=== PATIENT | female | born 1940 | race Caucasian/White ===

== ENCOUNTER → 2016-11-30 | Outpatient (CLI) | payer MEDICARE, BC ==
--- NOTE | 2016-12-03 08:53 | MM ---
Reason for exam: screening (asymptomatic). Last mammogram was performed 1 year ago. History: Patient is postmenopausal. Family history of premenopausal breast cancer in sister at age 57. Physical Findings: A clinical breast exam by your physician is recommended on an annual basis and results should be correlated with mammographic findings. MG Screening Mammo w CAD Bilateral CC and MLO view(s) were taken. Prior study comparison: November 28, 2015, bilateral MG screening mammo w CAD. November 26, 2014, bilateral MG screening mammo w CAD. The breast tissue is almost entirely fat. There is chronic nodularity in the left breast. No significant changes when compared with prior studies. ASSESSMENT: Benign, BI-RAD 2 RECOMMENDATION: Routine screening mammogram of both breasts in 1 year.
== END | disposition home or self-care (01) ==
LOC: RADMAMWWP 08:40
PROVIDERS: ATTEND Internal Medicine
DX: Z12.31 Encounter for screening mammogram for malignant neoplasm of breast (principal)

== ENCOUNTER 2017-07-04 14:26 | Emergency (ER) | payer MEDICARE, BC ==
[2017-07-04] MEDS ORDERED: ONDANSETRON 4 MG/2 ML VIAL IVP STA (14:54)
[2017-07-04] MEDS ORDERED: HYDROmorphone 1 MG/ML 1 ML SYRINGE IVP STA (14:54)
[2017-07-04] MEDS ORDERED: SODIUM CHLORIDE 0.9% 1,000 ML IV STA (14:54)
[2017-07-04] MEDS ORDERED: PANTOPRAZOLE 40 MG/10 ML VIAL IVP STA (14:54)
--- NOTE | 2017-07-04 14:59 | ED ---
General Adult HPI - General Chief complaint: Abdominal Pain Stated complaint: abdominal pain/diarrhea Time Seen by Provider: 07/04/17 14:42 Source: patient, RN notes reviewed Mode of arrival: ambulatory Limitations: no limitations - History of Present Illness Initial comments: Patient is 76-year-old female who presents emergency room today with a chief complaint of abdominal pain and blood in her stool. She does admit to a history of hemorrhoids. She states she saw some bright red blood on the toilet paper earlier today. She states she's had to bowel movements that she has seen blood. She does admit to abdominal cramping type pain in the lower abdomen. Admits to history of colitis. She states she has felt nauseous at times. She states symptoms started just 2 hours ago. She denies any other complaints or associated symptoms at this time. Patient denies any recent fever, chills, shortness of breath, chest pain, vomiting, numbness or tingling, dysuria or hematuria, constipation or diarrhea, headaches or visual changes, or any other complaints. - Related Data Home Medications Medication Instructions Recorded Confirmed Acetaminophen Tab [Tylenol Tab] 650 mg PO Q6H PRN 07/04/17 07/04/17 Atorvastatin [Lipitor] 10 mg PO DAILY 07/04/17 07/04/17 Dicyclomine [Bentyl] 10 mg PO BID PRN 07/04/17 07/04/17 Metoprolol Tartrate [Lopressor] 50 mg PO BID 07/04/17 07/04/17 Omeprazole 20 mg PO BID 07/04/17 07/04/17 amLODIPine BESYLATE/BENAZEPRIL 1 cap PO DAILY 07/04/17 07/04/17 [Lotrel 5-20 mg Capsule] Previous Rx's Medication Instructions Recorded Hydrocortisone Pr Cream 1 applic RECTAL TID #1 tube 07/04/17 [Proctosol-Hc 2.5%] Polyethylene Glycol 3350 [Miralax] 17 gm PO DAILY #5 packet 07/04/17 Allergies Allergy/AdvReac Type Severity Reaction Status Date / Time Penicillins Allergy Swelling Verified 07/04/17 15:03 Sulfa (Sulfonamide Allergy Unknown Verified 07/04/17 15:03 Antibiotics) Review of Systems ROS Statement: Those systems with pertinent positive or pertinent negative responses have been documented in the HPI. ROS Other: All systems not noted in ROS Statement are negative. Past Medical History Past Medical History: Hypertension Additional Past Medical History / Comment(s): colitis, History of Any Multi-Drug Resistant Organisms: None Reported Additional Past Surgical History / Comment(s): colonoscopy Past Psychological History: No Psychological Hx Reported Smoking Status: Former smoker Past Alcohol Use History: None Reported Past Drug Use History: None Reported General Exam - General Exam Comments Initial Comments: General: The patient is awake and alert, in no distress, and does not appear acutely ill. Eye: Pupils are equal, round and reactive to light, extra-ocular movements are intact. No nystagmus. There is normal conjunctiva bilaterally. No signs of icterus. Ears, nose, mouth and throat: There are moist mucous membranes and no oral lesions. Neck: The neck is supple, there is no tenderness or JVD. Cardiovascular: There is a regular rate and rhythm. No murmur, rub or gallop is appreciated. Respiratory: Lungs are clear to auscultation, respirations are non-labored, breath sounds are equal. No wheezes, stridor, rales, or rhonchi. Gastrointestinal: Soft, non-distended, non-tender abdomen without masses or organomegaly noted. There is no rebound or guarding present. No CVA tenderness. Bowel sounds are unremarkable. Musculoskeletal: Normal ROM, no tenderness. Strength 5/5. Sensation intact. Pulses equal bilaterally 2+. Neurological: A&O x 3. CN II-XII intact, There are no obvious motor or sensory deficits. Coordination appears grossly intact. Speech is normal. Skin: Skin is warm and dry and no rashes or lesions are noted. Psychiatric: Cooperative, appropriate mood & affect, normal judgment. Limitations: no limitations Course Vital Signs 07/04/17 07/04/17 14:35 17:12 Temperature 96.8 F L Pulse Rate 76 73 Respiratory 18 24 Rate Blood Pressure 140/67 107/59 O2 Sat by Pulse 98 96 Oximetry Medical Decision Making - Medical Decision Making Patient's CT reviewed does show currently. Hiatal hernia. There is some ectasia of the biliary tree that is worse than last exam. Distal common bile duct obstruction cannot be entirely excluded. Multiple small bilateral renal cortical cyst. Cyst are increased compared to old exam. Arthrosclerotic vascular disease. Stable fibrotic changes at the lung bases. Labs reviewed does show hemoglobin 13. White count 11.6. Bring labs reviewed. Case discussed with did come here to the emergency room to evaluate patient. Patient does admit to a history of hemorrhoids. States she was straining earlier today to have bowel movement. At this time he feels comfortable discharging her home to follow up with PCP place her on medications for her hemorrhoids of proctosol and MiraLAX. Vitals are stable hemoglobin stable will be discharged. Close follow-up family doctor or return to emergency room if any symptoms increase or worsen. - Lab Data Result diagrams: 07/04/17 15:35 07/04/17 15:35 Lab Results 07/04/17 07/04/17 07/04/17 Range/Units 15:35 15:35 15:35 WBC 11.6 H (3.8-10.6) k/uL RBC 4.15 (3.80-5.40) m/uL Hgb 13.0 (11.4-16.0) gm/dL Hct 38.9 (34.0-46.0) % MCV 93.8 (80.0-100.0) fL MCH 31.4 (25.0-35.0) pg MCHC 33.5 (31.0-37.0) g/dL RDW 13.5 (11.5-15.5) % Plt Count 152 (150-450) k/uL Neutrophils % 84 % Lymphocytes % 10 % Monocytes % 4 % Eosinophils % 1 % Basophils % 0 % Neutrophils # 9.7 H (1.3-7.7) k/uL Lymphocytes # 1.1 (1.0-4.8) k/uL Monocytes # 0.4 (0-1.0) k/uL Eosinophils # 0.2 (0-0.7) k/uL Basophils # 0.0 (0-0.2) k/uL PT 11.4 (9.0-12.0) sec INR 1.1 (<1.2) APTT 21.8 L (22.0-30.0) sec Sodium 139 (137-145) mmol/L Potassium 4.8 (3.5-5.1) mmol/L Chloride 105 (98-107) mmol/L Carbon Dioxide 24 (22-30) mmol/L Anion Gap 10 mmol/L BUN 22 H (7-17) mg/dL Creatinine 1.04 (0.52-1.04) mg/dL Est GFR (MDRD) Af Amer >60 (>60 ml/min/1.73 sqM) Est GFR (MDRD) Non-Af 51 (>60 ml/min/1.73 sqM) Glucose 172 H (74-99) mg/dL Calcium 9.3 (8.4-10.2) mg/dL Total Bilirubin 0.6 (0.2-1.3) mg/dL AST 22 (14-36) U/L ALT 26 (9-52) U/L Alkaline Phosphatase 137 H (38-126) U/L Total Protein 7.0 (6.3-8.2) g/dL Albumin 3.9 (3.5-5.0) g/dL Lipase 231 (23-300) U/L Stool Occult Blood (Negative) 07/04/17 Range/Units 15:35 WBC (3.8-10.6) k/uL RBC (3.80-5.40) m/uL Hgb (11.4-16.0) gm/dL Hct (34.0-46.0) % MCV (80.0-100.0) fL MCH (25.0-35.0) pg MCHC (31.0-37.0) g/dL RDW (11.5-15.5) % Plt Count (150-450) k/uL Neutrophils % % Lymphocytes % % Monocytes % % Eosinophils % % Basophils % % Neutrophils # (1.3-7.7) k/uL Lymphocytes # (1.0-4.8) k/uL Monocytes # (0-1.0) k/uL Eosinophils # (0-0.7) k/uL Basophils # (0-0.2) k/uL PT (9.0-12.0) sec INR (<1.2) APTT (22.0-30.0) sec Sodium (137-145) mmol/L Potassium (3.5-5.1) mmol/L Chloride (98-107) mmol/L Carbon Dioxide (22-30) mmol/L Anion Gap mmol/L BUN (7-17) mg/dL Creatinine (0.52-1.04) mg/dL Est GFR (MDRD) Af Amer (>60 ml/min/1.73 sqM) Est GFR (MDRD) Non-Af (>60 ml/min/1.73 sqM) Glucose (74-99) mg/dL Calcium (8.4-10.2) mg/dL Total Bilirubin (0.2-1.3) mg/dL AST (14-36) U/L ALT (9-52) U/L Alkaline Phosphatase (38-126) U/L Total Protein (6.3-8.2) g/dL Albumin (3.5-5.0) g/dL Lipase (23-300) U/L Stool Occult Blood Positive H (Negative) Disposition Clinical Impression: History of hemorrhoids, Abdominal pain Disposition: HOME SELF-CARE Condition: Poor Instructions: Abdominal Pain (ED) Additional Instructions: Please follow-up the family doctor tomorrow. Please use medication as prescribed and return here to the emergency room if any symptoms increase or worsen appropriate concerns. Prescriptions: Hydrocortisone Pr Cream [Proctosol-Hc 2.5%] 1 applic RECTAL TID #1 tube Polyethylene Glycol 3350 [Miralax] 17 gm PO DAILY #5 packet Referrals: Jhonathan Pederson MD [Primary Care Provider] - 1-2 days Time of Disposition: 17:49
[2017-07-04 15:57] LABS: Basophils % (A) 0 %; CHCM 34.3; Eosinophils # (A) 0.2 k/uL (0-0.7); Eosinophils % (A) 1 %; HCT 38.9 % (34.0-46.0); HDW 2.42; Luc # (Auto) 0.12; Luc % (Auto) 1; Lymphocytes # (A) 1.1 k/uL (1.0-4.8); Lymphocytes % (A) 10 %; MCH 31.4 pg (25.0-35.0); MCHC 33.5 g/dL (31.0-37.0); MCV 93.8 fL (80.0-100.0); Mean Platelet Volume 8.9; Monocytes # (A) 0.4 k/uL (0-1.0); Monocytes % (A) 4 %; Neutrophils # (A) 9.7 k/uL (1.3-7.7); Neutrophils % (A) 84 %; RBC 4.15 m/uL (3.80-5.40); RDW 13.5 % (11.5-15.5); WBC 11.6 k/uL (3.8-10.6); WBC (Perox) 11.38
[2017-07-04 16:00] LABS: ALT 26 U/L (9-52); AST 22 U/L (14-36); Alkaline Phosphatase 137 U/L (38-126); Anion Gap 10 mmol/L; Blood Urea Nitrogen 22 mg/dL (7-17); Calcium 9.3 mg/dL (8.4-10.2); Carbon Dioxide 24 mmol/L (22-30); Chloride 105 mmol/L (98-107); Glucose 172 mg/dL (74-99); Non-African American GFR(MDRD) 51 (>60 ml/min/1.73 sqM); Potassium 4.8 mmol/L (3.5-5.1); Sodium 139 mmol/L (137-145); Total Bilirubin 0.6 mg/dL (0.2-1.3)
--- NOTE | 2017-07-04 16:00 | XR ---
EXAMINATION TYPE: XR KUB DATE OF EXAM: 07/04/2017 COMPARISON: 10/29/2012 HISTORY: Nausea and lower abdominal pain TECHNIQUE: One view abdominal series FINDINGS: The osseous structures are intact. The bowel gas pattern is nonspecific. Lung bases are clear. Ther e is a hiatal hernia. Previous surgery involving the right upper quadrant noted. Diffuse osteopenia n oted. Vascular calcification seen. Air-fluid levels seen within the right lower quadrant. IMPRESSION: 1. Nonspecific abdomen. Single air-fluid level seen within the right lower quadrant which can be see n with enteritis, colitis or ileus. Consider follow-up CT scan.
[2017-07-04 16:12] LABS: INR 1.1 (<1.2); Prothrombin Time 11.4 sec (9.0-12.0)
[2017-07-04] MEDS ORDERED: RX INFO: IV CONTRAST WAS GIVEN 1 EACH MISC MISCELLANE PRN (16:15)
[2017-07-04 16:33] LABS: Partial Thromboplastin Time 21.8 sec (22.0-30.0)
--- NOTE | 2017-07-04 16:53 | CT ---
EXAMINATION TYPE: CT abdomen pelvis w con DATE OF EXAM: 07/04/2017 COMPARISON: 02/15/2012 HISTORY: Lower pelvic pain and hematuria. CT DLP: 1046 mGycm Automated exposure control for dose reduction was used. TECHNIQUE: Helical acquisition of images was performed from the lung bases through the pelvis. CONTRAST: Performed without Oral Contrast and with IV Contrast, patient injected with 80 mL of Visipaque 320. FINDINGS: There is fibrotic change and atelectasis at the lung bases. There is a large hiatal hernia. Heart is enlarged. There is mild ectasia of the biliary tree. There are clips from cholecystectomy. Common bile duct vic sures 12 mm. Spleen and pancreas appear normal. There are multiple bilateral renal cortical cysts that measure up to 2 cm. There is no hydronephrosis . Ureters are not dilated. There is no retroperitoneal adenopathy. Abdominal aorta is atheromatous. Bladder distends smoothly. There is no ascites. I see no intestinal wall thickening. There is no sign of bowel obstruction.: IMPRESSION: CARDIOMEGALY. HIATAL HERNIA. THERE IS SOME ECTASIA OF THE BILIARY TREE THAT IS WORSE THAN LAST EXAM. DISTAL COMMON BILE DUCT OBSTRUCTION CANNOT BE ENTIRELY EXCLUDED. MULTIPLE SMALL BILATERAL RENAL CORTICAL CYSTS. CYSTS ARE INCREASED COMPARED TO OLD EXAM. I DO NOT SEE A CAUSE FOR HEMATURIA. ATHEROSCLEROTIC VASCULAR DISEASE. STABLE FIBROTIC CHANGES AT THE LUNG BASES.
[2017-07-04 18:16] VITALS: BP 125/54; PULSE 62; RESP 18; TEMP 97.2
[2017-07-04 20:12] LABS: Amorphous Sediment,Urine Rare /hpf; Appearance,Urine Clear (Clear); Bacteria,Urine Moderate /hpf; Bilirubin,Urine Negative (Negative); Glucose,Urine (UA) Negative (Negative); Ketones,Urine Negative (Negative); Leukocyte Esterase,Urine Moderate (Negative); Mucus,Urine Rare /hpf; Nitrite,Urine Positive (Negative); PH, Urine 5.5 (5.0-8.0); Particle Count 12969; Protein,Urine 1+ (Negative); RBC,Urine 6 /hpf (0-5); Squamous Epithelial Cell,Urine 9 /hpf (0-4); UA Billing (MACRO vs. MICRO) MICRO; Urobilinogen,Urine <2.0 mg/dL (<2.0); WBC,Urine 171 /hpf (0-5)
[2017-07-04 20:22] LABS: Specific Gravity,Urine >1.050 (1.001-1.035)
== END 2017-07-04 18:26 | disposition home or self-care (01) ==
LOC: EC 14:26
DX: K64.9 Unspecified hemorrhoids (principal); R10.30 Lower abdominal pain, unspecified; R11.0 Nausea; I10 Essential (primary) hypertension; Z87.891 Personal history of nicotine dependence; Z79.899 Other long term (current) drug therapy; Z88.0 Allergy status to penicillin; Z88.2 Allergy status to sulfonamides
CPT/HCPCS: 36415; 80053; 83690; 85025; 85610; 85730; 82272; 81001; 74000; 74177; 99284; 96374; 96375 ×2; 96361 ×3; J2405; J1170; Q9967; C9113

== ENCOUNTER → 2017-12-25 | Outpatient (CLI) | payer MEDICARE, BC ==
--- NOTE | 2017-12-26 09:28 | MM ---
Reason for exam: screening (asymptomatic). Last mammogram was performed 1 year and 1 month ago. History: Patient is postmenopausal. Family history of premenopausal breast cancer in sister at age 57. Physical Findings: A clinical breast exam by your physician is recommended on an annual basis and results should be correlated with mammographic findings. MG Screening Mammo w CAD Bilateral CC and MLO view(s) were taken. Prior study comparison: November 30, 2016, bilateral MG screening mammo w CAD. November 28, 2015, bilateral MG screening mammo w CAD. There are scattered fibroglandular densities. No significant changes when compared with prior studies. ASSESSMENT: Benign, BI-RAD 2 RECOMMENDATION: Routine screening mammogram of both breasts in 1 year.
== END | disposition home or self-care (01) ==
LOC: RADMAMWWP 09:05
PROVIDERS: ATTEND Internal Medicine
DX: Z12.31 Encounter for screening mammogram for malignant neoplasm of breast (principal)
CPT/HCPCS: 77067

== ENCOUNTER 2018-04-21 10:18 | Day surgery (SDC) | payer MEDICARE, BC ==
[2018-04-17 10:39] VITALS: BMI 27.7
[~2018-04-21 10:18] MED LIST: DEXAMETHASONE SOD PHOSPHATE 10 MG/ML 1 ML VIAL IV ONE; LACTATED RINGERS 1,000 ML IV SCH; MIDAZOLAM 2 MG/2 ML VIAL IV PRN; ONDANSETRON 4 MG/2 ML VIAL IVP ONE; SCOPOLAMINE 1.5MG/72HR PATCH TRANSDERM ONE; ceFAZolin IN SWFI 2 GM/20 ML SYRINGE IVP ONE; fentaNYL (PF) 50 MCG/ML 2 ML AMP IV PRN
[2018-04-21 11:09] VITALS: TEMP 97.4
[2018-04-21] MEDS ORDERED: LIDOCAINE 1% 20 ML VIAL (10MG/ML) FOR IV START INTRADERMA ONE (11:18)
--- NOTE | 2018-04-21 12:18 | P.ONQ ---
Anesthesiology Proc Note - PNB - Peripheral Nerve Block Performed Left Infraclavicular Single Time Out Performed: Yes (1205) Procedure Start Time: 12:05 Procedure Stop Time: 12:10 Indication: Analgesia, Dx/Pain Location (Left hand pain), Requested by physician Sedation Type: Sedate with meaningful contact maintained Preparation: Sterile Prep Position: Supine Catheter: None Needle Types: On-Q Needle Size: 50mm (2") Needle Gauge: 21 Technique: Ultrasound (15ml 0.5% Ropivacaine + 15ml 2% Lidocaine w/ 1:200,000 epinephrine) Blood Aspirated: No Pain Paresthesia on Injection Noted: No
[2018-04-21] MEDS ORDERED: SODIUM CHLORIDE 0.9% 50 ML with CLINDAMYCIN 600 MG IV ONE ×2 (12:54)
[2018-04-21] MEDS ORDERED: MIDAZOLAM 2 MG/2 ML VIAL ONE (12:54)
[2018-04-21] MEDS ORDERED: PROPOFOL 10 MG/ML 20 ML VIAL IV ONE (12:54)
[2018-04-21] MEDS ORDERED: fentaNYL (PF) 50 MCG/ML 2 ML AMP ONE (12:54)
--- NOTE | 2018-04-21 13:51 | XR ---
EXAMINATION TYPE: XR wrist limited LT DATE OF EXAM: 04/21/2018 COMPARISON: NONE TECHNIQUE: Two views submitted HISTORY: Post op FINDINGS: There is postsurgical change in near anatomic alignment. There is soft tissue edema and emphysema. IMPRESSION: 1. Postoperative change. Appears in near-anatomic alignment
--- NOTE | 2018-04-21 13:52 | FL ---
EXAMINATION TYPE: FL guidance operating room DATE OF EXAM: 04/21/2018 HISTORY: Flouroscopy time 14 seconds of fluoroscopy provided. IMPRESSION: 1. Fluoroscopy time.
[2018-04-21 14:05] VITALS: RESP 18
[2018-04-21 14:51] VITALS: BP 113/63; PULSE 60
--- NOTE | 2018-04-22 11:12 | OP ---
OPERATIVE REPORT SURGERY DATE: 04/21/2018 PREOPERATIVE DIAGNOSIS: Close comminuted intra-articular fracture of distal left radius with displacement and instability (greater than 3 fragments). FINAL DIAGNOSIS: Close comminuted intra-articular fracture of the distal left radius with displacement and instability (greater than 3 fragments). PROCEDURE: Open reduction, internal fixation, left distal radius with volar plate. INDICATION: A 77-year-old woman sustained this very comminuted displaced fracture recently. It was volar displaced. Stability with internal fixation was quite satisfactory. IMPLANTS: A standard Juan Varivax plate was used. PROCEDURE: A 77-year-old woman was taken to the operative suite and given IV sedation to supplement an axillary block which was performed in the preop holding area by the Department of Anesthesia was excellent result. Her arm was prepped and draped in usual manner. It was then elevated, exsanguinated, cuff was inflated to 250 mmHg. The volar longitudinal incision was created with a distal D-shaped extension. An extended FCR approach was used. Blunt resection was taken to the insertion of the pronator quadratus, which was sharply dissected off the radius. The distal radius and fracture fragments were identified. The radial artery was gently retracted to the radial aspect and kept out of harm's way. The median nerve was kept toward the midline. Fracture was manually reduced and a standard VariAx plate was applied and secured in the typical manner. C-arm fluoroscopy was used for monitoring. Essentially anatomic reduction was obtained. C-arm fluoroscopy ensured, no screws were either in the joint nor extended dorsally into the soft tissue. The wound was thoroughly irrigated and tourniquet was released. The pronator quadratus was injured significantly from the fracture and repair really was not possible. A running 3-0 subcutaneous Vicryl suture was used for closure followed by 5-0 nylon suture. Soft bulky dressing and volar plaster splint were applied and patient taken to recovery room in satisfactory condition. MMODL / IJN: [id number] /
--- NOTE | 2018-04-30 16:50 | CDI ---
Outpatient Documentation Clarification Form Date: 04/30/18 CDS/Manager Of Broadcast Content Name: Queenie Olsen Phone: If any questions, call Irena Sams Registered Medical Assistant at [phone] Patient Name: Yasmeen Blackwell Admit Date: 04/21/18 Discharge Date: 04/21/18 ATTENTION: The [facility] Coding Staff appreciate your assistance in clarifying documentation. Please respond to the clarification below the line at the bottom and electronically sign. The [facility] Coding staff will review the response and follow-up if needed. Please note: Queries are made part of the Legal Health Record. If you have any questions, please contact the Registered Medical Assistant. Dear Dr. Dillard, The H&P states the patient injured her wrist when she tripped. Was the trip followed by a fall, or without a fall? This information is necessary in order to properly code the external cause of this injury. As a coding professional, I may not assume one way or the other. Thank you for your kind consideration. MTDD
== END 2018-04-21 15:33 | disposition home or self-care (01) ==
LOC: OR 10:18
PROVIDERS: ATTEND Orthopaedic Surgery Hand Surgery
DX: S52.572A Other intraarticular fracture of lower end of left radius, initial encounter for closed fracture (principal); E78.5 Hyperlipidemia, unspecified; I10 Essential (primary) hypertension; Z79.899 Other long term (current) drug therapy; Z87.891 Personal history of nicotine dependence; W18.40XA Slipping, tripping and stumbling without falling, unspecified, initial encounter; W01.0XXA Fall on same level from slipping, tripping and stumbling without subsequent striking against object, initial encounter
CPT/HCPCS: 25609; 64450; 73100; C1713; J2250; J1100; J2405; J3010; J2704

== ENCOUNTER → 2018-12-29 | Outpatient (CLI) | payer MEDICARE, BC ==
--- NOTE | 2018-12-29 13:04 | MM ---
Reason for exam: screening (asymptomatic). Last mammogram was performed 1 year ago. History: Patient is postmenopausal. Family history of premenopausal breast cancer in sister at age 57. Physical Findings: A clinical breast exam by your physician is recommended on an annual basis and results should be correlated with mammographic findings. MG Screening Mammo w CAD Bilateral CC and MLO view(s) were taken. Prior study comparison: December 25, 2017, bilateral MG screening mammo w CAD. November 30, 2016, bilateral MG screening mammo w CAD. There are scattered fibroglandular densities. There is no discrete abnormality. No significant changes when compared with prior studies. ASSESSMENT: Negative, BI-RAD 1 RECOMMENDATION: Routine screening mammogram of both breasts in 1 year.
== END | disposition home or self-care (01) ==
LOC: RADMAMWWP 08:00
PROVIDERS: ATTEND Internal Medicine
DX: Z12.31 Encounter for screening mammogram for malignant neoplasm of breast (principal)
CPT/HCPCS: 77067

== ENCOUNTER 2019-03-25 17:36 | Emergency (ER) | payer MEDICARE, BC ==
--- NOTE | 2019-03-25 19:08 | XR ---
EXAMINATION TYPE: XR knee complete bilateral DATE OF EXAM: 03/25/2019 COMPARISON: NONE HISTORY: Pain TECHNIQUE: 3 views each knee FINDINGS: There is significant soft tissue swelling anterior to the left patella. I see no fracture n or dislocation. There is no sign of joint effusion. Joint spaces are normal. IMPRESSION: Left-sided soft tissue swelling. No fracture seen.
--- NOTE | 2019-03-25 19:08 | XR ---
EXAMINATION TYPE: XR humerus RT DATE OF EXAM: 03/25/2019 COMPARISON: NONE HISTORY: Pain TECHNIQUE: 2 views FINDINGS: I see no fracture nor dislocation. Shoulder joint and elbow joint appear intact. IMPRESSION: Negative right humerus exam.
--- NOTE | 2019-03-25 19:11 | CT ---
EXAMINATION TYPE: CT brain rosie monge DATE OF EXAM: 03/25/2019 COMPARISON: None HISTORY: Fall today. Left sided facial injury. CT DLP: 1037.2 brain and facial scanned together mGycm Automated exposure control for dose reduction was used. TECHNIQUE: CT scan of the head and cervical spine are performed without contrast. FINDINGS: There is cerebral cortical atrophy. There is no mass effect nor midline shift. There is n o sign of intracranial hemorrhage. The calvarium is intact. Cervical vertebra have normal alignment. There is degenerative moderate disc space narrowing at C5-6. There is spurring of the endplates. Posterior elements are intact. There is mild hypertrophic facet arthropathy. Skull base is intact. 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 No fracture seen. Cerebral atrophy. No acute intracranial abnormality.
--- NOTE | 2019-03-25 19:12 | CT ---
EXAMINATION TYPE: CT facial bones wo con DATE OF EXAM: 03/25/2019 COMPARISON: None HISTORY: Fall today. Left sided facial injury. CT DLP: 1037.2 brain and facial scanned together mGycm Automated exposure control for dose reduction was used. TECHNIQUE: CT scan of the sinuses is performed without contrast, axial images are obtained, coronal r eformatted images are also reviewed. FINDINGS: The orbital margins are intact. There is no evidence of a blowout fracture. Mandibular ring is intact. Temporomandibular joints appear normal. Zygomatic arches are intact. The maxilla is intact. Nasal bone appears intact. There is no evidence of retro-orbital mass. There i s fairly normal aeration of the paranasal sinuses. IMPRESSION: Negative CT scan of the facial bones. No fracture.
--- NOTE | 2019-03-25 19:25 | ED ---
Fall HPI - General Chief Complaint: Fall Stated Complaint: Fall Time Seen by Provider: 03/25/19 17:53 Source: patient Mode of arrival: wheelchair - History of Present Illness Initial Comments: 78-year-old female presenting for follow-up. Patient states that she tripped over her own two feet falling forward onto her left knee she states she had left side of her face. She states she also had pain in the right mid arm. Patient denies loss of consciousness. Patient denies any use of anticoagulation. Patient states she is most concerned of her left knee as it is swollen and painful. She states she is able to weight-bear. She denies any neck or back pain. Patient has a nausea vomiting headache dizziness loss of vision. Patient has any pain of the ankles wrist or elbows. Patient denies any numbness tingling or loss sensation. Remaining review of systems negative patient denies any other areas of injury. Upon arrival patient's amateur appearing well no signs of acute distress - Related Data Home Medications Medication Instructions Recorded Confirmed Acetaminophen Tab [Tylenol Tab] 325 - 650 mg PO Q6H PRN 07/04/17 04/21/18 Atorvastatin [Lipitor] 10 mg PO DAILY 07/04/17 04/21/18 Dicyclomine [Bentyl] 10 mg PO BID PRN 07/04/17 04/21/18 Metoprolol Tartrate [Lopressor] 50 mg PO BID 07/04/17 04/21/18 amLODIPine BESYLATE/BENAZEPRIL 1 cap PO DAILY 07/04/17 04/21/18 [Lotrel 5-20 mg Capsule] Ranitidine HCl [Zantac] 150 mg PO BID 04/17/18 04/21/18 Allergies Allergy/AdvReac Type Severity Reaction Status Date / Time Penicillins Allergy Swelling Verified 04/21/18 11:13 Sulfa (Sulfonamide Allergy Swelling Verified 04/21/18 11:13 Antibiotics) Review of Systems ROS Statement: Those systems with pertinent positive or pertinent negative responses have been documented in the HPI. ROS Other: All systems not noted in ROS Statement are negative. Past Medical History Past Medical History: Hyperlipidemia, Hypertension Additional Past Medical History / Comment(s): FX LEFT WRIST, IN HALF CAST, colitis, History of Any Multi-Drug Resistant Organisms: None Reported Past Surgical History: Appendectomy, Cholecystectomy, Tubal Ligation Additional Past Surgical History / Comment(s): colonoscopy Past Anesthesia/Blood Transfusion Reactions: No Reported Reaction Past Psychological History: No Psychological Hx Reported Smoking Status: Former smoker Past Alcohol Use History: None Reported Past Drug Use History: None Reported General Exam - General Exam Comments Initial Comments: General: The patient is awake and alert, in no distress, and does not appear acutely ill. Eye: +3mm pupils are equal, round and reactive to light, extra-ocular movements are intact. No nystagmus. There is normal conjunctiva bilaterally. No signs of icterus. Ears, nose, mouth and throat: There are moist mucous membranes and no oral lesi ons. TM WNL. No raccoon or Correa sign. Neck: The neck is supple, there is no tenderness or JVD. Tenderness to palpation midline or paravertebral the cervical thoracic or lumbar spine. Cardiovascular: There is a regular rate and rhythm. No murmur, rub or gallop is appreciated. Respiratory: Lungs are clear to auscultation, respirations are non-labored, breath sounds are equal. No wheezes, stridor, rales, or rhonchi. Gastrointestinal: Soft, non-distended, non-tender abdomen without masses or organomegaly noted. There is no rebound or guarding present. No CVA tenderness. Bowel sounds are unremarkable. Musculoskeletal: Upon inspection of the joints of the upper and lower extremities there is soft tissue swelling of the left knee. There is superficial abrasion. Otherwise no others areas of soft tissue swelling or erythema. Patient is able to range at the shoulders bilaterally well as the wrist. No limitations. Patient points to tenderness over the mid humerus shaft. No pain to palpation of the clavicles anterior posterior shoulder. Negative logroll. Patient is able to extend the knees bilaterally. No tenderness to palpation of the right knee. Patient is anterior tenderness palpation of the left knee. Patient is able to fully range at the ankles bilaterally. No point localized tenderness. Sensation intact both proximal and distal to injury site (lelft knee). However sensation was tested on the upper extremities and lower extremities bilaterally no deficits noted. Strength 5/5 all large joints of the upper and lower extremities. Radial and DP pulses equal bilaterally 2+. Neurological: A&O x 3. CN II-XII intact, There are no obvious motor or sensory deficits. Coordination appears grossly intact. Speech is normal. Skin: Skin is warm and dry and no rashes or lesions are noted. Psychiatric: Cooperative, appropriate mood & affect, normal judgment. Limitations: no limitations Course Vital Signs 03/25/19 03/25/19 17:43 19:57 Temperature 98.0 F 97.9 F Pulse Rate 62 56 L Respiratory 18 16 Rate Blood Pressure 175/81 145/72 O2 Sat by Pulse 98 96 Oximetry Medical Decision Making - Medical Decision Making 78-year-old male presenting for follow-up. Imaging studies negative for acute osseous process. Extensor mechanism intact of the left knee. Anterior soft tissue swelling. Patient neurovascularly intact. Patient is able to weight- bear ambulate and range at the left knee. Patient placed in knee immobilizer however encouraged to remove it daily multiple times to decrease the risk of stiffness. CT of the brain and C-spine and facial bones reveal no injury. Patient has no neurological complaints. No focal neurological deficits. Imaging studies were obtained due to history of having left-sided face with patient's advanced age. Imaging studies of the right humerus revealed no acute injury. At this time I feel patient still for discharge with diagnosis of left knee pain, from mechanical fall. I discussed the case by attending provider Dr. Mathew who is agreeable with care plan and discharge. Importance of follow-up and return parameters were discussed at length the patient who verbalized understanding. Patient states she is ready to go home. Patient was discharged able to weight-bear appearing well Disposition Clinical Impression: Fall, Right arm pain, Left knee pain, Left-sided face pain Disposition: HOME SELF-CARE Condition: Good Instructions (If sedation given, give patient instructions): Fall Prevention for Older Adults (ED), R.I.C.E. Treatment (ED) Additional Instructions: Please use medication as discussed. Please follow-up with family doctor in the next 2 days. Please follow up with her orthopedic surgeon within the next 2-3 days if symptoms persist. Please return to emergency room if the symptoms increase or worsen or for any other concerns. Is patient prescribed a controlled substance at d/c from ED?: No Referrals: Jhonathan Pederson MD [Primary Care Provider] - 1-2 days Santo Dillard DO [Doctor of Osteopathic Medicine] - 1-2 days Time of Disposition: 19:48
[2019-03-25 19:58] VITALS: BP 145/72; PULSE 56; RESP 16; TEMP 97.9
== END 2019-03-25 19:58 | disposition home or self-care (01) ==
LOC: EC 17:36
DX: S80.212A Abrasion, left knee, initial encounter (principal); R51 Headache; M79.601 Pain in right arm; R11.2 Nausea with vomiting, unspecified; R42 Dizziness and giddiness; H54.7 Unspecified visual loss; E78.5 Hyperlipidemia, unspecified; I10 Essential (primary) hypertension; Z87.891 Personal history of nicotine dependence; Z79.899 Other long term (current) drug therapy; Z88.0 Allergy status to penicillin; Z88.2 Allergy status to sulfonamides; W18.09XA Striking against other object with subsequent fall, initial encounter; Y92.009 Unspecified place in unspecified non-institutional (private) residence as the place of occurrence of the external cause
CPT/HCPCS: 73562; 73060; 72125; 70486; 70450; 99284; L1830

== ENCOUNTER 2020-02-14 18:21 | Emergency (ER) | payer MEDICARE, BC ==
[2020-02-14 18:28] VITALS: TEMP 97.5
[2020-02-14] MEDS ORDERED: HYDROmorphone 0.5 MG/0.5 ML SYRINGE IVP STA (19:11)
--- NOTE | 2020-02-14 19:17 | ED ---
General Adult HPI - General Source: patient, RN notes reviewed Mode of arrival: ambulatory Limitations: no limitations <Patricio Corona - Last Filed: 02/14/20 21:23> <Joel Oliveira - Last Filed: 02/14/20 22:20> - General Chief complaint: Fall Stated complaint: Fall Time Seen by Provider: 02/14/20 18:35 - History of Present Illness Initial comments: 79-year-old female with a past medical history of hyperlipidemia, hypertension presents to the emergency department for a chief complaint of right shoulder pain. Patient states she hurt her ankle a few days ago when she was at her sister's house. States her house is new and she has not used to the lay out and she tripped injuring her right ankle. Today patient states that because of his ankle she was leaving her house and again tripped and fell on her right shoulder. States she cannot move her right shoulder because of the pain. She did not hit her head. She is not on blood thinners.Patient has no other complaints at this time including shortness of breath, chest pain, abdominal pain, nausea or vomiting, headache, or visual changes. (Patricio Corona) - Related Data Home Medications Medication Instructions Recorded Confirmed Acetaminophen Tab [Tylenol Tab] 325 - 650 mg PO Q6H PRN 07/04/17 04/21/18 Atorvastatin [Lipitor] 10 mg PO DAILY 07/04/17 04/21/18 Dicyclomine [Bentyl] 10 mg PO BID PRN 07/04/17 04/21/18 Metoprolol Tartrate [Lopressor] 50 mg PO BID 07/04/17 04/21/18 amLODIPine BESYLATE/BENAZEPRIL 1 cap PO DAILY 07/04/17 04/21/18 [Lotrel 5-20 mg Capsule] Ranitidine HCl [Zantac] 150 mg PO BID 04/17/18 04/21/18 Allergies Allergy/AdvReac Type Severity Reaction Status Date / Time Penicillins Allergy Swelling Verified 02/14/20 18:26 Sulfa (Sulfonamide Allergy Swelling Verified 02/14/20 18:26 Antibiotics) Review of Systems ROS Other: All systems not noted in ROS Statement are negative. <Patricoi Corona - Last Filed: 02/14/20 21:23> ROS Other: All systems not noted in ROS Statement are negative. <Joel Oliveira - Last Filed: 02/14/20 22:20> ROS Statement: Those systems with pertinent positive or pertinent negative responses have been documented in the HPI. Past Medical History Past Medical History: Hyperlipidemia, Hypertension Additional Past Medical History / Comment(s): FX LEFT WRIST, IN HALF CAST, colitis, History of Any Multi-Drug Resistant Organisms: ESBL Date of last positivie culture/infection: 09/30/19 ESBL E. coli MDRO Source:: Urine Past Surgical History: Appendectomy, Cholecystectomy, Tubal Ligation Additional Past Surgical History / Comment(s): colonoscopy Past Anesthesia/Blood Transfusion Reactions: No Reported Reaction Past Psychological History: No Psychological Hx Reported Smoking Status: Former smoker Past Alcohol Use History: None Reported Past Drug Use History: None Reported <Patricio Corona - Last Filed: 02/14/20 21:23> General Exam Limitations: no limitations General appearance: alert, in no apparent distress Head exam: Present: atraumatic, normocephalic, normal inspection Eye exam: Present: normal appearance, PERRL, EOMI. Absent: scleral icterus, conjunctival injection, periorbital swelling ENT exam: Present: normal exam, mucous membranes moist Neck exam: Present: normal inspection, full ROM. Absent: tenderness, meningismus Respiratory exam: Present: normal lung sounds bilaterally. Absent: respiratory distress, wheezes, rales, rhonchi, stridor Cardiovascular Exam: Present: regular rate, normal rhythm, normal heart sounds. Absent: systolic murmur, diastolic murmur, rubs, gallop, clicks GI/Abdominal exam: Present: soft, normal bowel sounds. Absent: distended, tenderness, guarding, rebound, rigid Neurological exam: Present: alert <Patricio Corona - Last Filed: 02/14/20 21:23> - General Exam Comments Initial Comments: Right ankle: Patient has tenderness to the lateral malleolus of the right ankle. She does not have any medial malleoli tenderness. Patient does not have any foot tenderness including the navicular or fifth metatarsal. Patient has pain with dorsiflexion of the right ankle. DP pulses 2+. There is some edema and ecchymosis noted of the right ankle. Sensation is intact. Right shoulder: Patient is holding right shoulder in abducted position. Radial pulses 2+. Sensation intact in the right hand. Patient has pain with any range of motion of the right shoulder. No ecchymosis or skin lesions. (Patricio Corona) Course Vital Signs 02/14/20 02/14/20 02/14/20 18:26 19:08 20:09 Temperature 97.5 F L Pulse Rate 69 82 Respiratory 18 18 18 Rate Blood Pressure 171/95 133/73 O2 Sat by Pulse 98 97 Oximetry 02/14/20 02/14/20 02/14/20 20:18 20:32 20:49 Temperature Pulse Rate 63 56 L 55 L Respiratory 16 17 17 Rate Blood Pressure 126/75 121/57 128/54 O2 Sat by Pulse 100 98 99 Oximetry Procedures - Orthopedic Joint Reduction Joint #1 Consent Obtained: verbal consent Side: right Joint Reduction Location: shoulder Analgesia: procedural sedation Shoulder Technique Used (if applicable): traction/counter-traction, external rotation Post-Reduction Neuro Exam: intact Post-Reduction Vascular Exam: intact Post Reduction X-Ray Obtained: Yes Post Reduction X-Ray Results: reduced Splint Applied: Yes (immobilizer) Patient Tolerated Procedure: well, no complications - Orthopedic Splinting/Casting Injury #2 Side: right Lower Extremity Injury Location: short leg Lower Extremity Immobilizer: stirrup splint <Patricio Corona - Last Filed: 02/14/20 21:23> - Procedural Sedation Procedural Sedation Start Time: 20:05 Procedural Sedation Stop Time: 20:30 Indications: fracture/dislocation reduction ASA Class: II Mallampati Airway Score: 2 Preparation: monitoring tech applied, pulse oximeter IV Etomidate Dose (mgs): 16 Complications: none Patient Tolerated Procedure: well, no complications <Joel Oliveira - Last Filed: 02/14/20 22:20> Medical Decision Making <Patricio Corona - Last Filed: 02/14/20 21:23> - Medical Decision Making 79-year-old female presents for mechanical fall. Patient is complaining of pain in the right ankle from several days ago. This does show a possible fracture inferior lateral malleolus. This is where patient's tenderness is located. X- ray of the right shoulder does show an anterior dislocation of the right humeral head. The shoulder is reduced by myself and Dr. Oliveira without difficulty. Sling was placed. She is awake and alert following reduction. X-ray of the right shoulder shows a reduction of the previous right shoulder dislocation. No acute fractures are evident. There does show mild infiltrate that may be within the right lung. However patient is not having any cough or fever. I did offer chest x-ray but she declined saying she will come back if she develops symptoms. X-ray of the right ankle shows a possible fracture of the inferior lateral malleolus. Patient did hurt her ankle area days ago and is tender over this area. Therefore she was splinted. She will follow-up with orthopedics. [facility]. She will return for any worsening symptoms. (Patricio Corona) Disposition Is patient prescribed a controlled substance at d/c from ED?: No Time of Disposition: 20:36 <Patricio Corona - Last Filed: 02/14/20 21:23> <Joel Oliveira - Last Filed: 02/14/20 22:20> Clinical Impression: Shoulder dislocation, Lateral malleolar fracture Disposition: HOME SELF-CARE Condition: Good Instructions (If sedation given, give patient instructions): Shoulder Dislocation (ED) Additional Instructions: Please take tylenol 3 for pain as needed. Keep splint in place. Keep sling in place. Follow up with orthopedics in 1-2 days. Return to the ER if you have any worsening symptoms. Referrals: Jhonathan Pederson MD [Primary Care Provider] - 1-2 days Michelle Morfin DO [Doctor of Osteopathic Medicine] - 1-2 days
--- NOTE | 2020-02-14 19:26 | XR ---
EXAMINATION TYPE: XR ankle complete RT DATE OF EXAM: 02/14/2020 COMPARISON: None HISTORY: Pain, fall TECHNIQUE: Three-view right ankle FINDINGS: There is soft tissue swelling over the lateral malleolus right ankle. Ankle mortise appears intact. There may be some vague calcification inferior to the lateral malleolus. An avulsion should be considered of this may be of indeterminate age however, the donor site appears to have a normal co rtex. No additional areas suspicious for fracture is evident. IMPRESSION: 1. Possible fracture inferior lateral malleolus is indeterminate age.
--- NOTE | 2020-02-14 19:27 | XR ---
EXAMINATION TYPE: XR shoulder complete RT DATE OF EXAM: 02/14/2020 COMPARISON: None HISTORY: Pain TECHNIQUE: 2 view right shoulder FINDINGS: There is an anterior inferior dislocation of the right humeral head from the glenoid. No ac [place] fractures are identified. Acromioclavicular junction appears normal. IMPRESSION: 1. Dislocation right humeral head, glenoid.
--- NOTE | 2020-02-14 19:27 | XR ---
EXAMINATION TYPE: XR humerus RT DATE OF EXAM: 02/14/2020 COMPARISON: Right shoulder HISTORY: Fall, pain TECHNIQUE: 2 view right humerus FINDINGS: The dislocated humeral head from the glenoid is again evident. No acute fractures the humer us are evident. IMPRESSION: 1. Dislocation humeral head. 2. Follow-up exams can be performed 7-10 days from acute trauma for continued pain.
[2020-02-14] MEDS ORDERED: ETOMIDATE 2 MG/ML 10 ML VIAL IVP STA (19:29)
[2020-02-14 20:33] VITALS: RESP 17
[2020-02-14] MEDS ORDERED: ACET/COD 300 MG/30 MG STARTER PACK 6 TAB BTL PO STA (20:35)
--- NOTE | 2020-02-14 20:43 | XR ---
EXAMINATION TYPE: XR shoulder limited RT DATE OF EXAM: 02/14/2020 COMPARISON: Shoulder and humerus earlier in the day HISTORY: Dislocation TECHNIQUE: Post reduction FINDINGS: Humeral head articulates with the glenoid on this single AP view. The acromioclavicular jens ction is normal. No fractures are identified on this image. There may be some slight infiltrate throughout the right lung. Clinical correlation recommended. IMPRESSION: 1. Reduction of previous right shoulder dislocation. No acute fractures are evident. 2. Mild infiltrate may be within the right lung. Clinical correlation recommended.
[2020-02-14 20:50] VITALS: BP 128/54; PULSE 55
[2020-02-14] MEDS ORDERED: ONDANSETRON 4 MG/2 ML VIAL IVP STA (20:56)
== END 2020-02-14 21:20 | disposition home or self-care (01) ==
LOC: EC 18:21
DX: S43.014A Anterior dislocation of right humerus, initial encounter (principal); S43.034A Inferior dislocation of right humerus, initial encounter; S82.64XA Nondisplaced fracture of lateral malleolus of right fibula, initial encounter for closed fracture; I10 Essential (primary) hypertension; E78.5 Hyperlipidemia, unspecified; Z79.899 Other long term (current) drug therapy; Z88.0 Allergy status to penicillin; Z88.2 Allergy status to sulfonamides; Z87.891 Personal history of nicotine dependence; W01.0XXA Fall on same level from slipping, tripping and stumbling without subsequent striking against object, initial encounter
CPT/HCPCS: 73020; 73030; 73060; 73610; 99283; 23650; 29515; 99152; 99153; 96374; J2405

== ENCOUNTER 2020-02-22 10:17 | Emergency (ER) | payer MEDICARE, BC ==
[2020-02-22 10:35] VITALS: TEMP 97.3
--- NOTE | 2020-02-22 10:53 | ED ---
Upper Extremity HPI - General Chief Complaint: Extremity Injury, Upper Stated Complaint: R shoulder pain Time Seen by Provider: 02/22/20 10:40 Source: patient Mode of arrival: ambulatory Limitations: no limitations - History of Present Illness Initial Comments: This is a 79-year-old female who presents with complaints of increasing right shoulder pain. She was here at the end of January and did have a subluxation was reduced also the same time she was diagnosed with a right foot fracture. She states she does have an orthopedic boot and has seen orthopedics. She is scheduled to see them again at the end of February. Patient does complain of shoulder pain she states she decided that were the boot today and was comfortable. She denies any new injury however. MD Complaint: Injury to:: right, shoulder - Related Data Home Medications Medication Instructions Recorded Confirmed Acetaminophen Tab [Tylenol Tab] 325 - 650 mg PO Q6H PRN 07/04/17 04/21/18 Atorvastatin [Lipitor] 10 mg PO DAILY 07/04/17 04/21/18 Dicyclomine [Bentyl] 10 mg PO BID PRN 07/04/17 04/21/18 Metoprolol Tartrate [Lopressor] 50 mg PO BID 07/04/17 04/21/18 amLODIPine BESYLATE/BENAZEPRIL 1 cap PO DAILY 07/04/17 04/21/18 [Lotrel 5-20 mg Capsule] Ranitidine HCl [Zantac] 150 mg PO BID 04/17/18 04/21/18 Previous Rx's Medication Instructions Recorded Ibuprofen [Motrin] 600 mg PO Q6HR PRN #20 tab 02/22/20 Allergies Allergy/AdvReac Type Severity Reaction Status Date / Time Penicillins Allergy Swelling Verified 02/22/20 10:35 Sulfa (Sulfonamide Allergy Swelling Verified 02/22/20 10:35 Antibiotics) Review of Systems ROS Statement: Those systems with pertinent positive or pertinent negative responses have been documented in the HPI. ROS Other: All systems not noted in ROS Statement are negative. Past Medical History Past Medical History: Hyperlipidemia, Hypertension Additional Past Medical History / Comment(s): FX LEFT WRIST, IN HALF CAST, colitis, History of Any Multi-Drug Resistant Organisms: ESBL Date of last positivie culture/infection: 09/30/19 ESBL E. coli MDRO Source:: Urine Past Surgical History: Appendectomy, Cholecystectomy, Tubal Ligation Additional Past Surgical History / Comment(s): colonoscopy Past Anesthesia/Blood Transfusion Reactions: No Reported Reaction Past Psychological History: No Psychological Hx Reported Smoking Status: Former smoker Past Alcohol Use History: None Reported Past Drug Use History: None Reported General Exam - General Exam Comments Initial Comments: This is a well-developed well-nourished awake alert oriented x 3 female Limitations: no limitations General appearance: alert, anxious Head exam: Present: atraumatic, normocephalic, normal inspection Eye exam: Present: normal appearance, PERRL, EOMI. Absent: scleral icterus, conjunctival injection, periorbital swelling ENT exam: Present: normal exam, mucous membranes moist Neck exam: Present: normal inspection. Absent: tenderness, meningismus, lymphadenopathy Respiratory exam: Present: normal lung sounds bilaterally. Absent: respiratory distress, wheezes, rales, rhonchi, stridor Cardiovascular Exam: Present: regular rate, normal rhythm, normal heart sounds. Absent: systolic murmur, diastolic murmur, rubs, gallop, clicks GI/Abdominal exam: Absent: distended, tenderness, guarding, rebound, rigid Extremities exam: Present: normal inspection, full ROM, tenderness (There is a right shoulder no evidence of subluxation or step-off or crepitation at this time patient does have a sling and place this in the right foot does demonstrate evidence of some ecchymosis no evidence of new injury however.), normal capillary refill. Absent: pedal edema, joint swelling, calf tenderness Back exam: Present: normal inspection Neurological exam: Present: alert, oriented X3, CN II-XII intact Psychiatric exam: Present: normal affect, anxious Skin exam: Present: warm, dry, intact, normal color. Absent: rash Course Vital Signs 02/22/20 10:32 Temperature 97.3 F L Pulse Rate 68 Respiratory 20 Rate Blood Pressure 145/77 O2 Sat by Pulse 99 Oximetry Medical Decision Making - Medical Decision Making I did discuss findings with the patient. Patient does have complaints of right shoulder pain she states it occurred is while she tried to reach for something. The x-ray is unremarkable for any evidence of fracture or subluxation. Is likely residual muscle strain. I did recommend the patient use warm compresses as well as a short course of NSAIDs. She states she is able tolerate this. She does have follow-up with orthopedics she is to keep this. - Radiology Data Radiology results: report reviewed (I did review the imaging and report no acute findings.), image reviewed Disposition Clinical Impression: Strain of shoulder Disposition: HOME SELF-CARE Condition: Good Instructions (If sedation given, give patient instructions): Rotator Cuff Injury (ED) Additional Instructions: Medication prescription sent to your preferred pharmacy Prescriptions: Ibuprofen [Motrin] 600 mg PO Q6HR PRN #20 tab PRN Reason: Pain Is patient prescribed a controlled substance at d/c from ED?: No Referrals: Jhonathan Pederson MD [Primary Care Provider] - 1-2 days
--- NOTE | 2020-02-22 11:10 | XR ---
EXAMINATION TYPE: XR shoulder complete RT DATE OF EXAM: 02/22/2020 CLINICAL HISTORY: Status post right shoulder dislocation. Right shoulder continued pain. TECHNIQUE: Three views of the right shoulder are obtained. COMPARISON: None. FINDINGS: There is diffuse osseous demineralization. There is no acute fracture/dislocation evident i n the right shoulder. The acromioclavicular and glenohumeral joint spaces appear aligned with modera te acromioclavicular arthropathy demonstrated as capsular hypertrophy and marginal osteophytes. The visualized ribs are intact and unremarkable. IMPRESSION: No fracture or repeat dislocation seen in the right shoulder.
[2020-02-22 12:03] VITALS: BP 113/92; PULSE 58; RESP 16
== END 2020-02-22 12:03 | disposition home or self-care (01) ==
LOC: EC 10:17
DX: S46.911A Strain of unspecified muscle, fascia and tendon at shoulder and upper arm level, right arm, initial encounter (principal); E78.5 Hyperlipidemia, unspecified; I10 Essential (primary) hypertension; Z87.891 Personal history of nicotine dependence; Z79.899 Other long term (current) drug therapy; Z88.0 Allergy status to penicillin; Z88.2 Allergy status to sulfonamides; W19.XXXA Unspecified fall, initial encounter; Y92.009 Unspecified place in unspecified non-institutional (private) residence as the place of occurrence of the external cause
CPT/HCPCS: 99283

== ENCOUNTER → 2020-04-08 | Outpatient (CLI) | payer MEDICARE, BC ==
--- NOTE | 2020-04-12 08:22 | MM ---
Reason for exam: screening (asymptomatic). Last mammogram was performed 1 year and 3 months ago. History: Patient is postmenopausal. Family history of premenopausal breast cancer in sister at age 57. Physical Findings: A clinical breast exam by your physician is recommended on an annual basis and results should be correlated with mammographic findings. MG Screening Mammo w CAD Bilateral CC and MLO view(s) were taken. Prior study comparison: December 29, 2018, bilateral MG screening mammo w CAD. December 25, 2017, bilateral MG screening mammo w CAD. There are scattered fibroglandular densities. There is chronic nodularity in the left breast. No significant changes when compared with prior studies. ASSESSMENT: Benign, BI-RAD 2 RECOMMENDATION: Routine screening mammogram of both breasts in 1 year.
== END | disposition home or self-care (01) ==
LOC: RADMAMWWP 09:11
PROVIDERS: ATTEND Internal Medicine
DX: Z12.31 Encounter for screening mammogram for malignant neoplasm of breast (principal)
CPT/HCPCS: 77067

== ENCOUNTER 2021-08-02 11:24 | Observation (INO) | payer MEDICARE, BC ==
[2021-08-01 08:53] VITALS: BMI 25.6
[~2021-08-02 11:24] MED LIST changes: +CLINDAMYCIN 900 MG in DEXTROSE 5% IN WATER 50 ML IVPB PRN; -DEXAMETHASONE SOD PHOSPHATE 10 MG/ML 1 ML VIAL IV ONE; -LACTATED RINGERS 1,000 ML IV SCH; -MIDAZOLAM 2 MG/2 ML VIAL IV PRN; -ONDANSETRON 4 MG/2 ML VIAL IVP ONE; -SCOPOLAMINE 1.5MG/72HR PATCH TRANSDERM ONE; -ceFAZolin IN SWFI 2 GM/20 ML SYRINGE IVP ONE; -fentaNYL (PF) 50 MCG/ML 2 ML AMP IV PRN
[2021-08-02] MEDS ORDERED: ONDANSETRON 4 MG/2 ML VIAL IVP ONE (11:47)
[2021-08-02] MEDS ORDERED: DEXAMETHASONE SOD PHOSPHATE 4 MG/ML 1 ML VIAL IV ONE (11:47)
[2021-08-02] MEDS ORDERED: LIDOCAINE 1% (10MG/ML) FOR IV START INTRADERMA PRN (11:47)
[2021-08-02] MEDS ORDERED: MIDAZOLAM 2 MG/2 ML VIAL IV PRN (11:47)
[2021-08-02] MEDS ORDERED: LACTATED RINGERS 1,000 ML IV SCH (11:47)
[2021-08-02] MEDS ORDERED: MIDAZOLAM 2 MG/2 ML VIAL IVP ONE (12:36)
[2021-08-02] MEDS ORDERED: LIDOCAINE 1% INJ 10MG/ML (20 ML MDV) ONE (12:57)
[2021-08-02] MEDS ORDERED: SUCCINYLCHOLINE CHLORIDE 100 MG/5 ML SYR IV ONE (12:57)
[2021-08-02] MEDS ORDERED: fentaNYL (PF) 50 MCG/ML 2 ML AMP ONE (12:57)
[2021-08-02] MEDS ORDERED: GLYCOPYRROLATE 0.2 MG/ML 2 ML VIAL ONE (12:57)
[2021-08-02] MEDS ORDERED: PROPOFOL 10 MG/ML 20 ML VIAL IV ONE (12:57)
[2021-08-02] MEDS ORDERED: ROCURONIUM 10 MG/ML (5 ML VIAL) IV ONE (12:57)
[2021-08-02] MEDS ORDERED: NEOSTIGMINE 1 MG/ML 10 ML VIAL ONE (12:57)
[2021-08-02] MEDS ORDERED: ROPIVACAINE 5 MG/ML 30 ML VIAL ONE (12:57)
[2021-08-02] MEDS ORDERED: ePHEDrine SULFATE/0.9% NACL/PF 50 MG/5 ML SYRINGE IV ONE (12:57)
--- NOTE | 2021-08-02 13:04 | P.ANPRN ---
Procedure Note - Anesthesia - Nerve Block Performed Left Adductor Canal Time Out Performed: Yes (12:35) Date of Procedure: 08/02/21 Procedure Start Time: 12:35 Procedure Stop Time: 12:45 Location of Patient: PreOp Indication: Requested by Surgeon (Dr Hess) Sedation Type: Sedate with meaningful contact maintained Preparation: Sterile Prep Position: Supine Catheter: None Needle Types: Pajunk Needle Gauge: 21 Ultrasound used to visualize needle placement: Yes Ultrasound used to observe medication spread: Yes Injectate: 0.5% Ropivacaine (see comment for volume) (15cc) Blood Aspirated: No Pain Paresthesia on Injection Noted: No Resistance on Injection: Normal Image Stored and Saved: Yes Events: Uneventful and Well Tolerated
--- NOTE | 2021-08-02 13:05 | P.ANPRN ---
Procedure Note - Anesthesia - Nerve Block Performed Left Popliteal Time Out Performed: Yes Date of Procedure: 08/02/21 Procedure Start Time: 12:46 Procedure Stop Time: 12:57 Location of Patient: PreOp Indication: Acute Post-Operative Pain, Requested by Surgeon (Dr Hess) Sedation Type: Sedate with meaningful contact maintained Preparation: Sterile Prep Position: Right Lateral Catheter: None Needle Types: Pajunk Needle Gauge: 21 Ultrasound used to visualize needle placement: Yes Ultrasound used to observe medication spread: Yes Injectate: 0.5% Ropivacaine (see comment for volume) (15cc) Blood Aspirated: No Pain Paresthesia on Injection Noted: No Resistance on Injection: Normal Image Stored and Saved: Yes Events: Uneventful and Well Tolerated
--- NOTE | 2021-08-02 14:12 | XR ---
EXAMINATION TYPE: XR ankle complete LT DATE OF EXAM: 08/02/2021 COMPARISON: NONE HISTORY: ORIF left ankle TECHNIQUE: 5 images submitted. FINDINGS: 37 seconds of fluoroscopy provided. Images demonstrate postsurgical change in near anatomic alignment. IMPRESSION: Postoperative change
--- NOTE | 2021-08-02 14:13 | FL ---
EXAMINATION TYPE: FL guidance operating room DATE OF EXAM: 08/02/2021 HISTORY: Fluoroscopy time 37 seconds of fluoroscopy provided. IMPRESSION: 1. Fluoroscopy time.
--- NOTE | 2021-08-02 14:22 | P.OP ---
Date of Procedure: 08/02/21 Preoperative Diagnosis: Left bimalleolar equivalent ankle fracture, severe osteopenia Postoperative Diagnosis: Same Procedure(s) Performed: 1. Open reduction and internal fixation of left displaced lateral malleolus fracture 2. Manual application of joint stress by physician for radiography, left ankle 3. Application of short-leg splint by physician, left ankle Anesthesia: jamilah GLEZ Surgeon: Lukasz Hess Bridge Gang Worker #1: Loretta Bansal Estimated Blood Loss (ml): 20 IV fluids (ml): 1,000 Pathology: none sent Condition: stable Disposition: PACU Indications for Procedure: The patient is a very pleasant bruising healthy 80-year-old female who sustained a displaced left lateral malleolus fracture. She presented to my office and we initially attempted nonsurgical treatment with a boot but due to persistent wid ening of the medial clear space and displace the lateral malleolus we decided to go forward with surgery. We discussed the potential risks and complications of surgery including but certainly not limited to skin anesthesia, superficial infection, deep infection, delayed wound healing, superficial wound necrosis, damage to local blood vessels or nerves, nonunion, malunion, hardware failure, posttraumatic arthritis, DVT, PE, other medical complications, and inability to regain preinjury level of function, the satisfaction of surgery, systematic hardware, need for further surgery, possible loss of life or limb. The patient voiced understanding these potential complications and also acknowledges that other less common complications are possible. She provided both her verbal and written consent to go forward with surgery. Operative Findings: Severe osteopenia Description of Procedure: The patient was identified in preoperative holding and the correct left leg was marked my initials. I reviewed the consent form with the patient and all of her questions were answered. A block was given by anesthesia. The patient was then brought back to the operating room. She was given preoperative antibiotics and a general anesthetic was administered. A tourniquet was applied the proximal aspect of the left leg. All bony prominences were well-padded. A bone foam ramp was placed in the left leg. A bump was placed internally rotating the leg to facilitate imaging and exposure. The left leg was then prepped and draped in the standard sterile fashion. Prior to starting surgery timeout was performed identifying the correct patient, operative extremity, and procedure. The patient's leg was then elevated, exsanguinated with an Esmarch bandage, and the tourniquet was inflated to 250 mmHg. I began by outlining a straight lateral incision to the distal fibula. Skin incision and draped a scalpel and dissection was carried down To subcu tennis tissue with tenotomy scissors. The periosteum over the fibula distally in the fascia over the peroneal muscles proximally was incised longitudinally in line with the skin incision. I then sharply elevated the periosteum and early consolidating callus of the fracture site. The fracture site was cleaned to allow a reduction. The patient's bone was found to be extremely soft particula rly in the distal fragment. There is a displaced fracture off the anterior aspect the distal fragment. The fracture was pulled out to length and gently clamped. Due to the patient's extremely poor bone quality I was unable to place a lag screw across the fracture for fear of creating a fracture line. A precontoured distal fibular locking plate is held over the lateral aspect of the fibula and verified with fluoroscopy. 3 nonlocking 3.5 cortical screws were placed proximal to the fracture. Four locking 3.5 mm screws were placed distally. Due to the patient's poor bone quality 2 tetra cortical syndesmotic screws were placed to augment fixation. Final fluoroscopic images were taken including a true mortise and lateral view. A manual external rotation stress x- ray showed no widening of the medial clear space or incisura. I interpreted this as a stable ankle construct. The patient's wound was then thoroughly irrigated and closed in layers. A sterile dressing followed by well-padded bulky Oliveira splint was applied with the ankle in neutral. The patient was then awoken from her anesthetic, transferred to a [place], and brought to recovery having tolerated the procedure well. Loretta Perry PA-C was required as a skilled it administrative assistant to the procedure. Plan the patient is going to be admitted overnight for observation and for discharge planning. The patient lives alone and will likely need discharge to rehab. She is to remain strictly nonweightbearing. Operative extremity. She'll get 2 doses of postoperative antibiotics. I will treat her with aspirin 81 mg twice a day for DVT prophylaxis as she has low risk for DVT.
[2021-08-02] MEDS ORDERED: hydrOXYzine pamoate 25 MG CAP PO PRN (14:36)
[2021-08-02] MEDS ORDERED: SENNOSIDES-DOCUSATE SODIUM 1 EACH TAB PO PRN (14:36)
[2021-08-02] MEDS ORDERED: HYDROmorphone 0.5 MG/0.5 ML SYRINGE IVP PRN (14:36)
[2021-08-02] MEDS ORDERED: ONDANSETRON 4 MG/2 ML VIAL IVP PRN (14:36)
[2021-08-02] MEDS ORDERED: HYDROmorphone 1 MG/ML 1 ML SYRINGE IVP PRN (14:36)
[2021-08-02] MEDS ORDERED: HYDROcodone/APAP 5-325MG 1 EACH TAB PO PRN ×2 (14:36)
[2021-08-02] MEDS ORDERED: HYDROmorphone 0.2 MG/1 ML SYRINGE IVP PRN (14:36)
[2021-08-02] MEDS: HYDROmorphone 0.5 MG/0.5 ML SYRINGE IVP PRN ×2 (14:43→14:59)
[2021-08-02] MEDS ORDERED: diphenhydrAMINE 50 MG/ML 1 ML VIAL IVP ONE (15:02)
[2021-08-02] MEDS ORDERED: diphenhydrAMINE 50 MG/ML 1 ML VIAL ONE (15:03)
[2021-08-02] MEDS ORDERED: LACTATED RINGERS 1,000 ML IV ONE (15:48)
--- NOTE | 2021-08-02 17:04 | P.CONS ---
<Trae Cha - Last Filed: 08/02/21 16:57> History of Present Illness - Reason for Consult Consult date: 08/02/21 Requesting physician: Lukasz Hess - History of Present Illness History of Presenting Illness: Patient is a very pleasant 80-year-old female with a past medical history of hypertension, hyperlipidemia, and GERD. She sustained a displaced left lateral malleolus fracture which was initially attempted to be nonsurgically treated outpatient with orthopedic surgeon, but due to reported persistent widening of the medial space and further displacement of the lateral malleolus they decided to go forward with surgical management. Patient currently admitted to orthopedic surgery team under Dr. Hess and is status post ORIF of left displaced lateral malleolus fracture. We have been consulted to provide continued medical management throughout patient's hospitalization. Patient seen and fully evaluated at the bedside. Patient reports postsurgical pain managed at this time. Denies postoperative nausea or vomiting and is tolerating clear liquid diet at this time. Patient denies history of DVTs or PEs. She denies experiencing any headache, lightheadedness, dizziness, chest pain, palpitations, shortness of breath, or experiencing any weakness/numbness/tingling in her extremities. Left lower extremity in a postoperative splint and elevated on pillow at this time. Review of systems: Pertinent positives and negatives as discussed in HPI, a complete review of systems was performed and all other systems are negative. Physical exam: Vital signs reviewed and stable. General: Nontoxic, no distress and appears stated age. Derm: Skin warm and dry, normal coloration for ethnicity. Head: Atraumatic, normocephalic and symmetric. Eyes: EOMs intact, no lid lag, and anicteric sclera Mouth: no lip lesions, mucus membranes moist Cardiovascular: regular rate and rhythm with normal S1S2, no murmur, positive posterior tibial pulses bilaterally, and cap refill < 2 seconds. Lungs: Respirations even, regular, and unlabored on room air. Lungs CTA bilaterally, no rhonchi, no rales, no wheezing, and no accessory muscle usage. Abdominal: soft, nontender to palpation, no guarding, no appreciable organomegaly Ext: ROM intact. No gross muscle atrophy, no edema, no contractures. Movement and sensation of left toes intact. Postsurgical splint in place to left lower extremity. Neuro: Speech clear, face symmetrical and CN II-XII grossly intact with no noted focal neuro deficits Psych: Alert and oriented to person, place, time, and situation. Appropriate and pleasant affect. Assessment and Plan of Care: Status post ORIF of left displaced lateral malleolus fracture -Pain management, DVT prophylaxis, weightbearing, wound care and PT/OT per primary admitting orthopedic surgery team. -DVT prophylaxis with aspirin at this time. Hypertension Monitor vital signs and continue daily medication regimen with lisinopril and metoprolol. Hyperlipidemia Continue daily medication regimen with atorvastatin. GERD Continue daily medication regimen with Pepcid 20 mg daily. Thank you for allowing us to participate in the care of this pleasant patient. Do not hesitate to contact us with questions. Someone can be reached from the [facility] hospitalist group all hours of the day at [phone] or via [employer]. Past Medical History Past Medical History: Hyperlipidemia, Hypertension Additional Past Medical History / Comment(s): FX LEFT WRIST, IN HALF CAST now healed colitis, fx left ankle wearing ankle. current UTI History of Any Multi-Drug Resistant Organisms: ESBL Year Discovered:: 06/05/21 ESBL E. coli MDRO Source:: Urine Past Surgical History: Appendectomy, Cholecystectomy, Tubal Ligation Additional Past Surgical History / Comment(s): colonoscopy. surgery lt wrist with plate Past Anesthesia/Blood Transfusion Reactions: No Reported Reaction Smoking Status: Former smoker - Past Family History Brother(s) Family Medical History: Cancer Sister(s) Family Medical History: Cancer Medications and Allergies Home Medications Medication Instructions Recorded Confirmed Type Acetaminophen Tab [Tylenol Tab] 325 - 650 mg PO Q6H PRN 07/04/17 08/02/21 History Atorvastatin [Lipitor] 10 mg PO HS 07/04/17 08/02/21 History Dicyclomine [Bentyl] 10 mg PO BID PRN 07/04/17 08/02/21 History Metoprolol Tartrate [Lopressor] 50 mg PO BID 07/04/17 08/02/21 History amLODIPine BESYLATE/BENAZEPRIL 1 cap PO DAILY 07/04/17 08/02/21 History [Lotrel 5-20 mg Capsule] Famotidine [Pepcid] 20 mg PO BID 08/01/21 08/02/21 History Allergies Allergy/AdvReac Type Severity Reaction Status Date / Time Penicillins Allergy Swelling Verified 08/02/21 12:00 Sulfa (Sulfonamide Allergy Swelling Verified 08/02/21 12:00 Antibiotics) Physical Exam Vitals: Vital Signs Temp Pulse Pulse Resp BP Pulse Ox 08/02/21 16:15 97.7 F 69 16 147/76 98 08/02/21 15:31 57 L 14 120/55 100 08/02/21 15:17 70 18 126/60 97 08/02/21 15:01 70 18 156/99 100 08/02/21 14:46 64 18 148/71 98 08/02/21 14:34 97.5 F L 76 16 150/77 100 08/02/21 12:46 57 L 16 127/60 98 08/02/21 12:04 97.9 F 50 L 16 155/70 98 Intake and Output 08/02/21 08/02/21 08/02/21 06:59 14:59 22:59 Intake Total 856 200 Output Total 25 Balance 831 200 Intake: IV 856 200 Output: Estimated Blood Loss 25 Other: Weight 63.5 kg <Joni Tan - Last Filed: 08/02/21 18:27> History of Present Illness - History of Present Illness Patient seen and evaluated by me independently. Patient was also seen by DAYANA, the original author of this note. I am in agreement with the subjective, physical exam, and assessment and plan as documented with the addition/changes of my exam and assessment below. Gen: awake, alert HEENT: normocephalic, atraumatic, good hearing acuity, moist mucous membranes Resp: good air exchange, breathing comfortably with no accessory muscle use CVS: good distal perfusion x 4, GI: soft, NTTP, ND : no SPT, no CVAT, chairez catheter not present MSK: no pitting edema, no clubbing Neuro: non-focal, moving all extremities Psych: cooperative, euthymic mood Plan: Agree with the plan as stated above with no changes Physical Exam Osteopathic Statement: *. No significant issues noted on an osteopathic structural exam other than those noted in the History and Physical/Consult. Vitals: Vital Signs Temp Pulse Pulse Resp BP Pulse Ox 08/02/21 17:45 73 151/78 94 L 08/02/21 17:30 74 168/82 98 08/02/21 17:15 74 161/84 96 08/02/21 17:00 73 157/77 96 08/02/21 16:45 67 167/80 96 08/02/21 16:30 66 16 166/81 99 08/02/21 16:15 97.7 F 69 16 147/76 98 08/02/21 15:31 57 L 14 120/55 100 08/02/21 15:17 70 18 126/60 97 08/02/21 15:01 70 18 156/99 100 08/02/21 14:46 64 18 148/71 98 08/02/21 14:34 97.5 F L 76 16 150/77 100 08/02/21 12:46 57 L 16 127/60 98 08/02/21 12:04 97.9 F 50 L 16 155/70 98 Intake and Output 08/02/21 08/02/21 08/02/21 06:59 14:59 22:59 Intake Total 856 200 Output Total 25 200 Balance 831 0 Intake: IV 856 200 Output: Urine 200 Estimated Blood Loss 25 Other: Weight 63.5 kg 63.5 kg
[2021-08-02] MEDS: FAMOTIDINE 20 MG TAB PO SCH (18:25)
[2021-08-02] MEDS: LACTATED RINGERS 1,000 ML IV SCH (18:25)
[2021-08-02] MEDS: METOPROLOL TARTRATE 50 MG TAB PO SCH (20:45)
[2021-08-02] MEDS: ASPIRIN 81 MG PO SCH (20:45)
[2021-08-02] MEDS: ATORVASTATIN 10 MG TAB PO SCH (20:45)
[2021-08-02] MEDS: CLINDAMYCIN 900 MG in DEXTROSE 5% IN WATER 50 ML IVPB SCH ×2 (20:46)
[2021-08-02] MEDS ORDERED: FAMOTIDINE 20 MG TAB PO SCH (21:00)
[2021-08-03] MEDS: LACTATED RINGERS 1,000 ML IV SCH ×3 (02:19→21:15)
[2021-08-03] MEDS: CLINDAMYCIN 900 MG in DEXTROSE 5% IN WATER 50 ML IVPB SCH ×2 (05:00)
[2021-08-03] MEDS: METOPROLOL TARTRATE 50 MG TAB PO SCH ×2 (07:53→21:14)
[2021-08-03] MEDS: FAMOTIDINE 20 MG TAB PO SCH (07:53)
[2021-08-03] MEDS: lisinopriL 20 MG TAB PO SCH (07:53)
[2021-08-03] MEDS: ASPIRIN 81 MG PO SCH ×2 (07:53→21:14)
[2021-08-03] MEDS: amLODIPine 5 MG TAB PO SCH (07:53)
[2021-08-03 08:42] LABS: Basophils % (A) 0 %; Eosinophils % (A) 1 %; HCT 42.4 % (34.0-46.0); HGB 13.8 gm/dL (11.4-16.0); Lymphocytes # (A) 0.4 k/uL (1.0-4.8); Lymphocytes % (A) 6 %; MCH 32.6 pg (25.0-35.0); MCHC 32.5 g/dL (31.0-37.0); MCV 100.2 fL (80.0-100.0); Mean Platelet Volume 9.3; Monocytes # (A) 0.1 k/uL (0-1.0); Monocytes % (A) 2 %; Neutrophils # (A) 5.4 k/uL (1.3-7.7); Neutrophils % (A) 90 %; Platelet Count 159 k/uL (150-450); RBC 4.23 m/uL (3.80-5.40); RDW 12.5 % (11.5-15.5)
[2021-08-03 12:15] LABS: Appearance,Urine Turbid (Clear); Bacteria,Urine Many /hpf; Bilirubin,Urine Negative (Negative); Blood,Urine Moderate (Negative); Color,Urine Red; Glucose,Urine (UA) Negative (Negative); Hyaline Casts,Urine 57 /lpf (0-2); Ketones,Urine Negative (Negative); Leukocyte Esterase,Urine Large (Negative); Nitrite,Urine Negative (Negative); Protein,Urine 3+ (Negative); RBC,Urine >182 /hpf (0-5); Urobilinogen,Urine <2.0 mg/dL (<2.0); WBC,Urine >182 /hpf (0-5)
[2021-08-03 12:19] LABS: Specific Gravity,Urine 1.019 (1.001-1.035)
--- NOTE | 2021-08-03 15:13 | P.PN ---
<Trae Cha - Last Filed: 08/03/21 15:06> Subjective Progress Note Date: 08/03/21 History of Presenting Illness: Patient is a very pleasant 80-year-old female with a past medical history of hypertension, hyperlipidemia, and GERD. She sustained a displaced left lateral malleolus fracture which was initially attempted to be nonsurgically treated outpatient with orthopedic surgeon, but due to reported persistent widening of the medial space and further displacement of the lateral malleolus they decided to go forward with surgical management. Patient currently admitted to orthopedic surgery team under Dr. Hess and is status post ORIF of left displaced lateral malleolus fracture. We have been consulted to provide continued medical management throughout patient's hospitalization. Physical exam: Patient seen and fully evaluated at the bedside this morning. She is doing well. She was sitting up in chair with legs elevated. Postoperative splint remains in place to left lower extremity. Patient continues to have movement and sensation of left toes. She reports control of postoperative pain. Patient showing no signs of acute distress this morning and denies having any headache, lightheadedness, dizziness, chest pain, palpitations, shortness of breath, abdominal pain, nausea, vomiting, or experiencing any focal numbness/tingling/weakness. Urinalysis was obtained positive for infection and patient started on IV antibiotic Rocephin at this time. Patient likely to be transitioned over to oral antibiotic cephalexin upon discharge. Urine culture pending. Orthopedic tentative reported plans for likely discharge tomorrow to rehab at [facility]. Vital signs reviewed and stable. General: Nontoxic, no distress and appears stated age. Derm: Skin warm and dry, normal coloration for ethnicity. Head: Atraumatic, normocephalic and symmetric. Eyes: EOMs intact, no lid lag, and anicteric sclera Mouth: no lip lesions, mucus membranes moist Cardiovascular: regular rate and rhythm with normal S1S2, no murmur, positive posterior tibial pulses bilaterally, and cap refill < 2 seconds. Lungs: Respirations even, regular, and unlabored on room air. Lungs CTA bilaterally, no rhonchi, no rales, no wheezing, and no accessory muscle usage. Abdominal: soft, nontender to palpation, no guarding, no appreciable o rganomegaly Ext: ROM intact. No gross muscle atrophy, no edema, no contractures. Movement and sensation of left toes intact. Postsurgical splint in place to left lower extremity. Neuro: Speech clear, face symmetrical and CN II-XII grossly intact with no noted focal neuro deficits Psych: Alert and oriented to person, place, time, and situation. Appropriate and pleasant affect. Assessment and Plan of Care: UTI -Urinalysis turbid positive for blood, leukocytes, greater than 182 RBCs and greater than 182 WBCs. -Rocephin 1 g every 24 hours. -Follow up on urine culture. -Bladder management Status post ORIF of left displaced lateral malleolus fracture, postoperative day 1 -Pain management, DVT prophylaxis, weightbearing, wound care and PT/OT per primary admitting orthopedic surgery team. -DVT prophylaxis with aspirin twice a day at this time. Hypertension Monitor vital signs and continue daily medication regimen with lisinopril and metoprolol. Hyperlipidemia Continue daily medication regimen with atorvastatin. GERD Continue daily medication regimen with Pepcid 20 mg daily. Thank you for allowing us to participate in the care of this pleasant patient. Do not hesitate to contact us with questions. Someone can be reached from the [facility] hospitalist group all hours of the day at [phone] or via [employer] Objective - Vital Signs Vital signs: Vital Signs Temp 97.9 F 08/03/21 07:47 Pulse 78 08/03/21 07:47 Resp 16 08/03/21 07:47 BP 121/64 08/03/21 07:47 Pulse Ox 96 08/03/21 07:47 Intake & Output 08/02/21 08/03/21 08/03/21 18:59 06:59 18:59 Intake Total 1056 Output Total 225 Balance 831 Weight 63.5 kg Intake: IV 1056 Output: Urine 200 Estimated Blood Loss 25 Other: Voiding Method Diaper Diaper External Catheter External Catheter # Voids 3 - Labs CBC & Chem 7: 08/03/21 07:23 Labs: Abnormal Lab Results - Last 24 Hours (Table) 08/03/21 Range/Units 07:23 MCV 100.2 H (80.0-100.0) fL <Joni Tan - Last Filed: 08/03/21 18:45> Subjective I reviewed the documentation as provided by the DAYANA above, who is the original author of this note. I agree with the documented assessment and plan, with the following changes: none Objective - Vital Signs Vital signs: Vital Signs Temp 97.5 F L 08/03/21 14:00 Pulse 69 08/03/21 14:00 Resp 16 08/03/21 14:00 BP 100/66 08/03/21 14:00 Pulse Ox 96 08/03/21 14:00 Intake & Output 08/02/21 08/03/21 08/03/21 18:59 06:59 18:59 Intake Total 1056 236 Output Total 225 257 Balance 831 -21 Weight 63.5 kg Intake: IV 1056 Oral 236 Output: Urine 200 200 Post Void Residual 57 Estimated Blood Loss 25 Other: Voiding Method Diaper Diaper External Catheter External Catheter # Voids 3 - Labs CBC & Chem 7: 08/03/21 07:23 Labs: Abnormal Lab Results - Last 24 Hours (Table) 08/03/21 08/03/21 Range/Units 07:23 11:15 MCV 100.2 H (80.0-100.0) fL Lymphocytes # 0.4 L (1.0-4.8) k/uL Urine Appearance Turbid H (Clear) Urine Protein 3+ H (Negative) Urine Blood Moderate H (Negative) Ur Leukocyte Esterase Large H (Negative) Urine RBC >182 H (0-5) /hpf Urine WBC >182 H (0-5) /hpf Urine WBC Clumps Many H (None) /hpf Urine Bacteria Many H (None) /hpf Hyaline Casts 57 H (0-2) /lpf
--- NOTE | 2021-08-03 18:31 | P.PN ---
Subjective Progress Note Date: 08/03/21 This patient is an 80- year old female who is status-post open reduction and internal fixation of left displaced lateral malleolus fracture on 08/02/[address] Hess. Today is post-operative day #1. Patient is seen and examined bedside. She states the pain in her left ankle is well-controlled at this time. She has not yet been up with physical therapy. She is tolerating her diet well. She denies chest pain, shortness breath, nausea, vomiting, fevers, chills. No new complaints today. Vital signs stable. Objective - Vital Signs Vital signs: Vital Signs Temp 97.5 F L 08/03/21 14:00 Pulse 69 08/03/21 14:00 Resp 16 08/03/21 14:00 BP 100/66 08/03/21 14:00 Pulse Ox 96 08/03/21 14:00 Intake & Output 08/02/21 08/03/21 08/03/21 18:59 06:59 18:59 Intake Total 1056 236 Output Total 225 257 Balance 831 -21 Weight 63.5 kg Intake: IV 1056 Oral 236 Output: Urine 200 200 Post Void Residual 57 Estimated Blood Loss 25 Other: Voiding Method Diaper Diaper External Catheter External Catheter # Voids 3 - Exam On examination, the patient is lying in bed in no apparent distress. She is alert and orientated x3. On inspection of the left ankle, there is a clean, dry, intact bulky Oliveira splint placed. There is no bleeding or drainage to the splint. The visible portion of the toes are warm and well perfused. No pain with passive range of motion of the toes. She is able to wiggle her toes appro priately. - Labs CBC & Chem 7: 08/03/21 07:23 Labs: Abnormal Lab Results - Last 24 Hours (Table) 08/03/21 08/03/21 Range/Units 07:23 11:15 MCV 100.2 H (80.0-100.0) fL Lymphocytes # 0.4 L (1.0-4.8) k/uL Urine Appearance Turbid H (Clear) Urine Protein 3+ H (Negative) Urine Blood Moderate H (Negative) Ur Leukocyte Esterase Large H (Negative) Urine RBC >182 H (0-5) /hpf Urine WBC >182 H (0-5) /hpf Urine WBC Clumps Many H (None) /hpf Urine Bacteria Many H (None) /hpf Hyaline Casts 57 H (0-2) /lpf Assessment and Plan Assessment: Status-post open reduction and internal fixation of left displaced lateral ma lleolus fracture on 08/02/21. Post-operative day #1. Plan: - Strict nonweightbearing operative leg. Up with assistance, up with a walker. Keep splint intact. - Keep operative leg elevated for swelling control. - Pain management as needed. - Aspirin for DVT prophylaxis. - Postoperative antibiotics complete. - Case management has been consulted for discharge planning. Anticipate discharge to rehab.
[2021-08-03] MEDS: ATORVASTATIN 10 MG TAB PO SCH (21:14)
[2021-08-04] MEDS: ASPIRIN 81 MG PO SCH (07:54)
[2021-08-04] MEDS: amLODIPine 5 MG TAB PO SCH (07:54)
[2021-08-04] MEDS: METOPROLOL TARTRATE 50 MG TAB PO SCH (07:54)
[2021-08-04] MEDS: lisinopriL 20 MG TAB PO SCH (07:54)
[2021-08-04] MEDS: FAMOTIDINE 20 MG TAB PO SCH (07:55)
[2021-08-04 09:04] LABS: HCT 36.8 % (34.0-46.0); MCH 32.1 pg (25.0-35.0); MCHC 32.6 g/dL (31.0-37.0); MCV 98.3 fL (80.0-100.0); Platelet Count 155 k/uL (150-450); RBC 3.74 m/uL (3.80-5.40); RDW 12.3 % (11.5-15.5)
[2021-08-04 09:18] LABS: African American GFR (CKD) 58 (>60 ml/min/1.73 sqM); Anion Gap 8 mmol/L; Blood Urea Nitrogen 49 mg/dL (7-17); Calcium 8.8 mg/dL (8.4-10.2); Carbon Dioxide 24 mmol/L (22-30); Chloride 101 mmol/L (98-107); Glucose 155 mg/dL (74-99); Non-African American GFR(CKD) 50 (>60 ml/min/1.73 sqM); Sodium 133 mmol/L (137-145)
[2021-08-04 09:29] VITALS: BP 110/71; PULSE 84; RESP 19; TEMP 98.4
--- NOTE | 2021-08-04 12:42 | P.DS ---
Providers Date of admission: 08/04/21 08:55 Expected date of discharge: 08/04/21 Attending physician: Lukasz Hess Consults: 08/02/21 14:40 Consult Physician Routine Consulting Provider: Joni Tan Consult Reason/Comments: medical management Do you want consulting provider notified?: Yes Primary care physician: Sudhakar Ferreira MD Hospital Course: This is an 80-year-old female who sustained injury to her left ankle. She was evaluated in the office by Dr. Hess, and she was diagnosed with displaced left lateral malleolus fracture with widening of the medial clear space. Operative treatment was recommended. Patient underwent open reduction and internal fixation of a displaced left lateral malleolus fracture on 08/02/21. Patient was admitted to [facility] following the procedure for rehab placement. Internal medicine was consulted for perioperative medical management. The procedure was performed without complication or sequelae. The patient is doing fairly well postoperatively. Vital signs and labs are stable on postoperative day #2. Patient was examined bedside today. She states the pain is well controlled in her left ankle. Per nursing, she is up to bedside chair with physical therapy today. Patient states she was nauseous this morning, although she was given Zofran and she feels much better at this time. She is eating oatmeal. Patient has no additional complaints this morning. Vital signs stable. On examination, the patient is sitting up in bed in no apparent distress. She is alert and orientated 3. On inspection of the left ankle, there is a clean, dry, intact bulky Oliveira splint intact. The visible portion of the toes are warm and well perfused. No pain with passive range of motion of the toes. Patient is able to wiggle her toes appropriately. The right calf is soft and nontender to palpation. No evidence of DVT. Patient is discharged to rehab in good condition, pending medical clearance. Patient will follow-up with Dr. Hess in the office in 2 weeks. Please see med rec for accurate list of discharge medication Plan - Discharge Summary Discharge Rx Participant: No New Discharge Prescriptions: New HYDROcodone/APAP 5-325MG [[place] 5-325] 1 tab PO Q8HR PRN 7 Days #21 tab PRN Reason: Pain Aspirin 81 mg PO BID 30 Days #60 tab No Action amLODIPine BESYLATE/BENAZEPRIL [Lotrel 5-20 mg Capsule] 1 cap PO DAILY Metoprolol Tartrate [Lopressor] 50 mg PO BID Dicyclomine [Bentyl] 10 mg PO BID PRN PRN Reason: Gi Upset Atorvastatin [Lipitor] 10 mg PO HS Acetaminophen Tab [Tylenol Tab] 325 - 650 mg PO Q6H PRN PRN Reason: Pain Famotidine [Pepcid] 20 mg PO BID Discharge Medication List Acetaminophen Tab [Tylenol Tab] 325 - 650 mg PO Q6H PRN 07/04/17 [History] Atorvastatin [Lipitor] 10 mg PO HS 07/04/17 [History] Dicyclomine [Bentyl] 10 mg PO BID PRN 07/04/17 [History] Metoprolol Tartrate [Lopressor] 50 mg PO BID 07/04/17 [History] amLODIPine BESYLATE/BENAZEPRIL [Lotrel 5-20 mg Capsule] 1 cap PO DAILY 07/04/17 [History] Famotidine [Pepcid] 20 mg PO BID 08/01/21 [History] Aspirin 81 mg PO BID 30 Days #60 tab 08/04/21 [Rx] HYDROcodone/APAP 5-325MG [[place] 5-325] 1 tab PO Q8HR PRN 7 Days #21 tab 08/04/21 [Rx] Follow up Appointment(s)/Referral(s): Lukasz Hess MD [Medical Doctor] - 2 Weeks Activity/Diet/Wound Care/Special Instructions: Strict non-weightbearing operative leg. Up with a walker. Keep bulky Oliveira splint intact. Aspirin for blood clot prevention. Take pain medications as prescribed. Keep operative leg elevated for swelling control. Follow-up in the office in 2 weeks. Call the office with any questions or concerns, Discharge Disposition: TRANSFER TO SNF/ECF
--- NOTE | 2021-08-04 12:54 | P.PN ---
<Trae Cha - Last Filed: 08/04/21 12:41> Subjective Progress Note Date: 08/04/21 History of Presenting Illness: Patient is a very pleasant 80-year-old female with a past medical history of hypertension, hyperlipidemia, and GERD. She sustained a displaced left lateral malleolus fracture which was initially attempted to be nonsurgically treated outpatient with orthopedic surgeon, but due to reported persistent widening of the medial space and further displacement of the lateral malleolus they decided to go forward with surgical management. Patient currently admitted to orthopedic surgery team under Dr. Hess and is status post ORIF of left displaced lateral malleolus fracture. We have been consulted to provide continued medical management throughout patient's hospitalization. Physical exam: Patient seen and fully evaluated at the bedside this morning. She is doing well. She was resting in bed comfortably, reports continued control of her postoperative pain but does report continued weakness. She denies having any headache, lightheadedness, dizziness, chest pain, palpitations, shortness of breath, abdominal pain, nausea, vomiting, or experiencing any focal numbness/tingling/weakness. Patient remains on IV antibiotic Rocephin for treatment of her UTI, orthopedic surgery has arranged for pt's discharge to [facility]. patient placed on oral cephalexin to complete course of antibiotics for UTI. Patient medically stable for discharge at this time.. Vital signs reviewed and stable. General: Nontoxic, no distress and appears stated age. Derm: Skin warm and dry, normal coloration for ethnicity. Head: Atraumatic, normocephalic and symmetric. Eyes: EOMs intact, no lid lag, and anicteric sclera Mouth: no lip lesions, mucus membranes moist Cardiovascular: regular rate and rhythm with normal S1S2, no murmur, positive posterior tibial pulses bilaterally, and cap refill < 2 seconds. Lungs: Respirations even, regular, and unlabored on room air. Lungs CTA bilaterally, no rhonchi, no rales, no wheezing, and no accessory muscle usage. Abdominal: soft, nontender to palpation, no guarding, no appreciable organomegaly Ext: ROM intact. No gross muscle atrophy, no edema, no contractures. Movement and sensation of left toes intact. Postsurgical splint in place to left lower extremity. Neuro: Speech clear, face symmetrical and CN II-XII grossly intact with no noted focal neuro deficits Psych: Alert and oriented to person, place, time, and situation. Appropriate and pleasant affect. Assessment and Plan of Care: UTI -Urinalysis turbid positive for blood, leukocytes, greater than 182 RBCs and greater than 182 WBCs. -Patient received Rocephin 1 g every 24 hours x 2 days and plans for discharge home on cephalexin 500 mg every 12 hours for 5 days.. -Follow up on urine culture, showing no growth to date. -Bladder management, RN reports patient negative for retention showing highest total of 17 mL's postvoid residual. Status post ORIF of left displaced lateral malleolus fracture, postoperative day 3 -Pain management, DVT prophylaxis, weightbearing, wound care and PT/OT per primary admitting orthopedic surgery team. -DVT prophylaxis with aspirin twice a day at this time. Hypertension Monitor vital signs and continue daily medication regimen with lisinopril and metoprolol. Hyperlipidemia Continue daily medication regimen with atorvastatin. GERD Continue daily medication regimen with Pepcid 20 mg daily. Thank you for allowing us to participate in the care of this pleasant patient. Do not hesitate to contact us with questions. Someone can be reached from the [facility] hospitalist group all hours of the day at [phone] or via [employer]. Objective - Vital Signs Vital signs: Vital Signs Temp 99.4 F 08/04/21 02:34 Pulse 74 08/04/21 02:34 Resp 15 08/03/21 20:00 BP 102/56 08/04/21 02:34 Pulse Ox 91 L 08/04/21 02:34 Intake & Output 08/03/21 08/04/21 08/04/21 18:59 06:59 18:59 Intake Total 236 Output Total 257 600 Balance -21 -600 Intake: Oral 236 Output: Urine 200 600 Post Void Residual 57 Other: Voiding Method Diaper Diaper External Catheter External Catheter # Voids 5 # Bowel Movements 0 - Labs CBC & Chem 7: 08/04/21 08:30 08/04/21 08:30 Labs: Abnormal Lab Results - Last 24 Hours (Table) 08/03/21 08/03/21 Range/Units 07:23 11:15 MCV 100.2 H (80.0-100.0) fL Lymphocytes # 0.4 L (1.0-4.8) k/uL Urine Appearance Turbid H (Clear) Urine Protein 3+ H (Negative) Urine Blood Moderate H (Negative) Ur Leukocyte Esterase Large H (Negative) Urine RBC >182 H (0-5) /hpf Urine WBC >182 H (0-5) /hpf Urine WBC Clumps Many H (None) /hpf Urine Bacteria Many H (None) /hpf Hyaline Casts 57 H (0-2) /lpf Microbiology - Last 24 Hours (Table) 08/03/21 11:15 Urine Culture - Preliminary Urine,Clean Catch <Joni Tan - Last Filed: 08/04/21 17:14> Subjective I reviewed the documentation as provided by the DAYANA above, who is the original author of this note. I agree with the documented assessment and plan, with the following changes: None Objective - Vital Signs Vital signs: Vital Signs Temp 98.4 F 08/04/21 08:00 Pulse 84 08/04/21 08:00 Resp 19 08/04/21 08:00 BP 110/71 08/04/21 08:00 Pulse Ox 91 L 08/04/21 08:00 Intake & Output 08/03/21 08/04/21 08/04/21 18:59 06:59 18:59 Intake Total 236 Output Total 257 600 Balance -21 -600 Intake: Oral 236 Output: Urine 200 600 Post Void Residual 57 Other: Voiding Method Diaper Diaper Diaper External Catheter External Catheter External Catheter # Voids 5 # Bowel Movements 0 - Labs CBC & Chem 7: 08/04/21 08:30 08/04/21 08:30 Labs: Abnormal Lab Results - Last 24 Hours (Table) 08/04/21 08/04/21 Range/Units 08:30 08:30 WBC 17.0 H (3.8-10.6) k/uL RBC 3.74 L (3.80-5.40) m/uL Sodium 133 L (137-145) mmol/L BUN 49 H (7-17) mg/dL Glucose 155 H (74-99) mg/dL Microbiology - Last 24 Hours (Table) 08/03/21 11:15 Urine Culture - Preliminary Urine,Clean Catch
== END 2021-08-04 14:28 ==
LOC: OR 11:24 → 4SSUR 13:34 → OR 08-04 08:55
PROVIDERS: ADMIT Orthopaedic Surgery; ATTEND Orthopaedic Surgery
DX: S82.62XA Displaced fracture of lateral malleolus of left fibula, initial encounter for closed fracture (principal); N39.0 Urinary tract infection, site not specified; M85.872 Other specified disorders of bone density and structure, left ankle and foot; I10 Essential (primary) hypertension; E78.5 Hyperlipidemia, unspecified; K21.9 Gastro-esophageal reflux disease without esophagitis; R11.0 Nausea; W18.42XA Slipping, tripping and stumbling without falling due to stepping into hole or opening, initial encounter; Z79.899 Other long term (current) drug therapy; Z88.0 Allergy status to penicillin; Z88.2 Allergy status to sulfonamides; Z90.49 Acquired absence of other specified parts of digestive tract; Z98.51 Tubal ligation status; Z87.891 Personal history of nicotine dependence; Z87.81 Personal history of (healed) traumatic fracture; Z16.12 Extended spectrum beta lactamase (ESBL) resistance; Z16.39 Resistance to other specified antimicrobial drug; Z80.9 Family history of malignant neoplasm, unspecified
CPT/HCPCS: 27792; 97530 ×2; 97161; 97165; 64447; 64445; 76942; 80048; 85025; 85027; 81001; 87086; 87077; 87186; 73610; G0378; C1713; J2250; J1200; J1100; J2710; J2405 ×2; J2001; J0696; J3010; J2795; J0330; J2704; J1170

== ENCOUNTER 2021-10-05 10:45 | Inpatient (IN) | payer MEDICARE, BC ==
--- NOTE | 2021-10-05 11:42 | ED ---
General Adult HPI - General Chief complaint: Weakness Stated complaint: dizziness Time Seen by Provider: 10/05/21 11:11 Source: patient, EMS, RN notes reviewed, old records reviewed Mode of arrival: EMS - History of Present Illness Initial comments: 81-year-old female presenting for evaluation generalized weakness. Patient was recently discharged from rehab facility and has been home for approximately one week. She states that she was admitted for rehabilitation status post left ankle surgery. She states it has been healing well. She denies chest pain or dyspnea. Denies cough or cold symptoms. She states she was treated for drug resistant urinary tract infection. She is concerned this may have returned. No reported fevers. - Related Data Home Medications Medication Instructions Recorded Confirmed Acetaminophen Tab [Tylenol] 325 - 650 mg PO Q6H PRN 07/04/17 08/02/21 Atorvastatin [Lipitor] 10 mg PO HS 07/04/17 08/02/21 Dicyclomine [Bentyl] 10 mg PO BID PRN 07/04/17 08/02/21 Metoprolol Tartrate [Lopressor] 50 mg PO BID 07/04/17 08/02/21 amLODIPine BESYLATE/BENAZEPRIL 1 cap PO DAILY 07/04/17 08/02/21 [Lotrel 5-20 MG] Famotidine [Pepcid] 20 mg PO BID 08/01/21 08/02/21 Previous Rx's Medication Instructions Recorded Aspirin 81 mg PO BID 30 Days #60 tab 08/04/21 Cephalexin [Keflex] 500 mg PO Q12HR 5 Days #10 cap 08/04/21 HYDROcodone/APAP 5-325MG [[place] 1 tab PO Q8HR PRN 7 Days #21 tab 08/04/21 5-325] Allergies Allergy/AdvReac Type Severity Reaction Status Date / Time Penicillins Allergy Swelling Verified 10/05/21 11:06 Sulfa (Sulfonamide Allergy Swelling Verified 10/05/21 11:06 Antibiotics) Review of Systems ROS Statement: Those systems with pertinent positive or pertinent negative responses have been documented in the HPI. ROS Other: All systems not noted in ROS Statement are negative. Past Medical History Past Medical History: Diabetes Mellitus, Hypertension Additional Past Medical History / Comment(s): FX LEFT WRIST, IN HALF CAST, colitis, History of Any Multi-Drug Resistant Organisms: ESBL Date of last positivie culture/infection: 09/17/21 ESBL E. coli MDRO Source:: Urine Past Surgical History: Appendectomy, Cholecystectomy Additional Past Surgical History / Comment(s): colonoscopy ; Left ANkle Past Anesthesia/Blood Transfusion Reactions: No Reported Reaction Past Psychological History: No Psychological Hx Reported Smoking Status: Former smoker - Past Family History Brother(s) Family Medical History: Cancer Sister(s) Family Medical History: Cancer General Exam General appearance: alert, in no apparent distress Head exam: Present: atraumatic, normocephalic Eye exam: Present: normal appearance, PERRL ENT exam: Present: normal exam Neck exam: Present: normal inspection. Absent: tenderness, meningismus Respiratory exam: Present: normal lung sounds bilaterally. Absent: respiratory distress, wheezes Cardiovascular Exam: Present: regular rate, normal rhythm GI/Abdominal exam: Present: soft. Absent: distended, tenderness, guarding Extremities exam: Present: normal inspection, normal capillary refill. Absent: pedal edema Neurological exam: Present: alert, oriented X3, CN II-XII intact. Absent: motor sensory deficit Psychiatric exam: Present: normal affect, normal mood Skin exam: Present: warm, dry, intact. Absent: cyanosis, diaphoretic Course Vital Signs 10/05/21 10/05/21 11:00 14:02 Temperature 98.0 F Pulse Rate 83 98 Respiratory 16 18 Rate Blood Pressure 138/66 118/87 O2 Sat by Pulse 98 94 L Oximetry EKG Findings - EKG Comments: EKG Findings:: EKG: Normal sinus rhythm, rate of 77, SD interval 172, QRS duration 84, QTC 473, no ST segment elevation. Medical Decision Making - Medical Decision Making 81-year-old female generalized weakness. Patient does have recent history of drug resistant UTI. Recent culture shows ESBL E. coli. Urinalysis today is consistent with UTI, urine culture pending. Patient additionally is noted to have a hemoglobin of 5.2. She states she has not had any melanotic stool. No bright red rectal bleeding to her knowledge. She is not on any anticoagulation. This level is repeated in the emergency department and is stable. She is transfused 2 units. She started on proton pump inhibitor. She will be admitted to [facility], case discussed with team. - Lab Data Result diagrams: 10/05/21 13:16 10/05/21 11:49 Lab Results 10/05/21 10/05/21 10/05/21 Range/Units 11:49 11:49 11:49 WBC (3.8-10.6) k/uL RBC (3.80-5.40) m/uL Hgb (11.4-16.0) gm/dL Hct (34.0-46.0) % MCV (80.0-100.0) fL MCH (25.0-35.0) pg MCHC (31.0-37.0) g/dL RDW (11.5-15.5) % Plt Count (150-450) k/uL MPV Neutrophils % % Lymphocytes % % Monocytes % % Eosinophils % % Basophils % % Neutrophils # (1.3-7.7) k/uL Lymphocytes # (1.0-4.8) k/uL Monocytes # (0-1.0) k/uL Eosinophils # (0-0.7) k/uL Basophils # (0-0.2) k/uL Hypochromasia Poikilocytosis Anisocytosis Microcytosis PT (9.0-12.0) sec INR (<1.2) APTT (22.0-30.0) sec Sodium 135 L (137-145) mmol/L Potassium 3.4 L (3.5-5.1) mmol/L Chloride 107 (98-107) mmol/L Carbon Dioxide 22 (22-30) mmol/L Anion Gap 6 mmol/L BUN 16 (7-17) mg/dL Creatinine 0.73 (0.52-1.04) mg/dL Est GFR (CKD-EPI)AfAm 88 (>60 ml/min/1.73 sqM) Est GFR (CKD-EPI)NonAf 77 (>60 ml/min/1.73 sqM) Glucose 238 H (74-99) mg/dL Plasma Lactic Acid Tang 2.9 H* (0.7-2.0) mmol/L Calcium 8.2 L (8.4-10.2) mg/dL Magnesium 1.7 (1.6-2.3) mg/dL Total Bilirubin 0.2 (0.2-1.3) mg/dL AST 22 (14-36) U/L ALT 14 (4-34) U/L Alkaline Phosphatase 88 (38-126) U/L Troponin I <0.012 (0.000-0.034) ng/mL Total Protein 6.1 L (6.3-8.2) g/dL Albumin 2.9 L (3.5-5.0) g/dL Urine Color Urine Appearance (Clear) Urine pH (5.0-8.0) Ur Specific Rhine (1.001-1.035) Urine Protein (Negative) Urine Glucose (UA) (Negative) Urine Ketones (Negative) Urine Blood (Negative) Urine Nitrite (Negative) Urine Bilirubin (Negative) Urine Urobilinogen (<2.0) mg/dL Ur Leukocyte Esterase (Negative) Urine RBC (0-5) /hpf Urine WBC (0-5) /hpf Urine WBC Clumps (None) /hpf Ur Squamous Epith Cells (0-4) /hpf Urine Bacteria (None) /hpf Urine Mucus (None) /hpf 10/05/21 10/05/21 10/05/21 Range/Units 12:08 12:33 12:33 WBC 6.6 (3.8-10.6) k/uL RBC 2.35 L (3.80-5.40) m/uL Hgb 5.2 L* D (11.4-16.0) gm/dL Hct 18.2 L* (34.0-46.0) % MCV 77.7 L D (80.0-100.0) fL MCH 22.3 L (25.0-35.0) pg MCHC 28.7 L (31.0-37.0) g/dL RDW 18.7 H (11.5-15.5) % Plt Count 206 (150-450) k/uL MPV 9.7 Neutrophils % 73 % Lymphocytes % 17 % Monocytes % 8 % Eosinophils % 1 % Basophils % 0 % Neutrophils # 4.8 (1.3-7.7) k/uL Lymphocytes # 1.1 (1.0-4.8) k/uL Monocytes # 0.5 (0-1.0) k/uL Eosinophils # 0.0 (0-0.7) k/uL Basophils # 0.0 (0-0.2) k/uL Hypochromasia Marked Poikilocytosis Marked Anisocytosis Slight Microcytosis Slight PT 11.4 (9.0-12.0) sec INR 1.1 (<1.2) APTT 20.9 L (22.0-30.0) sec Sodium (137-145) mmol/L Potassium (3.5-5.1) mmol/L Chloride (98-107) mmol/L Carbon Dioxide (22-30) mmol/L Anion Gap mmol/L BUN (7-17) mg/dL Creatinine (0.52-1.04) mg/dL Est GFR (CKD-EPI)AfAm (>60 ml/min/1.73 sqM) Est GFR (CKD-EPI)NonAf (>60 ml/min/1.73 sqM) Glucose (74-99) mg/dL Plasma Lactic Acid Tang (0.7-2.0) mmol/L Calcium (8.4-10.2) mg/dL Magnesium (1.6-2.3) mg/dL Total Bilirubin (0.2-1.3) mg/dL AST (14-36) U/L ALT (4-34) U/L Alkaline Phosphatase (38-126) U/L Troponin I (0.000-0.034) ng/mL Total Protein (6.3-8.2) g/dL Albumin (3.5-5.0) g/dL Urine Color Yellow Urine Appearance Turbid H (Clear) Urine pH 5.5 (5.0-8.0) Ur Specific Rhine 1.015 (1.001-1.035) Urine Protein Trace H (Negative) Urine Glucose (UA) 1+ H (Negative) Urine Ketones Negative (Negative) Urine Blood Trace H (Negative) Urine Nitrite Positive H (Negative) Urine Bilirubin Negative (Negative) Urine Urobilinogen <2.0 (<2.0) mg/dL Ur Leukocyte Esterase Large H (Negative) Urine RBC 6 H (0-5) /hpf Urine WBC >182 H (0-5) /hpf Urine WBC Clumps Many H (None) /hpf Ur Squamous Epith Cells 1 (0-4) /hpf Urine Bacteria Moderate H (None) /hpf Urine Mucus Rare H (None) /hpf 16/ Range/Units 13:16 WBC 7.1 (3.8-10.6) k/uL RBC 2.37 L (3.80-5.40) m/uL Hgb 5.3 L* (11.4-16.0) gm/dL Hct 18.4 L* (34.0-46.0) % MCV 77.6 L (80.0-100.0) fL MCH 22.4 L (25.0-35.0) pg MCHC 28.8 L (31.0-37.0) g/dL RDW 18.4 H (11.5-15.5) % Plt Count 217 (150-450) k/uL MPV 8.2 Neutrophils % 66 % Lymphocytes % 24 % Monocytes % 8 % Eosinophils % 0 % Basophils % 0 % Neutrophils # 4.7 (1.3-7.7) k/uL Lymphocytes # 1.7 (1.0-4.8) k/uL Monocytes # 0.5 (0-1.0) k/uL Eosinophils # 0.0 (0-0.7) k/uL Basophils # 0.0 (0-0.2) k/uL Hypochromasia Marked Poikilocytosis Marked Anisocytosis Slight Microcytosis Slight PT (9.0-12.0) sec INR (<1.2) APTT (22.0-30.0) sec Sodium (137-145) mmol/L Potassium (3.5-5.1) mmol/L Chloride (98-107) mmol/L Carbon Dioxide (22-30) mmol/L Anion Gap mmol/L BUN (7-17) mg/dL Creatinine (0.52-1.04) mg/dL Est GFR (CKD-EPI)AfAm (>60 ml/min/1.73 sqM) Est GFR (CKD-EPI)NonAf (>60 ml/min/1.73 sqM) Glucose (74-99) mg/dL Plasma Lactic Acid Tang (0.7-2.0) mmol/L Calcium (8.4-10.2) mg/dL Magnesium (1.6-2.3) mg/dL Total Bilirubin (0.2-1.3) mg/dL AST (14-36) U/L ALT (4-34) U/L Alkaline Phosphatase (38-126) U/L Troponin I (0.000-0.034) ng/mL Total Protein (6.3-8.2) g/dL Albumin (3.5-5.0) g/dL Urine Color Urine Appearance (Clear) Urine pH (5.0-8.0) Ur Specific Rhine (1.001-1.035) Urine Protein (Negative) Urine Glucose (UA) (Negative) Urine Ketones (Negative) Urine Blood (Negative) Urine Nitrite (Negative) Urine Bilirubin (Negative) Urine Urobilinogen (<2.0) mg/dL Ur Leukocyte Esterase (Negative) Urine RBC (0-5) /hpf Urine WBC (0-5) /hpf Urine WBC Clumps (None) /hpf Ur Squamous Epith Cells (0-4) /hpf Urine Bacteria (None) /hpf Urine Mucus (None) /hpf Disposition Clinical Impression: Anemia, UTI (urinary tract infection) Disposition: ADMITTED IP TO THIS [facility] Condition: Stable Is patient prescribed a controlled substance at d/c from ED?: No Referrals: Sudhakar Ferreira MD [Primary Care Provider] - 1-2 days Decision to Admit Reason: Admit from EC Decision Date: 10/05/21 Decision Time: 14:07
[2021-10-05 12:22] LABS: Appearance,Urine Turbid (Clear); Bacteria,Urine Moderate /hpf; Bilirubin,Urine Negative (Negative); Blood,Urine Trace (Negative); Color,Urine Yellow; Glucose,Urine (UA) 1+ (Negative); Ketones,Urine Negative (Negative); Leukocyte Esterase,Urine Large (Negative); Mucus,Urine Rare /hpf; Nitrite,Urine Positive (Negative); PH, Urine 5.5 (5.0-8.0); Protein,Urine Trace (Negative); RBC,Urine 6 /hpf (0-5); Specific Gravity,Urine 1.015 (1.001-1.035); Squamous Epithelial Cell,Urine 1 /hpf (0-4); Urobilinogen,Urine <2.0 mg/dL (<2.0); WBC,Urine >182 /hpf (0-5)
[2021-10-05 12:27] LABS: Albumin 2.9 g/dL (3.5-5.0); Calcium 8.2 mg/dL (8.4-10.2); Magnesium 1.7 mg/dL (1.6-2.3); Potassium 3.4 mmol/L (3.5-5.1); Total Bilirubin 0.2 mg/dL (0.2-1.3); Total Protein 6.1 g/dL (6.3-8.2)
[2021-10-05] MEDS ORDERED: SODIUM CHLORIDE 0.9% 500 ML 500 ML IV ONE (12:36)
[2021-10-05 12:53] LABS: Anisocytosis Slight; Basophils % (A) 0 %; Eosinophils % (A) 1 %; Hypochromasia Marked; Lymphocytes # (A) 1.1 k/uL (1.0-4.8); Lymphocytes % (A) 17 %; MCH 22.3 pg (25.0-35.0); MCHC 28.7 g/dL (31.0-37.0); MCV 77.7 fL (80.0-100.0); Mean Platelet Volume 9.7; Microcytosis Slight; Monocytes # (A) 0.5 k/uL (0-1.0); Monocytes % (A) 8 %; Neutrophils # (A) 4.8 k/uL (1.3-7.7); Neutrophils % (A) 73 %; Platelet Count 206 k/uL (150-450); Poikilocytosis Marked; RBC 2.35 m/uL (3.80-5.40); RDW 18.7 % (11.5-15.5); WBC 6.6 k/uL (3.8-10.6)
[2021-10-05 13:02] LABS: HGB 5.2 gm/dL (11.4-16.0)
[2021-10-05 13:03] LABS: HCT 18.2 % (34.0-46.0)
[2021-10-05 13:06] LABS: INR 1.1 (<1.2); Prothrombin Time 11.4 sec (9.0-12.0)
[2021-10-05 13:07] LABS: Partial Thromboplastin Time 20.9 sec (22.0-30.0)
[2021-10-05] MEDS ORDERED: PANTOPRAZOLE 40 MG/10 ML VIAL IVP STA (13:16)
[2021-10-05 13:52] LABS: Anisocytosis Slight; Basophils % (A) 0 %; Eosinophils % (A) 0 %; Hypochromasia Marked; Lymphocytes # (A) 1.7 k/uL (1.0-4.8); Lymphocytes % (A) 24 %; MCH 22.4 pg (25.0-35.0); MCHC 28.8 g/dL (31.0-37.0); MCV 77.6 fL (80.0-100.0); Mean Platelet Volume 8.2; Microcytosis Slight; Monocytes # (A) 0.5 k/uL (0-1.0); Monocytes % (A) 8 %; Neutrophils # (A) 4.7 k/uL (1.3-7.7); Neutrophils % (A) 66 %; Platelet Count 217 k/uL (150-450); Poikilocytosis Marked; RBC 2.37 m/uL (3.80-5.40); RDW 18.4 % (11.5-15.5); WBC 7.1 k/uL (3.8-10.6)
[2021-10-05 13:55] LABS: HCT 18.4 % (34.0-46.0); HGB 5.3 gm/dL (11.4-16.0)
[2021-10-05] MEDS ORDERED: ACETAMINOPHEN TAB 325 MG TAB PO PRN (14:01)
[2021-10-05] MEDS ORDERED: NALOXONE 0.4 MG/ML 1 ML VIAL IV PRN (14:01)
--- NOTE | 2021-10-05 15:05 | CT ---
EXAMINATION TYPE: CT abdomen pelvis wo con DATE OF EXAM: 10/05/2021 HISTORY: Epigastric tenderness CT DLP: 444.3 mGycm. Automated Exposure Control for Dose Reduction was Utilized. TECHNIQUE: CT scan of the abdomen and pelvis is performed without oral or IV contrast. COMPARISON: CT abdomen and pelvis July 04, 2017 FINDINGS: Within the limitations of a non-contrast study, the following observations are made. LUNG BASES: Mild to moderate parenchymal scarring throughout the lung bases is more prominent from 20 17 study. LIVER/GB: Cholecystectomy clips again seen. PANCREAS: No significant abnormality is seen. SPLEEN: No significant abnormality is seen. ADRENALS: Slight thickening to both adrenal glands favors benign lipid rich hyperplasia. KIDNEYS: New 3 mm calculus right kidney upper pole level axial image 42. Tiny hyperdense focus favors proteinaceous cysts axial image 35. Exophytic 1.0 cm cyst laterally upper pole of kidney axial image 30. No hydronephrosis or obstructing renal calculi bilaterally. BOWEL: Moderate size hiatal hernia redemonstrated. No suspicious small or large bowel dilatation. Sli ghtly suboptimal evaluation without enteric contrast GENITAL ORGANS: Anteverted uterus. LYMPH NODES: No greater than 1cm abdominal or pelvic lymph nodes are appreciated. OSSEOUS STRUCTURES: Osseous structures are demineralized. Moderate compression type fracture at T11 l evel. Mild compression type fracture at T10 level. Focal height loss posterior superior T12 endplate. No linear lucency to suggest acute or subacute fractures. Multilevel facet arthropathy lower lumbar spine. OTHER: Moderate to severe calcified plaque of the aorta extends into branch vessels. Ectatic course i s seen without greater than 3.0 cm aneurysm. IMPRESSION: No new or acute findings clearly seen to account for patient's symptoms. No bowel obstruc tion is present.
--- NOTE | 2021-10-05 15:33 | P.HPIM ---
History of Present Illness H&P Date: 10/05/21 Chief Complaint: Weakness History of Presenting Illness: Patient is a very pleasant 80-year-old female with a past medical history of hypertension, hyperlipidemia, and GERD. She recently underwent an ORIF of left ankle on 08/02/21 and was discharged to [facility] on 08/04/21. Patient was discharged on DVT prophylaxis with aspirin 81 mg twice a day. Patient reports that she was released from the rehab on 10/02/21 and after returning home began feeling very weak with dizziness/lightheadedness. Patient reports she was unable to walk any distance without having to stop and take a break to catch her breath and this progressively worsened so she came to the emergency department today. Patient reports intermittent abdominal cramping/tenderness and history of noted blood in her stool but states she is unsure of whether or not she has been having any recent blood in her stool or dark-colored stool because she has not looked or paid any attention, she does report last bowel movement being Saturday and 10/02/21. Patient does report dizziness, weakness, dyspnea with exertion, and intermittent abdominal pain/cramping. She denied In the emergency department patient underwent extensive evaluation. She was found to have a hemoglobin of 5.2 (previously 10.3), potassium 3.4, and a lactic acid of 2.9. In addition patient found to have UTI with urinalysis turbid positive for protein, glucose, blood, nitrites, leukocytes, and greater than 182 WBCs. Patient had previous UTI in August in which culture was positive for ESBL. Hemoglobin was rechecked and resulted at 5.3. Orders placed for transfusion of 2 units PRBCs and patient was placed on Protonix 40 mg IVP twice daily. Patient admitted under our services with consultation to GI and infectious disease. Physical exam: Vital signs reviewed and stable. General: Nontoxic, no distress and appears stated age. Derm: Skin warm and dry, normal coloration for ethnicity. Head: Atraumatic, normocephalic and symmetric. Eyes: EOMs intact, no lid lag, and anicteric sclera Mouth: no lip lesions, mucus membranes moist Cardiovascular: regular rate and rhythm with normal S1S2, no murmur, positive posterior tibial pulses bilaterally, and cap refill < 2 seconds. Lungs: Respirations even, regular, and unlabored on room air. Lungs CTA bilaterally, no rhonchi, no rales, no wheezing, and no accessory muscle usage. Abdominal: soft, nontender to palpation, no guarding, no appreciable organomega ly Ext: ROM intact. No gross muscle atrophy, no edema, no contractures. Movement and sensation of left toes intact. Postsurgical splint in place to left lower extremity. Neuro: Speech clear, face symmetrical and CN II-XII grossly intact with no noted focal neuro deficits Psych: Alert and oriented to person, place, time, and situation. Appropriate and pleasant affect. Assessment and Plan of Care: Acute blood loss symptomatic anemia, unclear etiology suspected GI bleed -Transfuse 2 units PRBCs -Consult Gastroenterology. -CT abdomen and pelvis without contrast -Monitor H&H every 6 hours x 4 and transfuse as needed for hemoglobin less than 7. -Protonix 40 mg IVP twice daily. -Nothing by mouth until cleared by GI. -Continued gentle hydration with 0.9% normal. -SCDs for DVT prophylaxis. -NPO at midnight. UTI -Urinalysis turbid positive for protein, glucose, blood, nitrites, leukocytes, and greater than 182 WBCs. Patient had previous UTI back in August in which urine culture was positive for ESBL -IV antibiotics: Aztreonam 1 g every 8 hours -Consult infectious disease -Follow up on current urine culture. -Bladder management Hypertension Monitor vital signs and continue daily medication regimen with amlodipine/benazepril and metoprolol. Hyperlipidemia Continue daily medication regimen with atorvastatin. GERD Protonix 40 mg IVP twice daily CODE STATUS: Full code DVT prophylaxis: SCDs Discussed with: Patient Anticipated discharge date: Clinical course to determine Anticipated discharge place: Home A total of 45 minutes was spent on the care of this complex patient more than 50% of the time was spent in counseling and care coordination. Past Medical History Past Medical History: Diabetes Mellitus, Hypertension Additional Past Medical History / Comment(s): FX LEFT WRIST, IN HALF CAST, col itis, History of Any Multi-Drug Resistant Organisms: ESBL Date of last positivie culture/infection: 09/17/21 ESBL E. coli MDRO Source:: Urine Past Surgical History: Appendectomy, Cholecystectomy Additional Past Surgical History / Comment(s): colonoscopy ; Left ANkle Past Anesthesia/Blood Transfusion Reactions: No Reported Reaction Past Psychological History: No Psychological Hx Reported Smoking Status: Former smoker - Past Family History Brother(s) Family Medical History: Cancer Sister(s) Family Medical History: Cancer Medications and Allergies Home Medications Medication Instructions Recorded Confirmed Type Atorvastatin [Lipitor] 10 mg PO HS 07/04/17 10/05/21 History Dicyclomine [Bentyl] 10 mg PO TID 07/04/17 10/05/21 History Metoprolol Tartrate [Lopressor] 50 mg PO BID 07/04/17 10/05/21 History amLODIPine BESYLATE/BENAZEPRIL 1 cap PO DAILY 07/04/17 10/05/21 History [Lotrel 5-20 MG] Ergocalciferol [Vitamin D2 (1250 1,250 mcg PO WORKMAN 10/05/21 10/05/21 History Mcg = 79472 Iu)] Allergies Allergy/AdvReac Type Severity Reaction Status Date / Time Penicillins Allergy Swelling Verified 10/05/21 14:10 Sulfa (Sulfonamide Allergy Swelling Verified 10/05/21 14:10 Antibiotics) Physical Exam Vitals: Vital Signs Temp Pulse Resp BP Pulse Ox 10/05/21 11:00 98.0 F 83 16 138/66 98 Intake and Output 10/04/21 10/05/21 10/05/21 22:59 06:59 14:59 Other: Weight 58.967 kg Results CBC & Chem 7: 10/05/21 13:16 10/05/21 11:49 Labs: Abnormal Lab Results - Last 24 Hours (Table) 10/05/21 10/05/21 10/05/21 Range/Units 11:49 11:49 12:08 RBC (3.80-5.40) m/uL Hgb (11.4-16.0) gm/dL Hct (34.0-46.0) % MCV (80.0-100.0) fL MCH (25.0-35.0) pg MCHC (31.0-37.0) g/dL RDW (11.5-15.5) % APTT (22.0-30.0) sec Sodium 135 L (137-145) mmol/L Potassium 3.4 L (3.5-5.1) mmol/L Glucose 238 H (74-99) mg/dL Plasma Lactic Acid Tang 2.9 H* (0.7-2.0) mmol/L Calcium 8.2 L (8.4-10.2) mg/dL Total Protein 6.1 L (6.3-8.2) g/dL Albumin 2.9 L (3.5-5.0) g/dL Urine Appearance Turbid H (Clear) Urine Protein Trace H (Negative) Urine Glucose (UA) 1+ H (Negative) Urine Blood Trace H (Negative) Urine Nitrite Positive H (Negative) Ur Leukocyte Esterase Large H (Negative) Urine RBC 6 H (0-5) /hpf Urine WBC >182 H (0-5) /hpf Urine WBC Clumps Many H (None) /hpf Urine Bacteria Moderate H (None) /hpf Urine Mucus Rare H (None) /hpf 10/05/21 10/05/21 Range/Units 12:33 12:33 RBC 2.35 L (3.80-5.40) m/uL Hgb 5.2 L* D (11.4-16.0) gm/dL Hct 18.2 L* (34.0-46.0) % MCV 77.7 L D (80.0-100.0) fL MCH 22.3 L (25.0-35.0) pg MCHC 28.7 L (31.0-37.0) g/dL RDW 18.7 H (11.5-15.5) % APTT 20.9 L (22.0-30.0) sec Sodium (137-145) mmol/L Potassium (3.5-5.1) mmol/L Glucose (74-99) mg/dL Plasma Lactic Acid Tang (0.7-2.0) mmol/L Calcium (8.4-10.2) mg/dL Total Protein (6.3-8.2) g/dL Albumin (3.5-5.0) g/dL Urine Appearance (Clear) Urine Protein (Negative) Urine Glucose (UA) (Negative) Urine Blood (Negative) Urine Nitrite (Negative) Ur Leukocyte Esterase (Negative) Urine RBC (0-5) /hpf Urine WBC (0-5) /hpf Urine WBC Clumps (None) /hpf Urine Bacteria (None) /hpf Urine Mucus (None) /hpf
[2021-10-05] MEDS: SODIUM CHLORIDE 0.9% 1,000 ML IV SCH (16:08)
[2021-10-05] MEDS: AZTREONAM 1 GM in SODIUM CHLORIDE 0.9% 50 ML IVPB SCH ×2 (16:08→23:07)
[2021-10-05] MEDS ORDERED: MELATONIN 5 MG TABLET PO ONE (20:52)
[2021-10-05] MEDS: ATORVASTATIN 10 MG TAB PO SCH (21:06)
[2021-10-05] MEDS: METOPROLOL TARTRATE 50 MG TAB PO SCH (21:06)
[2021-10-05] MEDS: PANTOPRAZOLE 40 MG/10 ML VIAL IVP SCH (21:06)
[2021-10-05 23:45] LABS: Anisocytosis Slight; Basophils % (A) 1 %; Eosinophils # (A) 0.1 k/uL (0-0.7); Eosinophils % (A) 2 %; HCT 26.1 % (34.0-46.0); Hypochromasia Marked; Lymphocytes # (A) 2.1 k/uL (1.0-4.8); Lymphocytes % (A) 32 %; MCH 25.1 pg (25.0-35.0); MCHC 30.7 g/dL (31.0-37.0); MCV 81.7 fL (80.0-100.0); Microcytosis Slight; Monocytes # (A) 0.5 k/uL (0-1.0); Monocytes % (A) 7 %; Neutrophils # (A) 3.5 k/uL (1.3-7.7); Neutrophils % (A) 55 %; Platelet Count 191 k/uL (150-450); Poikilocytosis Marked; RBC 3.19 m/uL (3.80-5.40); RDW 17.9 % (11.5-15.5); WBC 6.4 k/uL (3.8-10.6)
[2021-10-06] MEDS: SODIUM CHLORIDE 0.9% 1,000 ML IV SCH ×2 (04:39→21:08)
[2021-10-06] MEDS: AZTREONAM 1 GM in SODIUM CHLORIDE 0.9% 50 ML IVPB SCH (06:39)
[2021-10-06 08:03] LABS: Anisocytosis Slight; HCT 26.3 % (34.0-46.0); HGB 8.1 gm/dL (11.4-16.0); Hypochromasia Marked; MCH 25.2 pg (25.0-35.0); MCHC 30.7 g/dL (31.0-37.0); MCV 81.9 fL (80.0-100.0); Mean Platelet Volume 9.4; Microcytosis Slight; Platelet Count 201 k/uL (150-450); Poikilocytosis Marked; RBC 3.21 m/uL (3.80-5.40); RDW 17.8 % (11.5-15.5); WBC 6.9 k/uL (3.8-10.6)
[2021-10-06] MEDS: METOPROLOL TARTRATE 50 MG TAB PO SCH ×2 (08:04→20:09)
[2021-10-06] MEDS: PANTOPRAZOLE 40 MG/10 ML VIAL IVP SCH ×2 (08:04→20:09)
[2021-10-06] MEDS: lisinopriL 20 MG TAB PO SCH (08:05)
[2021-10-06] MEDS: amLODIPine 5 MG TAB PO SCH (08:05)
[2021-10-06 08:13] LABS: ALT 11 U/L (4-34); AST 19 U/L (14-36); African American GFR (CKD) >90 (>60 ml/min/1.73 sqM); Albumin 2.5 g/dL (3.5-5.0); Alkaline Phosphatase 83 U/L (38-126); Anion Gap 5 mmol/L; Blood Urea Nitrogen 11 mg/dL (7-17); Calcium 7.9 mg/dL (8.4-10.2); Carbon Dioxide 22 mmol/L (22-30); Chloride 111 mmol/L (98-107); Glucose 90 mg/dL (74-99); Magnesium 1.7 mg/dL (1.6-2.3); Non-African American GFR(CKD) 79 (>60 ml/min/1.73 sqM); Potassium 3.7 mmol/L (3.5-5.1); Sodium 138 mmol/L (137-145); Total Bilirubin 0.8 mg/dL (0.2-1.3); Total Protein 5.5 g/dL (6.3-8.2)
--- NOTE | 2021-10-06 09:06 | P.CONS ---
History of Present Illness - Reason for Consult Consult date: 10/05/21 UTI Requesting physician: Trae Cha - Chief Complaint weakness x few days - History of Present Illness History of present illness : Patient is 81-year-old female presenting to the ER for evaluation of generalized weakness and this patient was recently discharged from rehab facility after patient did have surgery for the left ankle area patient did mention the left ankle is healing well and have no symptoms related to it patient complains of just weakness no energy patient denies having any headache or URI symptoms denies any chest pain or shortness of breath or cough patient denies having abdominal pain no diarrhea did have some urinary symptoms of burning and decreased urine output but no hematuria with the symptoms the patient presented to hospital on arrival to the ER the patient was afebrile and no fever has recorded subsequently the patient is currently satting 99% on room air patient was noticed to be anemic with a hemoglobin of 5.2 and is getting transfusion white count has been normal kidney function was normal patient did have positive UA urine culture done on 17 September was ESBL E. coli patient did have a penicillin sulfa allergy she was started on aztreonam infectious he was consulted for further management of antibiotic therapy Review of system: CONSTITUTIONAL: Positive for weakness denies fever. EYES: No complaint. ENT: No complaint. RESPIRATORY: No complaint. CARDIOVASCULAR: No complaint. GENITOURINARY: As per history of present illness. GASTROINTESTINAL: No complaint. MUSCULOSKELETAL: No complaint. INTEGUMENTARY: No complaint. PSYCHOLOGIC: No complaint. ENDOCRINE: No complaint. NEUROLOGIC: No complaint. Past medical history : Reviewed, documented below Past surgical history : Reviewed, documented below Social history: Reviewed, documented below Medications: Reviewed, as documented below EXAMINATION: Vital sigans= Reviewed and documented below GENERAL DESCRIPTION: Elderly female lying in bed, no distress. No tachypnea or accessory muscle of respiration use. HEENT: Shows Pallor , no scleral icterus. Oral mucous membrane is dry. NECK: Trachea central, no thyromegaly. LUNGS: Unlabored breathing. Clear to auscultation anteriorly. No wheeze or crackle. HEART: S1, S2, regular rate and rhythm. ABDOMEN: Soft, no tenderness , guarding or rigidity EXTREMITIES: No edema of feet. SKIN: No rash, no masses palpable. NEUROLOGICAL: The patient is awake, alert, oriented x3, mood and affect normal. LABS AND RADIOLOGY: Reviewed results see below Assessment :1- Patient is in the hospital generalized weakness which is likely related to her anemia as the patient has significant drop in her hemoglobin ho wever the patient to have a positive UA and do have urinary symptoms with a recent urine culture done was positive for ESBL with a possible component of symptomatic urinary tract infection and will need to cover for ESBL E. coli while waiting for the culture to finalize 2-patient with multiple antibiotic allergies that would limit the number of antibiotics safe to use Plan: 1-discontinue aztreonam 2-start the patient on Invanz 1 g daily 3-gentle IV fluid We will follow on clinical condition and cultures to further adjust medication if needed Thank you for this consultation we will follow the patient along with you Past Medical History Past Medical History: Diabetes Mellitus, Hypertension Additional Past Medical History / Comment(s): FX LEFT WRIST, IN HALF CAST, colitis, History of Any Multi-Drug Resistant Organisms: ESBL Year Discovered:: 09/17/21 ESBL E. coli MDRO Source:: Urine Past Surgical History: Appendectomy, Cholecystectomy Additional Past Surgical History / Comment(s): colonoscopy ; Left ANkle Past Anesthesia/Blood Transfusion Reactions: No Reported Reaction Past Psychological History: No Psychological Hx Reported Smoking Status: Never smoker Past Alcohol Use History: None Reported Additional Past Alcohol Use History / Comment(s): QUIT SMOKING APPROX 20 YRS AGO, SMOKED 1PPD Past Drug Use History: None Reported - Past Family History Brother(s) Family Medical History: Cancer Sister(s) Family Medical History: Cancer Medications and Allergies Home Medications Medication Instructions Recorded Confirmed Type Atorvastatin [Lipitor] 10 mg PO HS 07/04/17 10/05/21 History Dicyclomine [Bentyl] 10 mg PO TID 07/04/17 10/05/21 History Metoprolol Tartrate [Lopressor] 50 mg PO BID 07/04/17 10/05/21 History amLODIPine BESYLATE/BENAZEPRIL 1 cap PO DAILY 07/04/17 10/05/21 History [Lotrel 5-20 MG] Ergocalciferol [Vitamin D2 (1250 1,250 mcg PO WORKMAN 10/05/21 10/05/21 History Mcg = 06647 Iu)] Allergies Allergy/AdvReac Type Severity Reaction Status Date / Time Penicillins Allergy Swelling Verified 10/05/21 14:10 Sulfa (Sulfonamide Allergy Swelling Verified 10/05/21 14:10 Antibiotics) Physical Exam Vitals: Vital Signs Temp Pulse Pulse Resp BP BP Pulse Ox 10/05/21 18:30 98.0 F 79 18 123/79 10/05/21 18:00 98.0 F 77 18 126/71 100 10/05/21 17:52 98.0 F 73 18 135/67 100 10/05/21 17:50 98.0 F 78 18 135/67 94 L 10/05/21 15:37 98.0 F 71 16 127/58 10/05/21 15:07 98.1 F 70 16 121/57 98 10/05/21 14:57 98.0 F 72 16 122/60 98 10/05/21 14:51 73 16 134/59 98 10/05/21 13:00 80 16 139/57 98 10/05/21 11:00 98.0 F 83 16 138/66 98 Intake and Output 10/05/21 10/05/21 10/05/21 06:59 14:59 22:59 Intake Total 0 1120 Balance 0 1120 Intake: Oral 500 Blood Product 0 620 Rc As-1 Unit 0 310 [id number] Rc Pheresis 2 As3 Unit 310 [id number] Other: Weight 58.967 kg 58.967 kg Results CBC & Chem 7: 10/06/21 07:00 10/06/21 07:00 Labs: Abnormal Lab Results - Last 24 Hours (Table) 10/05/21 10/05/21 10/05/21 Range/Units 11:49 11:49 12:08 RBC (3.80-5.40) m/uL Hgb (11.4-16.0) gm/dL Hct (34.0-46.0) % MCV (80.0-100.0) fL MCH (25.0-35.0) pg MCHC (31.0-37.0) g/dL RDW (11.5-15.5) % APTT (22.0-30.0) sec Sodium 135 L (137-145) mmol/L Potassium 3.4 L (3.5-5.1) mmol/L Glucose 238 H (74-99) mg/dL Plasma Lactic Acid Tang 2.9 H* (0.7-2.0) mmol/L Calcium 8.2 L (8.4-10.2) mg/dL Total Protein 6.1 L (6.3-8.2) g/dL Albumin 2.9 L (3.5-5.0) g/dL Urine Appearance Turbid H (Clear) Urine Protein Trace H (Negative) Urine Glucose (UA) 1+ H (Negative) Urine Blood Trace H (Negative) Urine Nitrite Positive H (Negative) Ur Leukocyte Esterase Large H (Negative) Urine RBC 6 H (0-5) /hpf Urine WBC >182 H (0-5) /hpf Urine WBC Clumps Many H (None) /hpf Urine Bacteria Moderate H (None) /hpf Urine Mucus Rare H (None) /hpf Crossmatch 10/05/21 10/05/21 10/05/21 Range/Units 12:33 12:33 13:16 RBC 2.35 L 2.37 L (3.80-5.40) m/uL Hgb 5.2 L* D 5.3 L* (11.4-16.0) gm/dL Hct 18.2 L* 18.4 L* (34.0-46.0) % MCV 77.7 L D 77.6 L (80.0-100.0) fL MCH 22.3 L 22.4 L (25.0-35.0) pg MCHC 28.7 L 28.8 L (31.0-37.0) g/dL RDW 18.7 H 18.4 H (11.5-15.5) % APTT 20.9 L (22.0-30.0) sec Sodium (137-145) mmol/L Potassium (3.5-5.1) mmol/L Glucose (74-99) mg/dL Plasma Lactic Acid Tang (0.7-2.0) mmol/L Calcium (8.4-10.2) mg/dL Total Protein (6.3-8.2) g/dL Albumin (3.5-5.0) g/dL Urine Appearance (Clear) Urine Protein (Negative) Urine Glucose (UA) (Negative) Urine Blood (Negative) Urine Nitrite (Negative) Ur Leukocyte Esterase (Negative) Urine RBC (0-5) /hpf Urine WBC (0-5) /hpf Urine WBC Clumps (None) /hpf Urine Bacteria (None) /hpf Urine Mucus (None) /hpf Crossmatch 10/05/21 Range/Units 13:16 RBC (3.80-5.40) m/uL Hgb (11.4-16.0) gm/dL Hct (34.0-46.0) % MCV (80.0-100.0) fL MCH (25.0-35.0) pg MCHC (31.0-37.0) g/dL RDW (11.5-15.5) % APTT (22.0-30.0) sec Sodium (137-145) mmol/L Potassium (3.5-5.1) mmol/L Glucose (74-99) mg/dL Plasma Lactic Acid Tang (0.7-2.0) mmol/L Calcium (8.4-10.2) mg/dL Total Protein (6.3-8.2) g/dL Albumin (3.5-5.0) g/dL Urine Appearance (Clear) Urine Protein (Negative) Urine Glucose (UA) (Negative) Urine Blood (Negative) Urine Nitrite (Negative) Ur Leukocyte Esterase (Negative) Urine RBC (0-5) /hpf Urine WBC (0-5) /hpf Urine WBC Clumps (None) /hpf Urine Bacteria (None) /hpf Urine Mucus (None) /hpf Crossmatch See Detail Microbiology - Last 24 Hours (Table) 10/05/21 12:08 Urine Culture - Preliminary Urine,Voided
[2021-10-06] MEDS: ERTAPENEM 1 GM in SODIUM CHLORIDE 0.9% 50 ML IVPB SCH (10:21)
[2021-10-06] MEDS ORDERED: PEG 3350-NA SULF,BICARB,CL/KCL 4,000 ML BOTTLE PO ONE (14:17)
--- NOTE | 2021-10-06 14:18 | P.CONS ---
History of Present Illness - Reason for Consult Consult date: 10/06/21 anemia Requesting physician: Yvrose Herndon - Chief Complaint Dizziness and weakness - History of Present Illness This is a 81-year-old female who presented to the emergency department yesterday afternoon with complaints of weakness and dizziness. The patient was recently admitted to this hospital discharged to [facility] status post ORIF of left ankle and 08/02/2021. She was discharged home on DVT prophylaxis with aspirin 81 mg twice a day. On Saturday she was discharged home and was not feeling well. States she had multiple loose bowel movements on Saturday with of lower abdominal cramping. She did not notice the color of her stool. She again had some lower abdominal cramping Saturday followed by another episode of diarrhea. Again she states she did not look at her stool so she does not know if she had any black stool or blood in her stool. She came in for evaluation that she thought she possibly had a urinary tract infection as she was positive for UTI in August for ESBL E. coli and treated. On admission she was noted to have a hemoglobin of 5.2 therefore gastroenterology was consulted for symptomatic anemia. The patient was transfused with 2 units of PRBC transfusion with a repeat hemoglobin of 8.1, WBC 6.9 hematocrit 26 platelet count 201,000 INR 1.1 LFTs unremarkable. Patient states her last colonoscopy was approximately 5-6 years ago she believes that it was normal. She denies any previous history of anemia, peptic ulcer disease, NSAID user anticoagulation. CT of abdomen and pelvis with no acute findings. Review of Systems REVIEW OF SYSTEMS: CARDIOPULMONARY: No chest pain or shortness of breath. Gastrointestinal: No abdominal pain. No nausea or vomiting. No hematemesis, coffee-ground emesis. No rectal bleeding, or melena. GENITOURINARY: No dysuria or hematuria. MUSCULOSKELETAL: Reports normal range of motion., Joint pain. SKIN: No rashes. No jaundice. ENDOCRINE: No chills, fevers. No excessive weight gain or loss. No polydipsia or polyuria. PSYCHIATRIC: Unremarkable. NEUROLOGY: No change in mental status. Dizziness and weakness. ENT: Vision unremarkable. CONSTITUTIONAL: No recent weight loss. No fever, chills, night sweats. Past Medical History Past Medical History: Diabetes Mellitus, Hypertension Additional Past Medical History / Comment(s): FX LEFT WRIST, IN HALF CAST, colitis, History of Any Multi-Drug Resistant Organisms: ESBL Year Discovered:: 09/17/21 ESBL E. coli MDRO Source:: Urine Past Surgical History: Appendectomy, Cholecystectomy Additional Past Surgical History / Comment(s): colonoscopy ; Left ANkle Past Anesthesia/Blood Transfusion Reactions: No Reported Reaction Past Psychological History: No Psychological Hx Reported Smoking Status: Never smoker Past Alcohol Use History: None Reported Additional Past Alcohol Use History / Comment(s): QUIT SMOKING APPROX 20 YRS AGO, SMOKED 1PPD Past Drug Use History: None Reported - Past Family History Brother(s) Family Medical History: Cancer Sister(s) Family Medical History: Cancer Medications and Allergies Home Medications Medication Instructions Recorded Confirmed Type Atorvastatin [Lipitor] 10 mg PO HS 07/04/17 10/05/21 History Dicyclomine [Bentyl] 10 mg PO TID 07/04/17 10/05/21 History Metoprolol Tartrate [Lopressor] 50 mg PO BID 07/04/17 10/05/21 History amLODIPine BESYLATE/BENAZEPRIL 1 cap PO DAILY 07/04/17 10/05/21 History [Lotrel 5-20 MG] Ergocalciferol [Vitamin D2 (1250 1,250 mcg PO WORKMAN 10/05/21 10/05/21 History Mcg = [id number] Iu)] Allergies Allergy/AdvReac Type Severity Reaction Status Date / Time Penicillins Allergy Swelling Verified 10/05/21 14:10 Sulfa (Sulfonamide Allergy Swelling Verified 10/05/21 14:10 Antibiotics) Physical Exam Vitals: Vital Signs Temp Pulse Pulse Resp BP BP Pulse Ox 10/06/21 08:03 98.0 F 60 18 123/77 99 10/06/21 04:00 98.5 F 69 18 131/67 99 10/05/21 23:58 60 16 108/62 98 10/05/21 21:01 98.2 F 67 16 107/55 100 10/05/21 21:00 98.2 F 67 18 107/55 100 10/05/21 18:30 98.0 F 79 18 123/79 10/05/21 18:00 98.0 F 77 18 126/71 100 10/05/21 17:52 98.0 F 73 18 135/67 100 10/05/21 17:50 98.0 F 78 18 135/67 94 L 10/05/21 15:37 98.0 F 71 16 127/58 10/05/21 15:07 98.1 F 70 16 121/57 98 10/05/21 14:57 98.0 F 72 16 122/60 98 10/05/21 14:51 73 16 134/59 98 10/05/21 13:00 80 16 139/57 98 10/05/21 11:00 98.0 F 83 16 138/66 98 Intake and Output 10/05/21 10/06/21 10/06/21 22:59 06:59 14:59 Intake Total 1120 Output Total 200 Balance 1120 -200 Intake: Oral 500 Blood Product 620 Rc As-1 Unit 310 [id number] Rc Pheresis 2 As3 Unit 310 [id number] Output: Urine 200 Other: Voiding Method External Catheter # Voids 1 Weight 58.967 kg 59 kg General appearance: The patient is alert, oriented, appears in no acute distress. HET: Head is normocephalic and atraumatic. Conjunctiva pink. Sclera anicteric. Neck: Supple without lymphadenopathy. Trachea midline. Heart: S1 S2. Regular rate and rhythm. Lungs: Clear to auscultation. Abdomen: Soft, epigastric tenderness, nondistended with bowel sounds. No g uarding or rigidity. Skin: No rashes. No jaundice. Extremities: Normal skin color and turgor. No pedal edema. Neurological: No focal deficits. Alert and oriented x3. Results CBC & Chem 7: 10/06/21 07:00 10/06/21 07:00 Labs: Abnormal Lab Results - Last 24 Hours (Table) 10/05/21 10/05/21 10/05/21 Range/Units 11:49 11:49 12:08 RBC (3.80-5.40) m/uL Hgb (11.4-16.0) gm/dL Hct (34.0-46.0) % MCV (80.0-100.0) fL MCH (25.0-35.0) pg MCHC (31.0-37.0) g/dL RDW (11.5-15.5) % APTT (22.0-30.0) sec Sodium 135 L (137-145) mmol/L Potassium 3.4 L (3.5-5.1) mmol/L Chloride (98-107) mmol/L Glucose 238 H (74-99) mg/dL Plasma Lactic Acid Tang 2.9 H* (0.7-2.0) mmol/L Calcium 8.2 L (8.4-10.2) mg/dL Total Protein 6.1 L (6.3-8.2) g/dL Albumin 2.9 L (3.5-5.0) g/dL Urine Appearance Turbid H (Clear) Urine Protein Trace H (Negative) Urine Glucose (UA) 1+ H (Negative) Urine Blood Trace H (Negative) Urine Nitrite Positive H (Negative) Ur Leukocyte Esterase Large H (Negative) Urine RBC 6 H (0-5) /hpf Urine WBC >182 H (0-5) /hpf Urine WBC Clumps Many H (None) /hpf Urine Bacteria Moderate H (None) /hpf Urine Mucus Rare H (None) /hpf Crossmatch 10/05/21 10/05/21 10/05/21 Range/Units 12:33 12:33 13:16 RBC 2.35 L 2.37 L (3.80-5.40) m/uL Hgb 5.2 L* D 5.3 L* (11.4-16.0) gm/dL Hct 18.2 L* 18.4 L* (34.0-46.0) % MCV 77.7 L D 77.6 L (80.0-100.0) fL MCH 22.3 L 22.4 L (25.0-35.0) pg MCHC 28.7 L 28.8 L (31.0-37.0) g/dL RDW 18.7 H 18.4 H (11.5-15.5) % APTT 20.9 L (22.0-30.0) sec Sodium (137-145) mmol/L Potassium (3.5-5.1) mmol/L Chloride (98-107) mmol/L Glucose (74-99) mg/dL Plasma Lactic Acid Tang (0.7-2.0) mmol/L Calcium (8.4-10.2) mg/dL Total Protein (6.3-8.2) g/dL Albumin (3.5-5.0) g/dL Urine Appearance (Clear) Urine Protein (Negative) Urine Glucose (UA) (Negative) Urine Blood (Negative) Urine Nitrite (Negative) Ur Leukocyte Esterase (Negative) Urine RBC (0-5) /hpf Urine WBC (0-5) /hpf Urine WBC Clumps (None) /hpf Urine Bacteria (None) /hpf Urine Mucus (None) /hpf Crossmatch 10/05/21 10/05/21 10/06/21 Range/Units 13:16 22:29 07:00 RBC 3.19 L 3.21 L (3.80-5.40) m/uL Hgb 8.0 L D 8.1 L (11.4-16.0) gm/dL Hct 26.1 L 26.3 L (34.0-46.0) % MCV (80.0-100.0) fL MCH (25.0-35.0) pg MCHC 30.7 L 30.7 L (31.0-37.0) g/dL RDW 17.9 H 17.8 H (11.5-15.5) % APTT (22.0-30.0) sec Sodium (137-145) mmol/L Potassium (3.5-5.1) mmol/L Chloride (98-107) mmol/L Glucose (74-99) mg/dL Plasma Lactic Acid Tang (0.7-2.0) mmol/L Calcium (8.4-10.2) mg/dL Total Protein (6.3-8.2) g/dL Albumin (3.5-5.0) g/dL Urine Appearance (Clear) Urine Protein (Negative) Urine Glucose (UA) (Negative) Urine Blood (Negative) Urine Nitrite (Negative) Ur Leukocyte Esterase (Negative) Urine RBC (0-5) /hpf Urine WBC (0-5) /hpf Urine WBC Clumps (None) /hpf Urine Bacteria (None) /hpf Urine Mucus (None) /hpf Crossmatch See Detail 10/06/21 Range/Units 07:00 RBC (3.80-5.40) m/uL Hgb (11.4-16.0) gm/dL Hct (34.0-46.0) % MCV (80.0-100.0) fL MCH (25.0-35.0) pg MCHC (31.0-37.0) g/dL RDW (11.5-15.5) % APTT (22.0-30.0) sec Sodium (137-145) mmol/L Potassium (3.5-5.1) mmol/L Chloride 111 H (98-107) mmol/L Glucose (74-99) mg/dL Plasma Lactic Acid Tang (0.7-2.0) mmol/L Calcium 7.9 L (8.4-10.2) mg/dL Total Protein 5.5 L (6.3-8.2) g/dL Albumin 2.5 L (3.5-5.0) g/dL Urine Appearance (Clear) Urine Protein (Negative) Urine Glucose (UA) (Negative) Urine Blood (Negative) Urine Nitrite (Negative) Ur Leukocyte Esterase (Negative) Urine RBC (0-5) /hpf Urine WBC (0-5) /hpf Urine WBC Clumps (None) /hpf Urine Bacteria (None) /hpf Urine Mucus (None) /hpf Crossmatch Microbiology - Last 24 Hours (Table) 10/05/21 12:08 Urine Culture - Preliminary Urine,Voided CT scan - abdomen: report reviewed (no new or acute findings clearly seen to account for patient's symptoms no bowel obstruction present) Assessment and Plan (1) Symptomatic anemia Narrative/Plan: 81-year-old female who presented to the emergency department with complaints of weakness and dizziness. Was found to have a hemoglobin of 5.2 on admission. Gastroenterology was consulted for symptomatic anemia. Patient was transfused with 2 units PRBC transfusion with a repeat hemoglobin 8.1. Patient denies any blood in her stool or black stool. However she does state on Saturday she had several episodes of abdominal cramping followed by loose bowel movements. She does state that she did not look at her stool so she is unsure if there was any blood or if it was black. She has no previous history of peptic ulcer disease and denies any previous history of anemia requiring blood transfusion. She denies any use of NSAIDs or anticoagulation. She was recently has placed and discharged with a ORIF of the left ankle and was discharged on 81 mg of aspirin twice a day prophylactics for DVT. Her last EGD and colonoscopy was 5-6 years ago. Possible etiologies include peptic ulcer disease esophagitis, gastritis, AVM, or other possible etiologies. Will proceed with upper and lower endoscopy. Current Visit: Yes Status: Acute Code(s): D64.9 - ANEMIA, UNSPECIFIED SNOMED Code(s): 845972416 Plan: 1. Clear liquid diet, nothing by mouth after midnight 2. Protonix 40 mg daily 3. Avoid NSAIDs 4. Repeat CBC in the morning, transfuse for hemoglobin less than 7 5. Bowel prep this afternoon 6. Plan for EGD and colonoscopy tomorrow morning. Procedure discussed with patient including risks and benefits. Patient willing to proceed. Thank you for allowing us to participate in the care of the patient, the GI service will sign off, gastroenterology will not be available at the hospital this weekend and through next week. If further evaluation by gastroenterology is required the patient will need transfer as per the primary team's discretion. Dr. yLly Sullivan I agree with the dictator's note, documented as a scribe by Sujata Davis.
--- NOTE | 2021-10-06 15:27 | P.PN ---
Subjective Progress Note Date: 10/06/21 Principal diagnosis: Weakness History of Presenting Illness: Patient is a very pleasant 80-year-old female with a past medical history of hypertension, hyperlipidemia, and GERD. She recently underwent an ORIF of left ankle on 08/02/21 and was discharged to [facility] on 08/04/21. Patient was discharged on DVT prophylaxis with aspirin 81 mg twice a day. Patient reports that she was released from the rehab on 10/02/21 and after returning home began feeling very weak with dizziness/lightheadedness. Patient reports she was unable to walk any distance without having to stop and take a break to catch her breath and this progressively worsened so she came to the emergency department today. Patient reports intermittent abdominal cramping/tenderness and history of noted blood in her stool but states she is unsure of whether or not she has been having any recent blood in her stool or dark-colored stool because she has not looked or paid any attention, she does report last bowel movement being Saturday and 10/02/21. Patient does report dizziness, weakness, dyspnea with exertion, and intermittent abdominal pain/cramping. She denied In the emergency department patient underwent extensive evaluation. She was found to have a hemoglobin of 5.2 (previously 10.3), potassium 3.4, and a lactic acid of 2.9. In addition patient found to have UTI with urinalysis turbid positive for protein, glucose, blood, nitrites, leukocytes, and greater than 182 WBCs. Patient had previous UTI in August in which culture was positive for ESBL. Hemoglobin was rechecked and resulted at 5.3. Orders placed for transfusion of 2 units PRBCs and patient was placed on Protonix 40 mg IVP twice daily. Patient admitted under our services with consultation to GI and infectious disease. Physical exam: Patient seen and fully evaluated at the bedside this morning. She was resting comfortably tolerating oral intake of clear fluids. Patient reports continued slight dizziness/lightheadedness and epigastric pain but continues to deny chest pain, shortness of breath, nausea, vomiting, or diarrhea at this time. Patient continues to deny any noted bleeding or bruising. Hemoglobin is stable status post transfusion and is now 8.1. We will continue to trend hemoglobin and monitor for any signs of bleeding. GI following, plans to take patient for endoscopy and colonoscopy tomorrow morning. Vital signs reviewed and stable. General: Nontoxic, no distress and appears stated age. Derm: Skin warm and dry, normal coloration for ethnicity. Head: Atraumatic, normocephalic and symmetric. Eyes: EOMs intact, no lid lag, and anicteric sclera Mouth: no lip lesions, mucus membranes moist Cardiovascular: regular rate and rhythm with normal S1S2, soft systolic murmur present, positive posterior tibial pulses bilaterally, and cap refill < 2 seconds. Lungs: Respirations even, regular, and unlabored on room air. Lungs CTA bi laterally, no rhonchi, no rales, no wheezing, and no accessory muscle usage. Abdominal: soft, epigastric tenderness upon palpation, no guarding, no appreciable organomegaly Ext: ROM intact. No gross muscle atrophy, no edema, no contractures. Neuro: Speech clear, face symmetrical and CN II-XII grossly intact with no noted focal neuro deficits Psych: Alert and oriented to person, place, time, and situation. Appropriate and pleasant affect. Assessment and Plan of Care: Acute blood loss symptomatic anemia, unclear etiology suspected GI bleed -Status post transfusion of 2 units PRBCs -Gastroenterology following, plans for colonoscopy and endoscopy tomorrow morning.. -CT abdomen and pelvis without contrast negative for acute intra-abdominal process revealing moderate to severe calcified plaque of the aorta extending into branch vessels with a cachectic course seen without greater than 3.0 cm aneurysm. -Monitor H&H every 6 hours x 4 and transfuse as needed for hemoglobin less than 7. -Protonix 40 mg IVP twice daily. -Continued gentle hydration with 0.9% normal saline at 75 mL's per hour. -SCDs for DVT prophylaxis. -Clear liquid diet and NPO at midnight. UTI -Urinalysis turbid positive for protein, glucose, blood, nitrites, leukocytes, and greater than 182 WBCs. Patient had previous UTI back in August in which urine culture was positive for ESBL E. coli -IV antibiotics: Invanz -Infectious disease following -Follow up on current urine culture. -Bladder management Hypertension Monitor vital signs and continue daily medication regimen with amlodipine/benazepril and metoprolol. Hyperlipidemia Continue daily medication regimen with atorvastatin. GERD Protonix 40 mg IVP twice daily CODE STATUS: Full code DVT prophylaxis: SCDs Discussed with: Patient, RN, and pt's son-Castillo Anticipated discharge date: Clinical course to determine Anticipated discharge place: Home A total of 45 minutes was spent on the care of this complex patient more than 50% of the time was spent in counseling and care coordination. Yasmeen (daughter): [phone] Castillo (son) : [phone] Objective - Vital Signs Vital signs: Vital Signs Temp 98.0 F 10/06/21 08:03 Pulse 60 10/06/21 08:03 Resp 18 10/06/21 08:03 BP 123/77 10/06/21 08:03 Pulse Ox 99 10/06/21 08:03 Intake & Output 10/05/21 10/06/21 10/06/21 18:59 06:59 18:59 Intake Total 1120 0 Output Total 200 Balance 1120 -200 Weight 58.967 kg 59 kg Intake: Oral 500 Blood Product 620 0 Rc As-1 Unit 310 [id number] Rc Pheresis 2 As3 Unit 310 0 [id number] Output: Urine 200 Other: Voiding Method External Catheter External Catheter # Voids 1 - Labs CBC & Chem 7: 10/06/21 07:00 10/06/21 07:00 Labs: Abnormal Lab Results - Last 24 Hours (Table) 10/05/21 10/05/21 10/05/21 Range/Units 11:49 11:49 12:08 RBC (3.80-5.40) m/uL Hgb (11.4-16.0) gm/dL Hct (34.0-46.0) % MCV (80.0-100.0) fL MCH (25.0-35.0) pg MCHC (31.0-37.0) g/dL RDW (11.5-15.5) % APTT (22.0-30.0) sec Sodium 135 L (137-145) mmol/L Potassium 3.4 L (3.5-5.1) mmol/L Chloride (98-107) mmol/L Glucose 238 H (74-99) mg/dL Plasma Lactic Acid Tang 2.9 H* (0.7-2.0) mmol/L Calcium 8.2 L (8.4-10.2) mg/dL Total Protein 6.1 L (6.3-8.2) g/dL Albumin 2.9 L (3.5-5.0) g/dL Urine Appearance Turbid H (Clear) Urine Protein Trace H (Negative) Urine Glucose (UA) 1+ H (Negative) Urine Blood Trace H (Negative) Urine Nitrite Positive H (Negative) Ur Leukocyte Esterase Large H (Negative) Urine RBC 6 H (0-5) /hpf Urine WBC >182 H (0-5) /hpf Urine WBC Clumps Many H (None) /hpf Urine Bacteria Moderate H (None) /hpf Urine Mucus Rare H (None) /hpf Crossmatch 10/05/21 10/05/21 10/05/21 Range/Units 12:33 12:33 13:16 RBC 2.35 L 2.37 L (3.80-5.40) m/uL Hgb 5.2 L* D 5.3 L* (11.4-16.0) gm/dL Hct 18.2 L* 18.4 L* (34.0-46.0) % MCV 77.7 L D 77.6 L (80.0-100.0) fL MCH 22.3 L 22.4 L (25.0-35.0) pg MCHC 28.7 L 28.8 L (31.0-37.0) g/dL RDW 18.7 H 18.4 H (11.5-15.5) % APTT 20.9 L (22.0-30.0) sec Sodium (137-145) mmol/L Potassium (3.5-5.1) mmol/L Chloride (98-107) mmol/L Glucose (74-99) mg/dL Plasma Lactic Acid Tang (0.7-2.0) mmol/L Calcium (8.4-10.2) mg/dL Total Protein (6.3-8.2) g/dL Albumin (3.5-5.0) g/dL Urine Appearance (Clear) Urine Protein (Negative) Urine Glucose (UA) (Negative) Urine Blood (Negative) Urine Nitrite (Negative) Ur Leukocyte Esterase (Negative) Urine RBC (0-5) /hpf Urine WBC (0-5) /hpf Urine WBC Clumps (None) /hpf Urine Bacteria (None) /hpf Urine Mucus (None) /hpf Crossmatch 10/05/21 10/05/21 10/06/21 Range/Units 13:16 22:29 07:00 RBC 3.19 L 3.21 L (3.80-5.40) m/uL Hgb 8.0 L D 8.1 L (11.4-16.0) gm/dL Hct 26.1 L 26.3 L (34.0-46.0) % MCV (80.0-100.0) fL MCH (25.0-35.0) pg MCHC 30.7 L 30.7 L (31.0-37.0) g/dL RDW 17.9 H 17.8 H (11.5-15.5) % APTT (22.0-30.0) sec Sodium (137-145) mmol/L Potassium (3.5-5.1) mmol/L Chloride (98-107) mmol/L Glucose (74-99) mg/dL Plasma Lactic Acid Tang (0.7-2.0) mmol/L Calcium (8.4-10.2) mg/dL Total Protein (6.3-8.2) g/dL Albumin (3.5-5.0) g/dL Urine Appearance (Clear) Urine Protein (Negative) Urine Glucose (UA) (Negative) Urine Blood (Negative) Urine Nitrite (Negative) Ur Leukocyte Esterase (Negative) Urine RBC (0-5) /hpf Urine WBC (0-5) /hpf Urine WBC Clumps (None) /hpf Urine Bacteria (None) /hpf Urine Mucus (None) /hpf Crossmatch See Detail 10/06/21 Range/Units 07:00 RBC (3.80-5.40) m/uL Hgb (11.4-16.0) gm/dL Hct (34.0-46.0) % MCV (80.0-100.0) fL MCH (25.0-35.0) pg MCHC (31.0-37.0) g/dL RDW (11.5-15.5) % APTT (22.0-30.0) sec Sodium (137-145) mmol/L Potassium (3.5-5.1) mmol/L Chloride 111 H (98-107) mmol/L Glucose (74-99) mg/dL Plasma Lactic Acid Tang (0.7-2.0) mmol/L Calcium 7.9 L (8.4-10.2) mg/dL Total Protein 5.5 L (6.3-8.2) g/dL Albumin 2.5 L (3.5-5.0) g/dL Urine Appearance (Clear) Urine Protein (Negative) Urine Glucose (UA) (Negative) Urine Blood (Negative) Urine Nitrite (Negative) Ur Leukocyte Esterase (Negative) Urine RBC (0-5) /hpf Urine WBC (0-5) /hpf Urine WBC Clumps (None) /hpf Urine Bacteria (None) /hpf Urine Mucus (None) /hpf Crossmatch Microbiology - Last 24 Hours (Table) 10/05/21 12:08 Urine Culture - Preliminary Urine,Voided
[2021-10-06 15:50] LABS: Anisocytosis Slight; HGB 8.2 gm/dL (11.4-16.0); Hypochromasia Marked; MCH 26.3 pg (25.0-35.0); MCHC 30.3 g/dL (31.0-37.0); Platelet Count 166 k/uL (150-450); Poikilocytosis Marked; RBC 3.11 m/uL (3.80-5.40); RDW 17.6 % (11.5-15.5); WBC 7.4 k/uL (3.8-10.6)
[2021-10-06 16:00] LABS: MCV 86.9 fL (80.0-100.0)
[2021-10-06] MEDS: ATORVASTATIN 10 MG TAB PO SCH (20:09)
--- NOTE | 2021-10-07 01:46 | PN ---
PROGRESS NOTE DATE OF SERVICE: 10/06/2021 REASON FOR FOLLOW UP: Urinary tract infection. INTERVAL HISTORY: The patient is afebrile. The patient is breathing comfortably. The patient denies having any chest pain, shortness of breath or cough. No abdominal pain or diarrhea. EXAMINATION: Blood pressure 134/65, pulse of 78, temperature 97.5. She is 96% on room air. General description is an elderly female lying in bed in no distress. Respiratory system: Unlabored breathing, clear to auscultation anteriorly. Heart S1, S2. Regular rate and rhythm. Abdomen soft, no tenderness. LABS: Hemoglobin 8.8, white count 7.4, creatinine 0.71. Urine showing Gram-negative. DIAGNOSTIC IMPRESSION AND PLAN: Patient with Gram-negative urinary tract infection with recent history of ESBL E coli. Will wait for the culture to finalize, continue with the Invanz and monitor clinical course closely. MMODL / IJN: [id number] /
[2021-10-07] MEDS ORDERED: IV FLUID CONTINUATION 900 ML IV ONE (06:57)
[2021-10-07] MEDS ORDERED: PROPOFOL 10 MG/ML 20 ML VIAL IV ONE (07:33)
--- NOTE | 2021-10-07 07:33 | P.PCN ---
Date of Procedure: 10/07/21 Procedure(s) Performed: Brief history: Patient is a pleasant 81-year-old white female admitted hospital with severe symptomatic microcytic anemia and hemoglobin of 5.3 g/dL. She denies any rectal bleeding. She is hence scheduled for an upper endoscopy as well as colonoscopy to evaluate further. She denies any abdominal pain. No nausea vomiting. Occasional dark stool. She received 2 units of PRBC transition last hemoglobin is 8.5 g/dL. Procedure performed: Esophagogastroduodenoscopy with biopsy Colonoscopy Preoperative diagnosis: Microcytic hypochromic anemia and hemoglobin of 5.3 g/dL Anesthesia: MAC Procedure: After informed consent was obtained from the patient was brought into the endoscopy unit and IV sedation was administered by anesthesia under continuous monitoring. Initially upper endoscopy was done. The Olympus GF 160 video endoscope was inserted inserted into the mouth and esophagus intubated without any difficulty and was gradually advanced into the stomach and duodenum and carefully examined. The bulb and second part of the duodenum appeared normal. Biopsies were done from the duodenum to rule out celiac disease. The scope was then withdrawn into the stomach adequately insufflated with air and upon careful examination the antrum scattered erosions were noted and biopsies were done from this area. The body, cardia and fundus appeared normal. The scope was then withdrawn into the esophagus. The GE junction was located at 35 cm to the incisors. Moderate size hiatal hernia noted. It appeared regular with no erythema erosions or ulcerations. Rest of the esophagus appeared normal. Patient tolerated the procedure well. At this time the patient continued to remain sedation. Initial digital rectal examination was normal. Olympus CF 160 video colonoscope was then inserted into the rectum and gradually advanced to the cecum without any difficulty. Careful examination was performed as the scope was gradually being withdrawn. The prep was excellent. The cecum, ascending colon, transverse colon, descending colon, sigmoid colon and rectum appeared normal. Scattered sigmoid diverticulosis Retroflexion was performed in the rectum and weight 2 internal hemorrhoids were noted. Patient tolerated the procedure well. Impression: 1. Upper endoscopy revealed moderate size hiatal hernia and scattered antral erosions but no evidence of esophagitis or peptic ulcer disease 2. Colonoscopy revealed scattered sigmoid diverticulosis and grade 2 internal hemorrhoids Recommendations: Findings of this examination were discussed with the patient. Diet will be advanced as tolerated. Start iron supplements and monitor CBC frequently an outpatient basis. She was advised to follow with the office in 2 weeks following discharge..
[2021-10-07] MEDS: PANTOPRAZOLE 40 MG/10 ML VIAL IVP SCH ×2 (08:24→20:08)
[2021-10-07] MEDS: METOPROLOL TARTRATE 50 MG TAB PO SCH ×2 (08:25→20:08)
[2021-10-07] MEDS: amLODIPine 5 MG TAB PO SCH (08:25)
[2021-10-07] MEDS: lisinopriL 20 MG TAB PO SCH (08:26)
[2021-10-07] MEDS: ERTAPENEM 1 GM in SODIUM CHLORIDE 0.9% 50 ML IVPB SCH (08:29)
[2021-10-07 09:48] LABS: Anisocytosis Slight; HCT 27.1 % (34.0-46.0); HGB 8.5 gm/dL (11.4-16.0); Hypochromasia Marked; MCH 25.8 pg (25.0-35.0); MCHC 31.4 g/dL (31.0-37.0); Mean Platelet Volume 9.4; Microcytosis Slight; Platelet Count 194 k/uL (150-450); Poikilocytosis Marked; RBC 3.31 m/uL (3.80-5.40); RDW 18.5 % (11.5-15.5); WBC 8.1 k/uL (3.8-10.6)
[2021-10-07 09:59] LABS: ALT 12 U/L (4-34); AST 28 U/L (14-36); African American GFR (CKD) >90 (>60 ml/min/1.73 sqM); Albumin 2.7 g/dL (3.5-5.0); Alkaline Phosphatase 95 U/L (38-126); Anion Gap 8 mmol/L; Blood Urea Nitrogen 10 mg/dL (7-17); Calcium 7.9 mg/dL (8.4-10.2); Carbon Dioxide 25 mmol/L (22-30); Chloride 107 mmol/L (98-107); Glucose 117 mg/dL (74-99); Magnesium 1.7 mg/dL (1.6-2.3); Non-African American GFR(CKD) 80 (>60 ml/min/1.73 sqM); Potassium 3.1 mmol/L (3.5-5.1); Sodium 140 mmol/L (137-145); Total Bilirubin 0.4 mg/dL (0.2-1.3); Total Protein 5.6 g/dL (6.3-8.2)
--- NOTE | 2021-10-07 13:00 | P.PN ---
Subjective Progress Note Date: 10/07/21 Principal diagnosis: Weakness History of Presenting Illness: Patient is a very pleasant 80-year-old female with a past medical history of hypertension, hyperlipidemia, and GERD. She recently underwent an ORIF of left ankle on 08/02/21 and was discharged to [facility] on 08/04/21. Patient was discharged on DVT prophylaxis with aspirin 81 mg twice a day. Patient reports that she was released from the rehab on 10/02/21 and after returning home began feeling very weak with dizziness/lightheadedness. Patient reports she was unable to walk any distance without having to stop and take a break to catch her breath and this progressively worsened so she came to the emergency department today. Patient reports intermittent abdominal cramping/tenderness and history of noted blood in her stool but states she is unsure of whether or not she has been having any recent blood in her stool or dark-colored stool because she has not looked or paid any attention, she does report last bowel movement being Saturday and 10/02/21. Patient does report dizziness, weakness, dyspnea with exertion, and intermittent abdominal pain/cramping. She denied In the emergency department patient underwent extensive evaluation. She was found to have a hemoglobin of 5.2 (previously 10.3), potassium 3.4, and a lactic acid of 2.9. In addition patient found to have UTI with urinalysis turbid positive for protein, glucose, blood, nitrites, leukocytes, and greater than 182 WBCs. Patient had previous UTI in August in which culture was positive for ESBL. Hemoglobin was rechecked and resulted at 5.3. Orders placed for transfusion of 2 units PRBCs and patient was placed on Protonix 40 mg IVP twice daily. Patient admitted under our services with consultation to GI and infectious disease. patient underwent endoscopy and colonoscopy on 10/07/21: Endoscopy reports state patient had moderate sized hiatal hernia and scattered antral erosions with no evidence of esophagitis or peptic ulcer disease and colonoscopy reports scattered sigmoid diverticulosis and grade 2 internal hemorrhoids. Physical exam: Patient seen and fully evaluated at the bedside this morning. She just returned from completing endoscopy and colonoscopy with Dr. Sullivan this morning. Endoscopy reports state patient had moderate sized hiatal hernia and scattered antral erosions with no evidence of esophagitis or peptic ulcer disease and colonoscopy reports scattered sigmoid diverticulosis and grade 2 internal hemorrhoids. Patient currently tolerating clear liquid diet and being advanced to regular diet. She continues to have reports of intermittent epigastric cramping, but states it is currently resolved. She is tolerating oral intake at this time. She denies currently experiencing any headache, lightheadedness, dizziness, chest pain, palpitations, shortness of breath, nausea, or vomiting. Hemoglobin remains stable at 8.5. Patient to continue IV Invanz pending final urine culture results . Vital signs reviewed and stable. General: Nontoxic, no distress and appears stated age. Derm: Skin warm and dry, normal coloration for ethnicity. Head: Atraumatic, normocephalic and symmetric. Eyes: EOMs intact, no lid lag, and anicteric sclera Mouth: no lip lesions, mucus membranes moist Cardiovascular: regular rate and rhythm with normal S1S2, soft systolic murmur p resent, positive posterior tibial pulses bilaterally, and cap refill < 2 seconds . Lungs: Respirations even, regular, and unlabored on room air. Lungs CTA bilaterally, no rhonchi, no rales, no wheezing, and no accessory muscle usage. Abdominal: soft, slight epigastric tenderness upon palpation, no guarding, no appreciable organomegaly Ext: ROM intact. No gross muscle atrophy, no edema, no contractures. Neuro: Speech clear, face symmetrical and CN II-XII grossly intact with no noted focal neuro deficits Psych: Alert and oriented to person, place, time, and situation. Appropriate and pleasant affect. Assessment and Plan of Care: Acute blood loss symptomatic anemia, unclear etiology suspected GI bleed -Status post transfusion of 2 units PRBCs -Gastroenterology following, plans for colonoscopy and endoscopy tomorrow morning.. -CT abdomen and pelvis without contrast negative for acute intra-abdominal process revealing moderate to severe calcified plaque of the aorta extending into branch vessels with a cachectic course seen without greater than 3.0 cm aneurysm. -Monitor H&H every 6 hours x 4 and transfuse as needed for hemoglobin less than 7. -Protonix 40 mg IVP twice daily. -Continued gentle hydration with 0.9% normal saline at 75 mL's per hour. -SCDs for DVT prophylaxis. -Clear liquid diet and NPO at midnight. UTI -Urinalysis turbid positive for protein, glucose, blood, nitrites, leukocytes, and greater than 182 WBCs. Patient had previous UTI back in August in which urine culture was positive for ESBL E. coli -IV antibiotics: Invanz -Infectious disease following -Follow up on current urine culture. -Bladder management Hypertension Monitor vital signs and continue daily medication regimen with amlodipine/benazepril and metoprolol. Hyperlipidemia Continue daily medication regimen with atorvastatin. GERD Protonix 40 mg IVP twice daily CODE STATUS: Full code DVT prophylaxis: SCDs Discussed with: Patient, RN, and pt's daughter Christy...Pt daughter states that she has meals on wheels set up for her once she is discharged. Anticipated discharge date: Clinical course to determine Anticipated discharge place: Home A total of 45 minutes was spent on the care of this complex patient more than 50% of the time was spent in counseling and care coordination. Christy (daughter): [phone] Castillo (son) : [phone] Objective - Vital Signs Vital signs: Vital Signs Temp 98.2 F 10/07/21 04:00 Pulse 66 10/07/21 04:00 Resp 16 10/07/21 04:00 BP 120/56 10/07/21 04:00 Pulse Ox 98 10/07/21 04:00 Intake & Output 10/06/21 10/07/21 10/07/21 18:59 06:59 18:59 Intake Total 360 318 Output Total 360 Balance 0 318 Weight 63.5 kg Intake: IV 200 Oral 360 118 Output: Urine 360 Other: Voiding Method External Catheter # Voids 1 # Bowel Movements 1 - Labs CBC & Chem 7: 10/07/21 08:38 10/07/21 08:38 Labs: Abnormal Lab Results - Last 24 Hours (Table) 10/06/21 10/07/21 10/07/21 Range/Units 14:45 08:38 08:38 RBC 3.11 L 3.31 L (3.80-5.40) m/uL Hgb 8.2 L 8.5 L (11.4-16.0) gm/dL Hct 27.0 L 27.1 L (34.0-46.0) % MCHC 30.3 L (31.0-37.0) g/dL RDW 17.6 H 18.5 H (11.5-15.5) % Potassium 3.1 L (3.5-5.1) mmol/L Glucose 117 H (74-99) mg/dL Calcium 7.9 L (8.4-10.2) mg/dL Total Protein 5.6 L (6.3-8.2) g/dL Albumin 2.7 L (3.5-5.0) g/dL Microbiology - Last 24 Hours (Table) 10/05/21 12:08 Urine Culture - Preliminary Urine,Voided Gram Neg Bacilli
[2021-10-07] MEDS: SODIUM CHLORIDE 0.9% 1,000 ML IV SCH (16:17)
[2021-10-07] MEDS: POTASSIUM CHLORIDE 10 MEQ in WATER FOR INJECTION 1 100ML.BAG IVPB SCH ×2 (16:35→19:07)
[2021-10-07] MEDS: ATORVASTATIN 10 MG TAB PO SCH (20:08)
[2021-10-07] MEDS: MAGNESIUM SULFATE-D5W PMX 1 GM in DEXTROSE/WATER 1 100ML.BAG IVPB SCH ×2 (21:23→22:30)
--- NOTE | 2021-10-07 23:29 | PN ---
PROGRESS NOTE DATE OF SERVICE: 10/07/2021 REASON FOR FOLLOWUP: ESBL E coli urinary tract infection. INTERVAL HISTORY: Patient is afebrile. The patient is feeling better. Breathing comfortably. Denies any chest pain, shortness of breath or cough. No abdominal pain or diarrhea. PHYSICAL EXAMINATION: Blood pressure 112/55 with a pulse of 70, temperature is 97.4. She is 97% on room air. General description is an elderly female lying in bed in no distress. Respiratory system: Unlabored breathing, clear to auscultation anteriorly. Heart S1, S2. Regular rate and rhythm. Abdomen soft. No tenderness. Extremities: No edema of the feet. LABS: Hemoglobin 8.5, white count 8.1, creatinine 0.70. DIAGNOSTIC IMPRESSION AND PLAN: Patient with ESBL E coli urinary tract infection, possible cystitis. Clinically responded to the Invanz to continue while monitoring clinical course closely. Continue supportive care. MMODL / IJN: [id number] /
[2021-10-08] MEDS ORDERED: POTASSIUM CHLORIDE 10 MEQ in WATER FOR INJECTION 1 100ML.BAG IVPB ONE ×2 (00:18→01:25)
[2021-10-08] MEDS ORDERED: POTASSIUM CHLORIDE 10 MEQ in WATER FOR INJECTION 1 100ML.BAG IVPB STA (00:20)
[2021-10-08] MEDS: POTASSIUM CHLORIDE 10 MEQ in WATER FOR INJECTION 1 100ML.BAG IVPB SCH (00:22)
[2021-10-08 08:40] LABS: Anisocytosis Slight; HCT 26.6 % (34.0-46.0); HGB 8.3 gm/dL (11.4-16.0); Hypochromasia Marked; MCH 25.6 pg (25.0-35.0); MCHC 31.1 g/dL (31.0-37.0); MCV 82.4 fL (80.0-100.0); Mean Platelet Volume 9.5; Microcytosis Slight; Platelet Count 176 k/uL (150-450); Poikilocytosis Marked; RBC 3.23 m/uL (3.80-5.40); RDW 19.1 % (11.5-15.5); WBC 7.1 k/uL (3.8-10.6)
[2021-10-08 08:58] LABS: ALT 13 U/L (4-34); AST 26 U/L (14-36); African American GFR (CKD) >90 (>60 ml/min/1.73 sqM); Albumin 2.5 g/dL (3.5-5.0); Alkaline Phosphatase 89 U/L (38-126); Anion Gap 7 mmol/L; Blood Urea Nitrogen 7 mg/dL (7-17); Calcium 7.8 mg/dL (8.4-10.2); Carbon Dioxide 21 mmol/L (22-30); Chloride 110 mmol/L (98-107); Glucose 112 mg/dL (74-99); Magnesium 2.1 mg/dL (1.6-2.3); Non-African American GFR(CKD) 80 (>60 ml/min/1.73 sqM); Potassium 3.7 mmol/L (3.5-5.1); Sodium 138 mmol/L (137-145); Total Bilirubin 0.2 mg/dL (0.2-1.3); Total Protein 5.4 g/dL (6.3-8.2)
[2021-10-08] MEDS: ERTAPENEM 1 GM in SODIUM CHLORIDE 0.9% 50 ML IVPB SCH (09:14)
[2021-10-08] MEDS: PANTOPRAZOLE 40 MG/10 ML VIAL IVP SCH ×2 (09:14→20:20)
[2021-10-08] MEDS: amLODIPine 5 MG TAB PO SCH (09:14)
[2021-10-08] MEDS: lisinopriL 20 MG TAB PO SCH (09:14)
[2021-10-08] MEDS: METOPROLOL TARTRATE 50 MG TAB PO SCH ×2 (09:14→20:20)
--- NOTE | 2021-10-08 12:21 | P.PN ---
Subjective Progress Note Date: 10/08/21 Principal diagnosis: Weakness History of Presenting Illness: Patient is a very pleasant 80-year-old female with a past medical history of hypertension, hyperlipidemia, and GERD. She recently underwent an ORIF of left ankle on 08/02/21 and was discharged to [facility] on 08/04/21. Patient was discharged on DVT prophylaxis with aspirin 81 mg twice a day. Patient reports that she was released from the rehab on 10/02/21 and after returning home began feeling very weak with dizziness/lightheadedness. Patient reports she was unable to walk any distance without having to stop and take a break to catch her breath and this progressively worsened so she came to the emergency department today. Patient reports intermittent abdominal cramping/tenderness and history of noted blood in her stool but states she is unsure of whether or not she has been having any recent blood in her stool or dark-colored stool because she has not looked or paid any attention, she does report last bowel movement being Saturday and 10/02/21. Patient does report dizziness, weakness, dyspnea with exertion, and intermittent abdominal pain/cramping. She denied In the emergency department patient underwent extensive evaluation. She was found to have a hemoglobin of 5.2 (previously 10.3), potassium 3.4, and a lactic acid of 2.9. In addition patient found to have UTI with urinalysis turbid positive for protein, glucose, blood, nitrites, leukocytes, and greater than 182 WBCs. Patient had previous UTI in August in which culture was positive for ESBL. Hemoglobin was rechecked and resulted at 5.3. Orders placed for transfusion of 2 units PRBCs and patient was placed on Protonix 40 mg IVP twice daily. Patient admitted under our services with consultation to GI and infectious disease. patient underwent endoscopy and colonoscopy on 10/07/21: Endoscopy reports state patient had moderate sized hiatal hernia and scattered antral erosions with no evidence of esophagitis or peptic ulcer disease and colonoscopy reports scattered sigmoid diverticulosis and grade 2 internal hemorrhoids. Physical exam: Patient seen and fully evaluated at the bedside this morning. She was resting in bed, appears comfortable. She denied having any complaints or concerns at this time including headache, lightheadedness, dizziness, chest pain, palpitations, shortness of breath, pain, nausea, or vomiting. Hemoglobin stable at 8.3. Corrected calcium 9.0. Patient tolerating regular diet. Patient to continue to receive IV Invanz at this time. Urine culture positive for ESBL E. coli. Vital signs reviewed and stable. General: Nontoxic, no distress and appears stated age. Derm: Skin warm and dry, normal coloration for ethnicity. Head: Atraumatic, normocephalic and symmetric. Eyes: EOMs intact, no lid lag, and anicteric sclera Mouth: no lip lesions, mucus membranes moist Cardiovascular: regular rate and rhythm with normal S1S2, soft systolic murmur present, positive posterior tibial pulses bilaterally, and cap refill < 2 secon ds. Lungs: Respirations even, regular, and unlabored on room air. Lungs CTA bilaterally, no rhonchi, no rales, no wheezing, and no accessory muscle usage. Abdominal: soft, nontender upon palpation, no guarding, no appreciable organomegaly Ext: ROM intact. No gross muscle atrophy, no edema, no contractures. Neuro: Speech clear, face symmetrical and CN II-XII grossly intact with no noted focal neuro deficits Psych: Alert and oriented to person, place, time, and situation. Appropriate and pleasant affect. Assessment and Plan of Care: Acute blood loss symptomatic anemia, unclear etiology suspected GI bleed -Status post transfusion of 2 units PRBCs -Gastroenterology following, plans for colonoscopy and endoscopy tomorrow morning.. -CT abdomen and pelvis without contrast negative for acute intra-abdominal process revealing moderate to severe calcified plaque of the aorta extending into branch vessels with a cachectic course seen without greater than 3.0 cm aneurysm. -Monitor H&H every 6 hours x 4 and transfuse as needed for hemoglobin less than 7. -Protonix 40 mg IVP twice daily. -Continued gentle hydration with 0.9% normal saline at 75 mL's per hour. -SCDs for DVT prophylaxis. -Clear liquid diet and NPO at midnight. UTI -IV antibiotics: Invanz -Infectious disease following -Urine culture positive for ESBL E. coli. -Bladder management Hypertension Monitor vital signs and continue daily medication regimen with amlodipine/benazepril and metoprolol. Hyperlipidemia Continue daily medication regimen with atorvastatin. GERD Protonix 40 mg IVP twice daily CODE STATUS: Full code DVT prophylaxis: SCDs Discussed with: Patient and RN Anticipated discharge date: Possibly tomorrow Anticipated discharge place: SNF A total of 45 minutes was spent on the care of this complex patient more than 50% of the time was spent in counseling and care coordination. Christy (daughter): [phone] Castillo (son) : [phone] Objective - Vital Signs Vital signs: Vital Signs Temp 97.9 F 10/08/21 08:00 Pulse 66 10/08/21 08:00 Resp 18 10/08/21 08:00 BP 123/60 10/08/21 08:00 Pulse Ox 98 10/08/21 08:00 Intake & Output 10/07/21 10/08/21 10/08/21 18:59 06:59 18:59 Intake Total 1004 118 Output Total 350 600 Balance 654 -600 118 Intake: IV 200 Intake, IV Titration 450 Amount Sodium Chloride 0.9% 1, 450 000 ml @ 75 mls/hr IV . [id number] [facility] Rx#:[id number] Oral 354 118 Output: Urine 350 600 Other: Voiding Method External Catheter External Catheter - Labs CBC & Chem 7: 10/08/21 08:14 10/08/21 08:14 Labs: Abnormal Lab Results - Last 24 Hours (Table) 10/08/21 10/08/21 Range/Units 08:14 08:14 RBC 3.23 L (3.80-5.40) m/uL Hgb 8.3 L (11.4-16.0) gm/dL Hct 26.6 L (34.0-46.0) % RDW 19.1 H (11.5-15.5) % Chloride 110 H (98-107) mmol/L Carbon Dioxide 21 L (22-30) mmol/L Glucose 112 H (74-99) mg/dL Calcium 7.8 L (8.4-10.2) mg/dL Total Protein 5.4 L (6.3-8.2) g/dL Albumin 2.5 L (3.5-5.0) g/dL Microbiology - Last 24 Hours (Table) 10/05/21 12:08 Urine Culture - Final Urine,Voided Escherichia coli
--- NOTE | 2021-10-08 17:45 | PN ---
PROGRESS NOTE DATE OF SERVICE: 10/08/2021 REASON FOR FOLLOWUP: ESBL E coli urinary tract infection. INTERVAL HISTORY: The patient is afebrile. The patient is feeling better, breathing comfortably. Denies having any chest pain, shortness of breath or cough. No abdominal pain or diarrhea. No urinary symptoms. PHYSICAL EXAMINATION: Blood pressure 127/58 with a pulse of 60, temperature 98.1. She is 99% on room air. General description is an elderly female lying in bed in no distress. Respiratory system: Unlabored breathing. Clear to auscultation anteriorly. Heart S1, S2. Regular rate and rhythm. Abdomen soft, no tenderness. LABS: Hemoglobin is 8.3, white count 7.1, creatinine is 0.70. DIAGNOSTIC IMPRESSION AND PLAN: Patient with ESBL Escherichia coli urinary tract infection, possible cystitis. Clinically not behaving as a deep infection. Patient is on Invanz; to continue. We will check a repeat urine culture. If it is negative, will not need antibiotic on discharge. Continue supportive care. MMODL / IJN: [id number] /
[2021-10-08] MEDS: ATORVASTATIN 10 MG TAB PO SCH (20:20)
[2021-10-09 02:40] LABS: Mucus,Urine Few /hpf; RBC,Urine >182 /hpf (0-5); WBC,Urine >182 /hpf (0-5)
[2021-10-09 02:48] LABS: Appearance,Urine Turbid (Clear); Color,Urine Yellow; Glucose,Urine (UA) Negative (Negative); Ketones,Urine Negative (Negative); PH, Urine 5.5 (5.0-8.0); Protein,Urine Trace (Negative); Specific Gravity,Urine 1.012 (1.001-1.035)
[2021-10-09 02:49] LABS: Bilirubin,Urine Negative (Negative); Blood,Urine Trace (Negative); Leukocyte Esterase,Urine Large (Negative); Nitrite,Urine Negative (Negative); Urobilinogen,Urine <2.0 mg/dL (<2.0)
[2021-10-09 08:01] LABS: ALT 12 U/L (4-34); African American GFR (CKD) >90 (>60 ml/min/1.73 sqM); Albumin 2.5 g/dL (3.5-5.0); Anion Gap 4 mmol/L; Blood Urea Nitrogen 9 mg/dL (7-17); Calcium 7.9 mg/dL (8.4-10.2); Carbon Dioxide 24 mmol/L (22-30); Chloride 109 mmol/L (98-107); Glucose 88 mg/dL (74-99); Non-African American GFR(CKD) 80 (>60 ml/min/1.73 sqM); Sodium 137 mmol/L (137-145); Total Bilirubin 0.5 mg/dL (0.2-1.3); Total Protein 5.6 g/dL (6.3-8.2)
[2021-10-09 08:07] LABS: Potassium 3.9 mmol/L (3.5-5.1)
[2021-10-09 08:08] LABS: AST 48 U/L (14-36); Alkaline Phosphatase 84 U/L (38-126); Magnesium 1.9 mg/dL (1.6-2.3)
[2021-10-09 08:53] LABS: Anisocytosis Slight; HCT 29.7 % (34.0-46.0); HGB 8.8 gm/dL (11.4-16.0); Hypochromasia Marked; MCH 25.3 pg (25.0-35.0); MCHC 29.7 g/dL (31.0-37.0); MCV 85.1 fL (80.0-100.0); Mean Platelet Volume 9.9; Microcytosis Slight; Platelet Count 180 k/uL (150-450); Poikilocytosis Marked; RBC 3.49 m/uL (3.80-5.40); RDW 19.8 % (11.5-15.5); WBC 6.8 k/uL (3.8-10.6)
[2021-10-09] MEDS: METOPROLOL TARTRATE 50 MG TAB PO SCH ×2 (09:41→20:29)
[2021-10-09] MEDS: ERTAPENEM 1 GM in SODIUM CHLORIDE 0.9% 50 ML IVPB SCH (09:41)
[2021-10-09] MEDS: lisinopriL 20 MG TAB PO SCH (09:41)
[2021-10-09] MEDS: amLODIPine 5 MG TAB PO SCH (09:41)
[2021-10-09] MEDS: PANTOPRAZOLE 40 MG/10 ML VIAL IVP SCH ×2 (09:41→20:29)
--- NOTE | 2021-10-09 12:08 | P.PN ---
Subjective Progress Note Date: 10/09/21 Principal diagnosis: Weakness History of Presenting Illness: Patient is a very pleasant 80-year-old female with a past medical history of hypertension, hyperlipidemia, and GERD. She recently underwent an ORIF of left ankle on 08/02/21 and was discharged to [facility] on 08/04/21. Patient was discharged on DVT prophylaxis with aspirin 81 mg twice a day. Patient reports that she was released from the rehab on 10/02/21 and after returning home began feeling very weak with dizziness/lightheadedness. Patient reports she was unable to walk any distance without having to stop and take a break to catch her breath and this progressively worsened so she came to the emergency department today. Patient reports intermittent abdominal cramping/tenderness and history of noted blood in her stool but states she is unsure of whether or not she has been having any recent blood in her stool or dark-colored stool because she has not looked or paid any attention, she does report last bowel movement being Saturday and 10/02/21. Patient does report dizziness, weakness, dyspnea with exertion, and intermittent abdominal pain/cramping. She denied In the emergency department patient underwent extensive evaluation. She was found to have a hemoglobin of 5.2 (previously 10.3), potassium 3.4, and a lactic acid of 2.9. In addition patient found to have UTI with urinalysis turbid positive for protein, glucose, blood, nitrites, leukocytes, and greater than 182 WBCs. Patient had previous UTI in August in which culture was positive for ESBL. Hemoglobin was rechecked and resulted at 5.3. Orders placed for transfusion of 2 units PRBCs and patient was placed on Protonix 40 mg IVP twice daily. Patient admitted under our services with consultation to GI and infectious disease. patient underwent endoscopy and colonoscopy on 10/07/21: Endoscopy reports state patient had moderate sized hiatal hernia and scattered antral erosions with no evidence of esophagitis or peptic ulcer disease and colonoscopy reports scattered sigmoid diverticulosis and grade 2 internal hemorrhoids. Physical exam: Patient seen and fully evaluated at the bedside this morning. She was resting in bed, appears comfortable. She denied having any complaints or concerns at this time including headache, lightheadedness, dizziness, chest pain, palpitations, shortness of breath, pain, nausea, or vomiting. Her repeat urinalysis remains positive for > 182 RBCs and > 182 WBCs. Hemoglobin remains stable at 8.8 and WBC count remains normal at 6.8. Patient remains on Invanz for ESBL UTI and has had no noted fevers throughout hospitalization. She continues to tolerate a regular diet. Order placed for PICC line to set up for need for IV antibiotics upon discharge. Vital signs reviewed and stable. General: Nontoxic, no distress and appears stated age. Derm: Skin warm and dry, normal coloration for ethnicity. Head: Atraumatic, normocephalic and symmetric. Eyes: EOMs intact, no lid lag, and anicteric sclera Mouth: no lip lesions, mucus membranes moist Cardiovascular: regular rate and rhythm with normal S1S2, soft systolic murmur present, positive posterior tibial pulses bilaterally, and cap refill < 2 seconds. Lungs: Respirations even, regular, and unlabored on room air. Lungs CTA bilaterally, no rhonchi, no rales, no wheezing, and no accessory muscle usage. Abdominal: soft, nontender upon palpation, no guarding, no appreciable organome florin Ext: ROM intact. No gross muscle atrophy, no edema, no contractures. Neuro: Speech clear, face symmetrical and CN II-XII grossly intact with no noted focal neuro deficits Psych: Alert and oriented to person, place, time, and situation. Appropriate and pleasant affect. Assessment and Plan of Care: Acute blood loss symptomatic anemia, unclear etiology suspected GI bleed, hemoglobin stable status post transfusion 2 units PRBCs -Status post transfusion of 2 units PRBCs -Gastroenterology following -CT abdomen and pelvis without contrast negative for acute intra-abdominal process revealing moderate to severe calcified plaque of the aorta extending into branch vessels with a cachectic course seen without greater than 3.0 cm aneurysm. -Endoscopy reports state patient had moderate sized hiatal hernia and scattered antral erosions with no evidence of esophagitis or peptic ulcer disease and colonoscopy reports scattered sigmoid diverticulosis and grade 2 internal hemorrhoids. -Monitor H&H every 6 hours x 4 and transfuse as needed for hemoglobin less than 7. -Protonix 40 mg IVP twice daily. -SCDs for DVT prophylaxis. ESBL E. coli UTI -IV antibiotics: Invanz -Infectious disease following -Bladder management Hypertension Monitor vital signs and continue daily medication regimen with amlodipine/benazepril and metoprolol. Hyperlipidemia Continue daily medication regimen with atorvastatin. GERD Protonix 40 mg IVP twice daily CODE STATUS: Full code DVT prophylaxis: SCDs Discussed with: Patient and RN Anticipated discharge date: Possibly tomorrow Anticipated discharge place: SNF A total of 45 minutes was spent on the care of this complex patient more than 50% of the time was spent in counseling and care coordination. Christy (daughter): [phone] Castillo (son) : [phone] Objective - Vital Signs Vital signs: Vital Signs Temp 98.2 F 10/09/21 09:36 Pulse 66 10/09/21 09:36 Resp 16 10/09/21 09:36 BP 124/59 10/09/21 09:36 Pulse Ox 97 10/09/21 09:36 Intake & Output 10/08/21 10/09/21 10/09/21 18:59 06:59 18:59 Intake Total 478 180 Output Total 750 200 Balance -272 -200 180 Weight 64.6 kg Intake: Oral 478 180 Output: Urine 750 200 Other: Voiding Method External Catheter External Catheter # Voids 1 - Labs CBC & Chem 7: 10/09/21 08:33 10/09/21 06:38 Labs: Abnormal Lab Results - Last 24 Hours (Table) 10/08/21 10/09/21 10/09/21 Range/Units 18:00 06:38 08:33 RBC 3.49 L (3.80-5.40) m/uL Hgb 8.8 L (11.4-16.0) gm/dL Hct 29.7 L (34.0-46.0) % MCHC 29.7 L (31.0-37.0) g/dL RDW 19.8 H (11.5-15.5) % Chloride 109 H (98-107) mmol/L Calcium 7.9 L (8.4-10.2) mg/dL AST 48 H (14-36) U/L Total Protein 5.6 L (6.3-8.2) g/dL Albumin 2.5 L (3.5-5.0) g/dL Urine Appearance Turbid H (Clear) Urine RBC >182 H (0-5) /hpf Urine WBC >182 H (0-5) /hpf Urine WBC Clumps Many H (None) /hpf Urine Mucus Few H (None) /hpf Microbiology - Last 24 Hours (Table) 12/16/21 12:08 Urine Culture - Final Urine,Voided Escherichia coli 10/08/21 18:00 Urine Culture - Preliminary Urine,Voided
[2021-10-09] MEDS: ATORVASTATIN 10 MG TAB PO SCH (20:29)
--- NOTE | 2021-10-09 23:04 | PN ---
PROGRESS NOTE DATE OF SERVICE: 10/09/2021 REASON FOR FOLLOWUP: ESBL E. coli urinary tract infection. INTERVAL HISTORY: The patient is afebrile. Patient is breathing comfortably. The patient denies having any chest pain, shortness of breath or cough. No abdominal pain. No diarrhea. PHYSICAL EXAMINATION: Her blood pressure is 115/76, pulse of 66, temperature 98.0. She is 96% on room air. General description is an elderly female lying in bed in no distress. Respiratory system: Unlabored breathing: Heart S1, S2. Regular rate and rhythm. Abdomen soft, no tenderness. LABS: Hemoglobin 8.8, white count 6.8, creatinine 0.70. Repeat urine is still positive. DIAGNOSTIC IMPRESSION AND PLAN: Patient with ESBL E coli urinary tract infection. The patient did have a CT of abdomen and pelvis this admission and did not show any structure abnormality to the kidneys except there was evidence of 3 mm calculus right kidney. No hydronephrosis or with positive UA will get a midline to continue with IV Invanz 1 gram daily for another week and close outpatient followup. Continue supportive care. MMODL / IJN: [id number] /
[2021-10-10 08:50] LABS: Anisocytosis Slight; HCT 31.2 % (34.0-46.0); HGB 9.6 gm/dL (11.4-16.0); Hypochromasia Marked; MCH 25.3 pg (25.0-35.0); MCHC 30.6 g/dL (31.0-37.0); MCV 82.5 fL (80.0-100.0); Mean Platelet Volume 8.4; Microcytosis Slight; Platelet Count 183 k/uL (150-450); Poikilocytosis Marked; RBC 3.78 m/uL (3.80-5.40); RDW 19.2 % (11.5-15.5); WBC 7.3 k/uL (3.8-10.6)
[2021-10-10 09:11] LABS: ALT 13 U/L (4-34); AST 29 U/L (14-36); African American GFR (CKD) >90 (>60 ml/min/1.73 sqM); Albumin 2.9 g/dL (3.5-5.0); Alkaline Phosphatase 102 U/L (38-126); Anion Gap 5 mmol/L; Blood Urea Nitrogen 9 mg/dL (7-17); Calcium 8.3 mg/dL (8.4-10.2); Carbon Dioxide 25 mmol/L (22-30); Chloride 107 mmol/L (98-107); Glucose 104 mg/dL (74-99); Magnesium 1.8 mg/dL (1.6-2.3); Non-African American GFR(CKD) 81 (>60 ml/min/1.73 sqM); Potassium 3.8 mmol/L (3.5-5.1); Sodium 137 mmol/L (137-145); Total Bilirubin 0.5 mg/dL (0.2-1.3); Total Protein 6.2 g/dL (6.3-8.2)
[2021-10-10 09:26] VITALS: TEMP 97.8
[2021-10-10] MEDS: ERTAPENEM 1 GM in SODIUM CHLORIDE 0.9% 50 ML IVPB SCH (09:27)
[2021-10-10] MEDS: amLODIPine 5 MG TAB PO SCH (09:27)
[2021-10-10] MEDS: lisinopriL 20 MG TAB PO SCH (09:27)
[2021-10-10] MEDS: METOPROLOL TARTRATE 50 MG TAB PO SCH (09:27)
[2021-10-10] MEDS: PANTOPRAZOLE 40 MG/10 ML VIAL IVP SCH (09:28)
[2021-10-10 12:39] VITALS: BP 128/70; PULSE 60; RESP 15
--- NOTE | 2021-10-10 12:41 | PN ---
PROGRESS NOTE DATE OF SERVICE: 10/10/2021 REASON FOR FOLLOWUP: ESBL E coli urinary tract infection. INTERVAL HISTORY: The patient is afebrile. The patient is breathing comfortably. The patient denies having any chest pain, shortness of breath. Occasional cough. No abdominal pain or diarrhea. PHYSICAL EXAMINATION: Her blood pressure is 143/73 with a pulse of 57, temperature 97.8. She is 99% on room air. General description is an elderly female up in the chair in no distress. Respiratory system: Unlabored breathing. Clear to auscultation anteriorly. Heart S1, S2. Regular rate and rhythm. Abdomen soft, no tenderness. LABS: Hemoglobin 9.6, white count 7.3, creatinine 0.63. DIAGNOSTIC IMPRESSION AND PLAN: Patient with ESBL Escherichia coli urinary tract infection. Repeat urine is still positive. Waiting from midline placement for continuation of IV Invanz for another 7- 10 days to finish her course of therapy and close outpatient followup. MMODL / IJN: [id number] /
--- NOTE | 2021-10-10 13:20 | P.DS ---
Providers Date of admission: 10/05/21 14:01 Expected date of discharge: 10/10/21 Attending physician: Sravan Herndon MD Consults: 10/05/21 14:02 Consult Physician Routine Consulting Provider: Zofia Mckeon Consult Reason/Comments: UTI Do you want consulting provider notified?: Yes Consult Physician Routine Consulting Provider: Sugar Sullivan Consult Reason/Comments: Anemia Do you want consulting provider notified?: Yes Primary care physician: Sudhakar Ferreira MD Hospital Course: 80-year-old female with a past medical history of hypertension, hyperlipidemia, and GERD. She recently underwent an ORIF of left ankle on 08/02/21 and was discharged to [facility] on 08/04/21. Patient was discharged on DVT prophylaxis with aspirin 81 mg twice a day. Patient reports that she was released from the rehab on 10/02/21 and after returning home began feeling very weak with dizziness/lightheadedness. Patient reports she was unable to walk any distance without having to stop and take a break to catch her breath and this progressively worsened so she came to the emergency department. Patient reports intermittent abdominal cramping/tenderness and history of noted blood in her stool but states she is unsure of whether or not she has been having any recent blood in her stool or dark-colored stool because she has not looked or paid any attention. Patient does report dizziness, weakness, dyspnea with exertion, and intermittent abdominal pain/cramping. In the emergency department patient underwent extensive evaluation. She was fo und to have a hemoglobin of 5.2 (previously 10.3), potassium 3.4, and a lactic acid of 2.9. In addition patient found to have UTI with urinalysis turbid positive for protein, glucose, blood, nitrites, leukocytes, and greater than 182 WBCs. Patient had previous UTI in August in which culture was positive for ESBL. Hemoglobin was rechecked and resulted at 5.3. Patient was admitted to the hospital, TRANSFUSED 2 units PRBCs and patient was placed on Protonix 40 mg IVP twice daily. She was evaluated by GI who did upper and lower endoscopies. EGD showed hiatal hernia and colonoscopy showed some internal hemorrhoids. No active bleeding was found. CT abdomen and pelvis without contrast negative for acute intra-abdominal process revealing moderate to severe calcified plaque of the aorta extending into branch vessels with a cachectic course seen without greater than 3.0 cm aneurysm. For ESBL UTI which was treated with Invanz. Patient is able was consulted as well and it was recommended that she continue this treatment for 1 more week after discharge. The midline was placed on purpose. She will be discharged back to the alf in stable condition. Time for discharge 35 min Patient Condition at Discharge: Stable Plan - Discharge Summary Discharge Rx Participant: No New Discharge Prescriptions: New Ertapenem [INVanz] 1 gm IVPB DAILY 7 Days #7 each Continue amLODIPine BESYLATE/BENAZEPRIL [Lotrel 5-20 MG] 1 cap PO DAILY Metoprolol Tartrate [Lopressor] 50 mg PO BID Dicyclomine [Bentyl] 10 mg PO TID Atorvastatin [Lipitor] 10 mg PO HS Ergocalciferol [Vitamin D2 (1250 Mcg = 09417 Iu)] 1,250 mcg PO WORKMAN Discharge Medication List Atorvastatin [Lipitor] 10 mg PO HS 07/04/17 [History] Dicyclomine [Bentyl] 10 mg PO TID 07/04/17 [History] Metoprolol Tartrate [Lopressor] 50 mg PO BID 07/04/17 [History] amLODIPine BESYLATE/BENAZEPRIL [Lotrel 5-20 MG] 1 cap PO DAILY 07/04/17 [History] Ergocalciferol [Vitamin D2 (1250 Mcg = 08384 Iu)] 1,250 mcg PO WORKMAN 10/05/21 [History] Ertapenem [INVanz] 1 gm IVPB DAILY 7 Days #7 each 10/10/21 [Rx] Follow up Appointment(s)/Referral(s): Sudhakar Ferreira MD [Primary Care Provider] - 1-2 days [facility], [NON-STAFF] -
== END 2021-10-10 17:12 | DRG 812 ==
LOC: EC 10:45 → 3SCARD 14:01
PROVIDERS: ADMIT Internal Medicine; ATTEND Internal Medicine
PROC: 30233N1 Transfusion of Nonautologous Red Blood Cells into Peripheral Vein, Percutaneous Approach (ICD-10-PCS; principal; 2021-10-05)
PROC: 0DB98ZX Excision of Duodenum, Via Natural or Artificial Opening Endoscopic, Diagnostic (ICD-10-PCS; 2021-10-07)
PROC: 0DB78ZX Excision of Stomach, Pylorus, Via Natural or Artificial Opening Endoscopic, Diagnostic (ICD-10-PCS; 2021-10-07)
PROC: 0DJD8ZZ Inspection of Lower Intestinal Tract, Via Natural or Artificial Opening Endoscopic (ICD-10-PCS; 2021-10-07)
PROC: 05HB33Z Insertion of Infusion Device into Right Basilic Vein, Percutaneous Approach (ICD-10-PCS; 2021-10-10 12:30)
DX: D50.9 Iron deficiency anemia, unspecified (principal); N39.0 Urinary tract infection, site not specified; Z16.12 Extended spectrum beta lactamase (ESBL) resistance; B96.20 Unspecified Escherichia coli [E. coli] as the cause of diseases classified elsewhere; E11.9 Type 2 diabetes mellitus without complications; Z20.822 Contact with and (suspected) exposure to COVID-19; E78.5 Hyperlipidemia, unspecified; I10 Essential (primary) hypertension; K21.9 Gastro-esophageal reflux disease without esophagitis; K44.9 Diaphragmatic hernia without obstruction or gangrene; K57.30 Diverticulosis of large intestine without perforation or abscess without bleeding; K64.1 Second degree hemorrhoids; N20.0 Calculus of kidney; S62.102D Fracture of unspecified carpal bone, left wrist, subsequent encounter for fracture with routine healing; Z79.899 Other long term (current) drug therapy; Z90.49 Acquired absence of other specified parts of digestive tract; Z87.19 Personal history of other diseases of the digestive system; Z87.891 Personal history of nicotine dependence; Z87.440 Personal history of urinary (tract) infections; Z86.19 Personal history of other infectious and parasitic diseases; Z98.890 Other specified postprocedural states; Z88.2 Allergy status to sulfonamides; Z88.0 Allergy status to penicillin; Z80.9 Family history of malignant neoplasm, unspecified
CPT/HCPCS: 36410; 36415; 43239; 45378; 74176; 76937; 80053; 81001; 83605; 83735; 84484; 85025; 85027; 85610; 85730; 86850; 86900; 86901; 86920; 87077; 87086; 87186; 87635; 88305; 88342; 93005; 94760; 99285

== ENCOUNTER 2021-11-25 16:11 | Inpatient (IN) | payer MEDICARE, BC ==
[2021-11-25 16:45] LABS: Anisocytosis Moderate; Basophils % (A) 0 %; Eosinophils % (A) 0 %; HCT 34.6 % (34.0-46.0); HGB 10.6 gm/dL (11.4-16.0); Hypochromasia Marked; Lymphocytes # (A) 1.2 k/uL (1.0-4.8); Lymphocytes % (A) 13 %; MCHC 30.5 g/dL (31.0-37.0); MCV 81.9 fL (80.0-100.0); Microcytosis Moderate; Monocytes # (A) 0.4 k/uL (0-1.0); Monocytes % (A) 4 %; Neutrophils # (A) 7.2 k/uL (1.3-7.7); Neutrophils % (A) 80 %; Platelet Count 189 k/uL (150-450); RBC 4.23 m/uL (3.80-5.40); RDW 21.4 % (11.5-15.5)
[2021-11-25 16:53] LABS: Albumin 3.4 g/dL (3.5-5.0); Calcium 8.9 mg/dL (8.4-10.2); Potassium 4.3 mmol/L (3.5-5.1); Total Bilirubin 0.4 mg/dL (0.2-1.3); Total Protein 6.9 g/dL (6.3-8.2)
[2021-11-25 17:16] LABS: INR 1.1 (<1.2); Prothrombin Time 11.5 sec (9.0-12.0)
[2021-11-25 17:23] LABS: Partial Thromboplastin Time 22.2 sec (22.0-30.0)
--- NOTE | 2021-11-25 20:06 | ED ---
GI Bleed HPI - General Chief complaint: GI Bleed Stated complaint: Blood in stool Time Seen by Provider: 11/25/21 16:17 Source: patient, EMS Mode of arrival: EMS Limitations: no limitations - History of Present Illness Initial comments: Yasmeen is an 81yo F was recently admitted to this hospital for acute anemia requiring transfusion. Patient returns today or GI bleeding. Patient reports that this morning she had a firm bowel movement and afterwards noted some bright red blood per rectum. Patient does report some abdominal cramping with this bloody stools. Patient is not on any anticoagulants but did take aspirin this morning. - Related Data Home Medications Medication Instructions Recorded Confirmed Atorvastatin [Lipitor] 10 mg PO HS 07/04/17 11/25/21 Dicyclomine [Bentyl] 10 mg PO TID PRN 07/04/17 11/25/21 Metoprolol Tartrate [Lopressor] 50 mg PO BID 07/04/17 11/25/21 amLODIPine BESYLATE/BENAZEPRIL 1 cap PO DAILY 07/04/17 11/25/21 [Lotrel 5-20 MG] Ergocalciferol [Vitamin D2 (1250 1,250 mcg PO WORKMAN 10/05/21 11/25/21 Mcg = 57684 Iu)] Aspirin EC [Ecotrin] 325 mg PO DAILY PRN 11/25/21 11/25/21 Famotidine 10 mg PO BID 11/25/21 11/25/21 Allergies Allergy/AdvReac Type Severity Reaction Status Date / Time Penicillins Allergy Swelling Verified 11/25/21 17:12 Sulfa (Sulfonamide Allergy Swelling Verified 11/25/21 17:12 Antibiotics) Review of Systems ROS Statement: Those systems with pertinent positive or pertinent negative responses have been documented in the HPI. ROS Other: All systems not noted in ROS Statement are negative. Past Medical History Past Medical History: Diabetes Mellitus, Hypertension Additional Past Medical History / Comment(s): FX LEFT WRIST, IN HALF CAST, colitis, History of Any Multi-Drug Resistant Organisms: ESBL Date of last positivie culture/infection: 10/05/21 ESBL E. coli MDRO Source:: Urine Past Surgical History: Appendectomy, Cholecystectomy Additional Past Surgical History / Comment(s): colonoscopy ; Left ANkle Past Anesthesia/Blood Transfusion Reactions: No Reported Reaction Past Psychological History: No Psychological Hx Reported Smoking Status: Never smoker Past Alcohol Use History: None Reported Past Drug Use History: None Reported - Past Family History Brother(s) Family Medical History: Cancer Sister(s) Family Medical History: Cancer General Exam - General Exam Comments Initial Comments: Physical Exam GENERAL: Patient is well-developed and well-nourished. Patient is nontoxic and well-hydrated and is in no distress. HENT: Normocephalic, Atraumatic. EYES: PERRL, EOMI No conjunctival pallor PULMONARY: Unlabored respirations. No audible rales rhonchi or wheezing was noted. CARDIOVASCULAR: There is a regular rate and rhythm without any murmurs gallops or rubs. ABDOMEN: Soft and nontender with normal bowel sounds. SKIN: Skin is clear with no lesions or rashes and otherwise unremarkable. : Rectum with external hemorrhoid noted, bright red blood per rectum noted NEUROLOGIC: Patient is alert and oriented x3. Moving all extremities spontaneously MUSCULOSKELETAL: Normal extremities with adequate strength and full range of motion. No lower extremity swelling or edema. No calf tenderness. PSYCHIATRIC: Normal psychiatric evaluation. Limitations: no limitations Course Vital Signs 11/25/21 11/25/21 16:18 18:00 Temperature 97.8 F Pulse Rate 70 72 Respiratory 18 18 Rate Blood Pressure 148/65 136/68 O2 Sat by Pulse 98 97 Oximetry Medical Decision Making - Medical Decision Making The patient was seen and evaluated, history is obtained from the patient, baseline labs were obtained hemoglobin has improved to 10.2 from previous howeve r upon reevaluation patient has had another large bloody bowel movement. Given her advanced age and recent need for transfusion I would recommend mission to the hospital. This plan was discussed with Dr. Pugh who accepts the admission. - Lab Data Result diagrams: 11/25/21 16:36 11/25/21 16:36 Lab Results 11/25/21 11/25/21 11/25/21 Range/Units 16:36 16:36 16:36 WBC 9.0 (3.8-10.6) k/uL RBC 4.23 (3.80-5.40) m/uL Hgb 10.6 L (11.4-16.0) gm/dL Hct 34.6 (34.0-46.0) % MCV 81.9 (80.0-100.0) fL MCH 25.0 (25.0-35.0) pg MCHC 30.5 L (31.0-37.0) g/dL RDW 21.4 H (11.5-15.5) % Plt Count 189 (150-450) k/uL MPV 10.0 Neutrophils % 80 % Lymphocytes % 13 % Monocytes % 4 % Eosinophils % 0 % Basophils % 0 % Neutrophils # 7.2 (1.3-7.7) k/uL Lymphocytes # 1.2 (1.0-4.8) k/uL Monocytes # 0.4 (0-1.0) k/uL Eosinophils # 0.0 (0-0.7) k/uL Basophils # 0.0 (0-0.2) k/uL Hypochromasia Marked Anisocytosis Moderate Microcytosis Moderate PT 11.5 (9.0-12.0) sec INR 1.1 (<1.2) APTT 22.2 (22.0-30.0) sec Sodium 137 (137-145) mmol/L Potassium 4.3 (3.5-5.1) mmol/L Chloride 106 (98-107) mmol/L Carbon Dioxide 25 (22-30) mmol/L Anion Gap 6 mmol/L BUN 18 H (7-17) mg/dL Creatinine 0.93 (0.52-1.04) mg/dL Est GFR (CKD-EPI)AfAm 66 (>60 ml/min/1.73 sqM) Est GFR (CKD-EPI)NonAf 57 (>60 ml/min/1.73 sqM) Glucose 168 H (74-99) mg/dL Calcium 8.9 (8.4-10.2) mg/dL Total Bilirubin 0.4 (0.2-1.3) mg/dL AST 25 (14-36) U/L ALT 13 (4-34) U/L Alkaline Phosphatase 114 (38-126) U/L Total Protein 6.9 (6.3-8.2) g/dL Albumin 3.4 L (3.5-5.0) g/dL Blood Type Blood Type Recheck Bld Type Recheck Status Antibody Screen Spec Expiration Date 11/25/21 Range/Units 16:36 WBC (3.8-10.6) k/uL RBC (3.80-5.40) m/uL Hgb (11.4-16.0) gm/dL Hct (34.0-46.0) % MCV (80.0-100.0) fL MCH (25.0-35.0) pg MCHC (31.0-37.0) g/dL RDW (11.5-15.5) % Plt Count (150-450) k/uL MPV Neutrophils % % Lymphocytes % % Monocytes % % Eosinophils % % Basophils % % Neutrophils # (1.3-7.7) k/uL Lymphocytes # (1.0-4.8) k/uL Monocytes # (0-1.0) k/uL Eosinophils # (0-0.7) k/uL Basophils # (0-0.2) k/uL Hypochromasia Anisocytosis Microcytosis PT (9.0-12.0) sec INR (<1.2) APTT (22.0-30.0) sec Sodium (137-145) mmol/L Potassium (3.5-5.1) mmol/L Chloride (98-107) mmol/L Carbon Dioxide (22-30) mmol/L Anion Gap mmol/L BUN (7-17) mg/dL Creatinine (0.52-1.04) mg/dL Est GFR (CKD-EPI)AfAm (>60 ml/min/1.73 sqM) Est GFR (CKD-EPI)NonAf (>60 ml/min/1.73 sqM) Glucose (74-99) mg/dL Calcium (8.4-10.2) mg/dL Total Bilirubin (0.2-1.3) mg/dL AST (14-36) U/L ALT (4-34) U/L Alkaline Phosphatase (38-126) U/L Total Protein (6.3-8.2) g/dL Albumin (3.5-5.0) g/dL Blood Type O Positive Blood Type Recheck O Pos Bld Type Recheck Status No Antibody Screen NEGATIVE Spec Expiration Date 11/28/20212335 Disposition Clinical Impression: GI bleeding Disposition: ADMITTED IP TO THIS [facility] Condition: Serious Is patient prescribed a controlled substance at d/c from ED?: No Referrals: Sudhakar Ferreira MD [Primary Care Provider] - 1-2 days
[2021-11-25] MEDS ORDERED: NALOXONE 0.4 MG/ML 1 ML VIAL IV PRN (20:07)
[2021-11-26] MEDS: METOPROLOL TARTRATE 50 MG TAB PO SCH ×3 (00:04→21:17)
[2021-11-26] MEDS: PANTOPRAZOLE 40 MG TABLET PO SCH ×3 (00:04→16:54)
[2021-11-26] MEDS: SODIUM CHLORIDE 0.9% 1,000 ML IV SCH ×2 (00:05→12:11)
--- NOTE | 2021-11-26 03:01 | P.HPIM ---
History of Present Illness H&P Date: 11/25/21 Chief Complaint: rectal bleeding 81 year old female with hypertension , DM patient comes in for rectal bleeding, she reports sudden episode of bloody diarrhea , painless, no SOB or chest pain , no dizziness or fall , denies being on any blood thinners, or NSAIDs patient was recently discharged from the hospital on September 2021, where she was admitted for UTI 2/2 ESBL and at that time also had an episode of GI bleeding , and had EGD and C scope done , at that time diagnosed with internal hemorroids, but had significant drop in her Hgb , requiring blood transfusion currently she feels well, denies any pain or trouble breathing patient believes she also has recurrent UTI , with dysuria no hematuria , no fever, no chills blood work in the ED showed stable hemoglobin , no leukocytosis Review of Systems Pertinent positives as noted in HPI. All other systems were reviewed and are negative Past Medical History Past Medical History: Diabetes Mellitus, Hypertension Additional Past Medical History / Comment(s): FX LEFT WRIST, IN HALF CAST, colitis, History of Any Multi-Drug Resistant Organisms: ESBL Date of last positivie culture/infection: 10/05/21 ESBL E. coli MDRO Source:: Urine Past Surgical History: Appendectomy, Cholecystectomy Additional Past Surgical History / Comment(s): colonoscopy ; Left ANkle Past Anesthesia/Blood Transfusion Reactions: No Reported Reaction Past Psychological History: No Psychological Hx Reported Smoking Status: Never smoker Past Alcohol Use History: None Reported Past Drug Use History: None Reported - Past Family History Brother(s) Family Medical History: Cancer Sister(s) Family Medical History: Cancer Medications and Allergies Home Medications Medication Instructions Recorded Confirmed Type Atorvastatin [Lipitor] 10 mg PO HS 07/04/17 11/25/21 History Dicyclomine [Bentyl] 10 mg PO TID PRN 07/04/17 11/25/21 History Metoprolol Tartrate [Lopressor] 50 mg PO BID 07/04/17 11/25/21 History amLODIPine BESYLATE/BENAZEPRIL 1 cap PO DAILY 07/04/17 11/25/21 History [Lotrel 5-20 MG] Ergocalciferol [Vitamin D2 (1250 1,250 mcg PO WORKMAN 10/05/21 11/25/21 History Mcg = 69068 Iu)] Aspirin EC [Ecotrin] 325 mg PO DAILY PRN 11/25/21 11/25/21 History Famotidine 10 mg PO BID 11/25/21 11/25/21 History Allergies Allergy/AdvReac Type Severity Reaction Status Date / Time Penicillins Allergy Swelling Verified 11/25/21 17:12 Sulfa (Sulfonamide Allergy Swelling Verified 11/25/21 17:12 Antibiotics) Physical Exam Vitals: Vital Signs Temp Pulse Resp BP Pulse Ox 11/25/21 18:00 72 18 136/68 97 11/25/21 16:18 97.8 F 70 18 148/65 98 Intake and Output 11/25/21 11/25/21 11/25/21 06:59 14:59 22:59 Other: Weight 63.503 kg Constitutional: No acute distress, conversant, pleasant Eyes: Anicteric sclerae, moist conjunctiva, Pupils equal round reactive to light ENMT: NC/AT Oropharynx clear, no erythema, or exudates Neck: Supple, no masses, or JVD No carotid bruits No thyromegaly Lungs: Clear to auscultation Clear to percussion Normal respiratory effort, no accessory muscle use Cardiovascular: Heart regular in rate and rhythm, No murmurs, gallops, or rubs No peripheral edema Abdominal: Soft Nontender, no guarding, rebound or rigidity Abdomen moving with respiration Normoactive bowel sounds No hepatomegaly, No splenomegaly No palpable mass No abdominal wall hernia noted Skin: Normal temperature, tone, texture, turgor No induration No subcutaneous nodules No rash, lesions No ulcers Extremities: No digital cyanosis No clubbing Pedal pulses intact and symmetrical Radial pulses intact and symmetrical No calf tenderness Psychiatric: Alert and oriented to person, place and time Appropriate affect fair judgement Neuro Muscles Strength 4/5 in all 4 extremities Sensation to light touch grossly present throughout Cranial nerves II-XII grossly intact No focal sensory deficits Lymphatics: no palpable cervical or supraclavicular , or inguinal lymph nodes Results CBC & Chem 7: 11/25/21 16:36 11/25/21 16:36 Labs: Abnormal Lab Results - Last 24 Hours (Table) 11/25/21 11/25/21 Range/Units 16:36 16:36 Hgb 10.6 L (11.4-16.0) gm/dL MCHC 30.5 L (31.0-37.0) g/dL RDW 21.4 H (11.5-15.5) % BUN 18 H (7-17) mg/dL Glucose 168 H (74-99) mg/dL Albumin 3.4 L (3.5-5.0) g/dL Assessment and Plan Assessment: recurrent rectal bleeding , possibly secondary to hemorroids PPI BID monitor Hgb hold aspirin IVF hydration with normal saline fall precautions check UA , patient with history of UTI 2/2 ESBL, rule out recurrent UTI chronic conditions hypertension , resume BP meds DM , insulin sliding scale hyperlipidemia , resume statin No code DVT PPX mechanical anticipated length of stay < 2 midnights
[2021-11-26 05:15] LABS: Appearance,Urine Turbid (Clear); Bacteria,Urine Moderate /hpf; Bilirubin,Urine Negative (Negative); Blood,Urine Moderate (Negative); Budding Yeast,Urine Many /hpf; Color,Urine Yellow; Glucose,Urine (UA) Negative (Negative); Ketones,Urine Negative (Negative); Leukocyte Esterase,Urine Large (Negative); Mucus,Urine Rare /hpf; Nitrite,Urine Positive (Negative); Protein,Urine 1+ (Negative); RBC,Urine 24 /hpf (0-5); Specific Gravity,Urine 1.019 (1.001-1.035); Squamous Epithelial Cell,Urine 4 /hpf (0-4); Urobilinogen,Urine <2.0 mg/dL (<2.0); WBC,Urine >182 /hpf (0-5)
[2021-11-26] MEDS: amLODIPine 5 MG TAB PO SCH (08:47)
[2021-11-26] MEDS: LINEZOLID 600 MG in DEXTROSE/WATER 1 300ML.BAG IVPB SCH ×2 (08:47→21:17)
[2021-11-26] MEDS: lisinopriL 20 MG TAB PO SCH (08:47)
[2021-11-26] MEDS ORDERED: DAPTOmycin 500 MG in SODIUM CHLORIDE 0.9% 50 ML IVPB SCH (09:00)
[2021-11-26 09:24] LABS: Basophils # (A) 0.06 X 10*3/uL (0.00-0.10); Basophils % (A) 0.8 %; Eosinophils # (A) 0.33 X 10*3/uL (0.04-0.35); Eosinophils % (A) 4.2 %; HCT 30.8 % (37.2-46.3); HGB 9.1 g/dL (12.0-15.0); Immature Grans, Automated 0.1 %; Lymphocytes # (A) 2.25 X 10*3/uL (0.90-5.00); Lymphocytes % (A) 28.4 %; MCH 23.8 pg (27.0-32.0); MCHC 29.5 g/dL (32.0-37.0); MCV 80.4 fL (80.0-97.0); Monocytes # (A) 0.79 X 10*3/uL (0.20-1.00); NRBC Per 100 WBC 0 /100 WBCS (0.0-0.0); Neutrophils # (A) 4.49 X 10*3/uL (1.80-7.70); Neutrophils % (A) 56.5 %; Platelet Count 177 X 10*3/uL (140-440); RBC 3.83 X 10*6/uL (4.10-5.20); RDW 24.5 % (11.5-14.5); WBC 7.93 X 10*3/uL (4.50-10.00)
[2021-11-26 09:27] LABS: ALT 12 U/L (8-44); AST 21 U/L (13-35); African American GFR (CKD) 79.7 (60.0-200.0); Albumin 3.2 g/dL (3.8-4.9); Albumin/Globulin Ratio 1.21 (1.60-3.17); Alkaline Phosphatase 98 U/L (41-126); BUN/Creat Ratio 18.26 Ratio (12.00-20.00); Blood Urea Nitrogen 14.5 mg/dL (9.0-27.0); Calcium 8.6 mg/dL (8.7-10.3); Chloride 108 mmol/L (96-109); Globulin 2.7 g/dL (1.6-3.3); Glucose 105 mg/dL (70-110); Non-African American GFR(CKD) 68.8 (60.0-200.0); Potassium 4.1 mmol/L (3.5-5.5); Sodium 140 mmol/L (135-145); Total Bilirubin <0.20 mg/dL (0.30-1.20); Total Protein 5.9 g/dL (6.2-8.2)
--- NOTE | 2021-11-26 15:01 | P.PN ---
<Trae Cha - Last Filed: 11/26/21 14:26> Subjective Progress Note Date: 11/26/21 Hospital course: Patient is a very pleasant 80-year-old female with a past medical history of hypertension, hyperlipidemia, GERD, GI bleed with findings of grade II internal hemorrhoids per colonoscopy completed 10/10/21., recent VRE UTI and previous ESBL UTI. Patient presented to the emergency department on 11/25/21 with a chief complaint of hematochezia with reports of rectal bleeding accompanied by reports of dysuria, incontinence, urinary frequency, and urinary urgency. She was seen and fully evaluated in the emergency department. She was found to have a UTI and stable hemoglobin of 10.6. Patient started on IV antibiotic Linezolid for treatment of UTI secondary to recent VRE positive urine culture. 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 Physical exam: Patient seen and fully evaluated at the bedside this morning. Patient resting comfortably showing no signs of acute distress. She states continued urinary frequency, urgency, incontinence and dysuria. She denies any noted hematuria and denies experiencing any abdominal pain, discomfort, CVA tenderness, or suprapubic tenderness. She reports dysuria radiates up into suprapubic region with urination only. She states that she believes she had one additional episode of hematochezia but states that is unclear because she went in her brief, hemoglobin 9.1 this morning from previous 10.6 We will trend every 6 hours and monitor for further drops in hemoglobin or signs of active bleeding. Patient to continue Linezolid pending urine culture results and/or further recommendations from infectious disease. Patient to continue GI prophylaxis with Protonix 40 mg twice a day and SCDs for DVT prophylaxis. Vital signs reviewed and stable. General: Nontoxic, no distress and appears stated age. Derm: Skin warm and dry, normal coloration for ethnicity. Head: Atraumatic, normocephalic and symmetric. Eyes: EOMs intact, no lid lag, and anicteric sclera Mouth: no lip lesions, mucus membranes moist Cardiovascular: regular rate and rhythm with normal S1S2, no murmur, positive posterior tibial pulses bilaterally, and cap refill < 2 seconds. Lungs: Respirations even, regular, and unlabored on room air. Lungs CTA bilaterally, no rhonchi, no rales, no wheezing, and no accessory muscle usage. Abdominal: soft, nontender to palpation, no guarding, no appreciable organomegaly Ext: ROM intact. No gross muscle atrophy, no edema, no contractures Neuro: Speech clear, face symmetrical and CN II-XII grossly intact with no noted focal neuro deficits Psych: Alert and oriented to person, place, time, and situation. Appropriate and pleasant affect. Assessment and Plan of Care:. GI bleed with reports of hematochezia and history of grade II internal hemorrhoids -Consult general surgery, appreciate further recommendations. -Monitor H&H every 6 hours and transfuse as needed for hemoglobin less than 7. -Protonix 40 mg IVP twice daily. -Clear liquid diet pending further recommendations from general surgery. -Continued gentle hydration with 0.9% normal. -SCDs for DVT prophylaxis. UTI with previous history of VRE and ESBL -Linezolid 600 mg every 12 hours -Follow up on urine culture results -Infectious disease was consulted secondary to patient's history of VRE and ESBL. -Bladder management -Gentle hydration with IV fluids -Monitor I's and O's Hypertension -Monitor vital signs and continue daily medication regimen with amlodipine and metoprolol . Hyperlipidemia -Continue daily medication regimen with atorvastatin 10 mg nightly. GERD -GI prophylaxis with Protonix 40 mg IVP twice daily Previous ORIF of left ankle 08/02/21 -Continue fall precautions and provide patient assistance as needed. -Symptomatic care and pain management as patient still reports occasional discomfort and left ankle. CODE STATUS: Full code DVT prophylaxis: SCDs Discussed with: Patient and RN Anticipated discharge date: Clinical course to determine Anticipated discharge place: Home A total of 45 minutes was spent on the care of this complex patient more than 50% of the time was spent in counseling and care coordination. Objective - Vital Signs Vital signs: Vital Signs Temp 98.1 F 11/26/21 08:00 Pulse 67 11/26/21 08:00 Resp 14 11/26/21 08:00 BP 135/73 11/26/21 08:00 Pulse Ox 97 11/26/21 08:00 Intake & Output 11/25/21 11/26/21 11/26/21 18:59 06:59 18:59 Weight 63.503 kg 63.503 kg Other: # Voids 2 # Bowel Movements 2 - Labs CBC & Chem 7: 11/26/21 04:31 11/26/21 04:31 Labs: Abnormal Lab Results - Last 24 Hours (Table) 11/25/21 11/25/21 11/26/21 Range/Units 16:36 16:36 04:35 Hgb 10.6 L (11.4-16.0) gm/dL MCHC 30.5 L (31.0-37.0) g/dL RDW 21.4 H (11.5-15.5) % BUN 18 H (7-17) mg/dL Glucose 168 H (74-99) mg/dL Albumin 3.4 L (3.5-5.0) g/dL Urine Appearance Turbid H (Clear) Urine Protein 1+ H (Negative) Urine Blood Moderate H (Negative) Urine Nitrite Positive H (Negative) Ur Leukocyte Esterase Large H (Negative) Urine RBC 24 H (0-5) /hpf Urine WBC >182 H (0-5) /hpf Urine WBC Clumps Many H (None) /hpf Urine Bacteria Moderate H (None) /hpf Urine Mucus Rare H (None) /hpf Urine Yeast (Budding) Many H (None) /hpf <Joni Tan - Last Filed: 11/26/21 17:30> Subjective I reviewed the documentation as provided by the DAYANA above, who is the original author of this note. I agree with the documented assessment and plan, with the following changes: none Objective - Vital Signs Vital signs: Vital Signs Temp 97.9 F 11/26/21 14:00 Pulse 60 11/26/21 14:00 Resp 18 11/26/21 14:00 BP 134/71 11/26/21 14:00 Pulse Ox 96 11/26/21 14:00 Intake & Output 11/25/21 11/26/21 11/26/21 18:59 06:59 18:59 Weight 63.503 kg 63.503 kg Other: # Voids 2 # Bowel Movements 2 - Labs CBC & Chem 7: 11/26/21 16:10 11/26/21 04:31 Labs: Abnormal Lab Results - Last 24 Hours (Table) 11/26/21 11/26/21 11/26/21 Range/Units 04:31 04:31 04:35 RBC 3.83 L (4.10-5.20) X 10*6/uL Hgb 9.1 L (12.0-15.0) g/dL Hct 30.8 L (37.2-46.3) % MCH 23.8 L (27.0-32.0) pg MCHC 29.5 L (32.0-37.0) g/dL RDW 24.5 H (11.5-14.5) % Calcium 8.6 L (8.7-10.3) mg/dL Total Bilirubin <0.20 L (0.30-1.20) mg/dL Total Protein 5.9 L (6.2-8.2) g/dL Albumin 3.2 L (3.8-4.9) g/dL Albumin/Globulin Ratio 1.21 L (1.60-3.17) g/dL Urine Appearance Turbid H (Clear) Urine Protein 1+ H (Negative) Urine Blood Moderate H (Negative) Urine Nitrite Positive H (Negative) Ur Leukocyte Esterase Large H (Negative) Urine RBC 24 H (0-5) /hpf Urine WBC >182 H (0-5) /hpf Urine WBC Clumps Many H (None) /hpf Urine Bacteria Moderate H (None) /hpf Urine Mucus Rare H (None) /hpf Urine Yeast (Budding) Many H (None) /hpf 11/26/21 Range/Units 16:10 RBC 3.76 L (4.10-5.20) X 10*6/uL Hgb 9.6 L (12.0-15.0) g/dL Hct 30.8 L (37.2-46.3) % MCH (27.0-32.0) pg MCHC (32.0-37.0) g/dL RDW 21.2 H (11.5-14.5) % Calcium (8.7-10.3) mg/dL Total Bilirubin (0.30-1.20) mg/dL Total Protein (6.2-8.2) g/dL Albumin (3.8-4.9) g/dL Albumin/Globulin Ratio (1.60-3.17) g/dL Urine Appearance (Clear) Urine Protein (Negative) Urine Blood (Negative) Urine Nitrite (Negative) Ur Leukocyte Esterase (Negative) Urine RBC (0-5) /hpf Urine WBC (0-5) /hpf Urine WBC Clumps (None) /hpf Urine Bacteria (None) /hpf Urine Mucus (None) /hpf Urine Yeast (Budding) (None) /hpf Microbiology - Last 24 Hours (Table) 11/26/21 04:35 Urine Culture - Preliminary Urine,Voided
[2021-11-26 17:00] LABS: Anisocytosis Moderate; Basophils % (A) 1 %; Eosinophils # (A) 0.3 k/uL (0-0.7); Eosinophils % (A) 5 %; HCT 30.8 % (34.0-46.0); HGB 9.6 gm/dL (11.4-16.0); Hypochromasia Marked; Lymphocytes # (A) 2.2 k/uL (1.0-4.8); Lymphocytes % (A) 33 %; MCH 25.5 pg (25.0-35.0); MCHC 31.1 g/dL (31.0-37.0); MCV 81.9 fL (80.0-100.0); Mean Platelet Volume 9.7; Microcytosis Moderate; Monocytes # (A) 0.4 k/uL (0-1.0); Monocytes % (A) 6 %; Neutrophils # (A) 3.6 k/uL (1.3-7.7); Neutrophils % (A) 53 %; Platelet Count 187 k/uL (150-450); RBC 3.76 m/uL (3.80-5.40); RDW 21.2 % (11.5-15.5); WBC 6.7 k/uL (3.8-10.6)
[2021-11-26] MEDS: ATORVASTATIN 10 MG TAB PO SCH (21:17)
[2021-11-26 21:47] LABS: Anisocytosis Moderate; Basophils % (A) 1 %; Eosinophils # (A) 0.3 k/uL (0-0.7); Eosinophils % (A) 5 %; HCT 32.7 % (34.0-46.0); HGB 9.7 gm/dL (11.4-16.0); Hypochromasia Marked; Lymphocytes % (A) 31 %; MCH 24.5 pg (25.0-35.0); MCHC 29.7 g/dL (31.0-37.0); MCV 82.6 fL (80.0-100.0); Mean Platelet Volume 9.8; Microcytosis Moderate; Monocytes # (A) 0.3 k/uL (0-1.0); Monocytes % (A) 5 %; Neutrophils # (A) 3.6 k/uL (1.3-7.7); Neutrophils % (A) 55 %; Platelet Count 178 k/uL (150-450); RBC 3.96 m/uL (3.80-5.40); RDW 21.7 % (11.5-15.5); WBC 6.5 k/uL (3.8-10.6)
--- NOTE | 2021-11-27 00:14 | P.CONS ---
History of Present Illness - Reason for Consult Consult date: 11/26/21 UTI Requesting physician: Trae Cha - Chief Complaint Bleeding per rectum x 1 day - History of Present Illness History of present illness : Patient is 81-year-old female presenting to the ER with GI bleeding apparently the morning of presentation to the hospital the patient had a formed bowel movement and afterwards noticed some bright red blood per rectum patient was complaining some abdominal crampy with a bloody stools patient denies having any nausea no vomiting patient denies having any chest pain or shortness of breath or cough did have mild burning of the urine but no frequency no suprapubic or flank pain patient did have a normal white count however patient noted to have significantly positive UA with large leukocyte esterase more than 182 WBC and moderate bacteria 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 EYES: No complaint. ENT: No complaint. RESPIRATORY: No complaint. CARDIOVASCULAR: No complaint. GENITOURINARY as per history of present illness. GASTROINTESTINAL: As per history of present illness. MUSCULOSKELETAL: No complaint. INTEGUMENTARY: No complaint. PSYCHOLOGIC: No complaint. ENDOCRINE: No complaint. NEUROLOGIC: No complaint. Past medical history : Reviewed, documented below Past surgical history : Reviewed, documented below Social history: Reviewed, documented below Medications: Reviewed, as documented below EXAMINATION: Vital sigans= Reviewed and documented below GENERAL DESCRIPTION: Elderly female lying in bed, no distress. No tachypnea or accessory muscle of respiration use. HEENT: Shows Pallor , no scleral icterus. Oral mucous membrane is dry. NECK: Trachea central, no thyromegaly. LUNGS: Unlabored breathing. Clear to auscultation anteriorly. No wheeze or crackle. HEART: S1, S2, regular rate and rhythm. ABDOMEN: Soft, no tenderness , guarding or rigidity EXTREMITIES: No edema of feet. SKIN: No rash, no masses palpable. NEUROLOGICAL: The patient is awake, alert, oriented x3, mood and affect normal. LABS AND RADIOLOGY: Reviewed results see below Assessment : Patient presented to hospital with a bleeding per rectum in this patient who did have a history of recurrent UTIs did have significantly positive UA and mild urinary symptoms possible cystitis with the last urine culture positive for VRE could be the same pathogen versus enteric gram-negative Plan: 1-patient to continue with Zyvox 600 mg p.o. every 12 2-gentle IV fluid We will follow on clinical condition and cultures to further adjust medication if needed Thank you for this consultation we will follow the patient along with you Past Medical History Past Medical History: Diabetes Mellitus, Hypertension Additional Past Medical History / Comment(s): FX LEFT WRIST, IN HALF CAST, colitis, History of Any Multi-Drug Resistant Organisms: ESBL Year Discovered:: 10/05/21 ESBL E. coli MDRO Source:: Urine Past Surgical History: Appendectomy, Cholecystectomy Additional Past Surgical History / Comment(s): colonoscopy ; Left ANkle Past Anesthesia/Blood Transfusion Reactions: No Reported Reaction Past Psychological History: No Psychological Hx Reported Smoking Status: Never smoker Past Alcohol Use History: None Reported Past Drug Use History: None Reported - Past Family History Brother(s) Family Medical History: Cancer Sister(s) Family Medical History: Cancer Medications and Allergies Home Medications Medication Instructions Recorded Confirmed Type Atorvastatin [Lipitor] 10 mg PO HS 07/04/17 11/25/21 History Dicyclomine [Bentyl] 10 mg PO TID PRN 07/04/17 11/25/21 History Metoprolol Tartrate [Lopressor] 50 mg PO BID 07/04/17 11/25/21 History amLODIPine BESYLATE/BENAZEPRIL 1 cap PO DAILY 07/04/17 11/25/21 History [Lotrel 5-20 MG] Ergocalciferol [Vitamin D2 (1250 1,250 mcg PO WORKMAN 10/05/21 11/25/21 History Mcg = 62331 Iu)] Aspirin EC [Ecotrin] 325 mg PO DAILY PRN 11/25/21 11/25/21 History Famotidine 10 mg PO BID 11/25/21 11/25/21 History Allergies Allergy/AdvReac Type Severity Reaction Status Date / Time Penicillins Allergy Swelling Verified 11/25/21 17:12 Sulfa (Sulfonamide Allergy Swelling Verified 11/25/21 17:12 Antibiotics) Physical Exam Vitals: Vital Signs Temp Pulse Pulse Resp BP BP Pulse Ox 11/26/21 14:00 97.9 F 60 18 134/71 96 11/26/21 08:00 98.1 F 67 14 135/73 97 11/26/21 02:00 98.5 F 67 15 150/70 95 11/25/21 23:10 98.1 F 69 17 161/72 97 11/25/21 22:33 69 18 11/25/21 20:36 78 16 135/64 95 11/25/21 18:00 72 18 136/68 97 11/25/21 16:18 97.8 F 70 18 148/65 98 Intake and Output 11/26/21 11/26/21 11/26/21 06:59 14:59 22:59 Other: # Voids 2 # Bowel Movements 2 Results CBC & Chem 7: 11/26/21 20:55 11/26/21 04:31 Labs: Abnormal Lab Results - Last 24 Hours (Table) 11/25/21 11/25/21 11/26/21 Range/Units 16:36 16:36 04:31 RBC 3.83 L (4.10-5.20) X 10*6/uL Hgb 10.6 L 9.1 L (11.4-16.0) gm/dL Hct 30.8 L (37.2-46.3) % MCH 23.8 L (27.0-32.0) pg MCHC 30.5 L 29.5 L (31.0-37.0) g/dL RDW 21.4 H 24.5 H (11.5-15.5) % BUN 18 H (7-17) mg/dL Glucose 168 H (74-99) mg/dL Calcium (8.7-10.3) mg/dL Total Bilirubin (0.30-1.20) mg/dL Total Protein (6.2-8.2) g/dL Albumin 3.4 L (3.5-5.0) g/dL Albumin/Globulin Ratio (1.60-3.17) g/dL Urine Appearance (Clear) Urine Protein (Negative) Urine Blood (Negative) Urine Nitrite (Negative) Ur Leukocyte Esterase (Negative) Urine RBC (0-5) /hpf Urine WBC (0-5) /hpf Urine WBC Clumps (None) /hpf Urine Bacteria (None) /hpf Urine Mucus (None) /hpf Urine Yeast (Budding) (None) /hpf 11/26/21 11/26/21 Range/Units 04:31 04:35 RBC (4.10-5.20) X 10*6/uL Hgb (11.4-16.0) gm/dL Hct (37.2-46.3) % MCH (27.0-32.0) pg MCHC (31.0-37.0) g/dL RDW (11.5-15.5) % BUN (7-17) mg/dL Glucose (74-99) mg/dL Calcium 8.6 L (8.7-10.3) mg/dL Total Bilirubin <0.20 L (0.30-1.20) mg/dL Total Protein 5.9 L (6.2-8.2) g/dL Albumin 3.2 L (3.5-5.0) g/dL Albumin/Globulin Ratio 1.21 L (1.60-3.17) g/dL Urine Appearance Turbid H (Clear) Urine Protein 1+ H (Negative) Urine Blood Moderate H (Negative) Urine Nitrite Positive H (Negative) Ur Leukocyte Esterase Large H (Negative) Urine RBC 24 H (0-5) /hpf Urine WBC >182 H (0-5) /hpf Urine WBC Clumps Many H (None) /hpf Urine Bacteria Moderate H (None) /hpf Urine Mucus Rare H (None) /hpf Urine Yeast (Budding) Many H (None) /hpf Microbiology - Last 24 Hours (Table) 11/26/21 04:35 Urine Culture - Preliminary Urine,Voided
[2021-11-27] MEDS: SODIUM CHLORIDE 0.9% 1,000 ML IV SCH ×2 (08:06→16:57)
[2021-11-27] MEDS: LINEZOLID 600 MG in DEXTROSE/WATER 1 300ML.BAG IVPB SCH (08:06)
[2021-11-27] MEDS: lisinopriL 20 MG TAB PO SCH (08:07)
[2021-11-27] MEDS: PANTOPRAZOLE 40 MG TABLET PO SCH ×2 (08:07→16:54)
[2021-11-27] MEDS: amLODIPine 5 MG TAB PO SCH (08:07)
[2021-11-27] MEDS: METOPROLOL TARTRATE 50 MG TAB PO SCH ×2 (08:07→19:34)
--- NOTE | 2021-11-27 10:53 | P.PN ---
<Trae Cha - Last Filed: 11/27/21 10:46> Subjective Progress Note Date: 11/27/21 Hospital course: Patient is a very pleasant 80-year-old female with a past medical history of h ypertension, hyperlipidemia, GERD, GI bleed with findings of grade II internal hemorrhoids per colonoscopy completed 10/10/21., recent VRE UTI and previous ESBL UTI. Patient presented to the emergency department on 11/25/21 with a chief complaint of hematochezia with reports of rectal bleeding accompanied by reports of dysuria, incontinence, urinary frequency, and urinary urgency. She was seen and fully evaluated in the emergency department. She was found to have a UTI and stable hemoglobin of 10.6. Patient started on IV antibiotic Linezolid for treatment of UTI secondary to recent VRE positive urine culture. 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 Physical exam: Patient seen and fully evaluated at the bedside this morning. Patient resting comfortably in bed showing no signs of acute distress. She reports improvement in dysuria but reports continued urinary frequency, urgency, and incontinence. She continues to deny having any abdominal bruits/discomfort. He denies any further episode of rectal bleeding or hematochezia. Hemoglobin has remained stable with last 3 resulting at 9.1, 9.6, and 9.7. Awaiting morning labs resulted at this time. Preliminary urine culture showing no growth at this time awaiting final culture results. Patient to continue Linezolid pending urine culture results and/or further recommendations from infectious disease. Patient to continue GI prophylaxis with Protonix 40 mg twice a day and SCDs for DVT prophylaxis. Vital signs reviewed and stable. General: Nontoxic, no distress and appears stated age. Derm: Skin warm and dry, normal coloration for ethnicity. Head: Atraumatic, normocephalic and symmetric. Eyes: EOMs intact, no lid lag, and anicteric sclera Mouth: no lip lesions, mucus membranes moist Cardiovascular: regular rate and rhythm with normal S1S2, no murmur, positive posterior tibial pulses bilaterally, and cap refill < 2 seconds. Lungs: Respirations even, regular, and unlabored on room air. Lungs CTA bilaterally, no rhonchi, no rales, no wheezing, and no accessory muscle usage. Abdominal: soft, nontender to palpation, no guarding, no appreciable or ganomegaly Ext: ROM intact. No gross muscle atrophy, no edema, no contractures Neuro: Speech clear, face symmetrical and CN II-XII grossly intact with no noted focal neuro deficits Psych: Alert and oriented to person, place, time, and situation. Appropriate and pleasant affect. Assessment and Plan of Care:. GI bleed with reports of hematochezia and history of grade II internal hemorrhoids -Consult general surgery, appreciate further recommendations. -Continue to monitor H&H and transfuse as needed for hemoglobin less than 7. -Protonix 40 mg IVP twice daily. -Clear liquid diet pending further recommendations from general surgery. -Continued gentle hydration with 0.9% normal. -SCDs for DVT prophylaxis. UTI with previous history of VRE and ESBL -Linezolid 600 mg every 12 hours -Follow up on urine culture results -Infectious disease following secondary to patient's history of VRE and ESBL. -Bladder management -Gentle hydration with IV fluids -Monitor I's and O's Hypertension -Monitor vital signs and continue daily medication regimen with amlodipine and metoprolol . Hyperlipidemia -Continue daily medication regimen with atorvastatin 10 mg nightly. GERD -GI prophylaxis with Protonix 40 mg IVP twice daily Previous ORIF of left ankle 08/02/21, patient reports chronic pain -Continue fall precautions and provide patient assistance as needed. -Symptomatic care and pain management as patient still reports occasional discomfort and left ankle. CODE STATUS: Full code DVT prophylaxis: SCDs Discussed with: Patient and RN Anticipated discharge date: Clinical course to determine Anticipated discharge place: Home A total of 45 minutes was spent on the care of this complex patient more than 50% of the time was spent in counseling and care coordination. Objective - Vital Signs Vital signs: Vital Signs Temp 97.6 F 11/27/21 02:00 Pulse 59 L 11/27/21 02:00 Resp 17 11/27/21 02:00 BP 126/69 11/27/21 02:00 Pulse Ox 98 11/27/21 02:00 Intake & Output 11/26/21 11/27/21 11/27/21 18:59 06:59 18:59 Intake Total 540 Balance 540 Intake: Oral 540 Other: # Voids 3 3 # Bowel Movements 1 - Labs CBC & Chem 7: 11/26/21 20:55 11/26/21 04:31 Labs: Abnormal Lab Results - Last 24 Hours (Table) 11/26/21 11/26/21 11/26/21 Range/Units 04:31 04:31 16:10 RBC 3.83 L 3.76 L (4.10-5.20) X 10*6/uL Hgb 9.1 L 9.6 L (12.0-15.0) g/dL Hct 30.8 L 30.8 L (37.2-46.3) % MCH 23.8 L (27.0-32.0) pg MCHC 29.5 L (32.0-37.0) g/dL RDW 24.5 H 21.2 H (11.5-14.5) % Calcium 8.6 L (8.7-10.3) mg/dL Total Bilirubin <0.20 L (0.30-1.20) mg/dL Total Protein 5.9 L (6.2-8.2) g/dL Albumin 3.2 L (3.8-4.9) g/dL Albumin/Globulin Ratio 1.21 L (1.60-3.17) g/dL 11/26/21 Range/Units 20:55 RBC (4.10-5.20) X 10*6/uL Hgb 9.7 L (12.0-15.0) g/dL Hct 32.7 L (37.2-46.3) % MCH 24.5 L (27.0-32.0) pg MCHC 29.7 L (32.0-37.0) g/dL RDW 21.7 H (11.5-14.5) % Calcium (8.7-10.3) mg/dL Total Bilirubin (0.30-1.20) mg/dL Total Protein (6.2-8.2) g/dL Albumin (3.8-4.9) g/dL Albumin/Globulin Ratio (1.60-3.17) g/dL Microbiology - Last 24 Hours (Table) 11/26/21 04:35 Urine Culture - Preliminary Urine,Voided <Dominick,Amishaja - Last Filed: 11/28/21 07:10> Subjective I reviewed the documentation as provided by the DAYANA above, who is the original author of this note. I agree with the documented assessment and plan, with the following changes: none Objective - Vital Signs Vital signs: Vital Signs Temp 98.4 F 11/28/21 00:50 Pulse 54 L 11/28/21 00:50 Resp 14 11/28/21 00:50 BP 129/71 11/28/21 00:50 Pulse Ox 98 11/28/21 00:50 Intake & Output 11/27/21 11/28/21 11/28/21 18:59 06:59 18:59 Other: # Voids 4 4 - Labs CBC & Chem 7: 11/27/21 04:29 11/27/21 04:29 Labs: Abnormal Lab Results - Last 24 Hours (Table) 11/27/21 11/27/21 Range/Units 04:29 04:29 RBC 3.71 L (4.10-5.20) X 10*6/uL Hgb 8.9 L (12.0-15.0) g/dL Hct 29.6 L (37.2-46.3) % MCV 79.8 L (80.0-97.0) fL MCH 24.0 L (27.0-32.0) pg MCHC 30.1 L (32.0-37.0) g/dL RDW 24.0 H (11.5-14.5) % Eosinophils # 0.41 H (0.04-0.35) X 10*3/uL Sodium 136 L (137-145) mmol/L Chloride 111 H (98-107) mmol/L Carbon Dioxide 21 L (22-30) mmol/L Glucose 103 H (74-99) mg/dL Total Protein 6.0 L (6.3-8.2) g/dL Albumin 2.7 L (3.5-5.0) g/dL Microbiology - Last 24 Hours (Table) 11/26/21 04:35 Urine Culture - Preliminary Urine,Voided Gram Neg Bacilli
[2021-11-27 11:30] LABS: ALT 9 U/L (4-34); AST 25 U/L (14-36); African American GFR (CKD) 87 (>60 ml/min/1.73 sqM); Albumin 2.7 g/dL (3.5-5.0); Albumin/Globulin Ratio 0.8; Alkaline Phosphatase 91 U/L (38-126); Anion Gap 4 mmol/L; Blood Urea Nitrogen 9 mg/dL (7-17); Calcium 8.4 mg/dL (8.4-10.2); Carbon Dioxide 21 mmol/L (22-30); Chloride 111 mmol/L (98-107); Globulin 3.3 g/dL; Glucose 103 mg/dL (74-99); Magnesium 1.8 mg/dL (1.6-2.3); Non-African American GFR(CKD) 76 (>60 ml/min/1.73 sqM); Potassium 3.9 mmol/L (3.5-5.1); Sodium 136 mmol/L (137-145); Total Bilirubin 0.4 mg/dL (0.2-1.3)
--- NOTE | 2021-11-27 12:04 | P.GSCN ---
<Sujata Roberts - Last Filed: 11/27/21 11:50> History of Present Illness Consult date: 11/27/21 Reason for Consult: GI bleed History of present illness: CHIEF COMPLAINT: Rectal bleeding HISTORY OF PRESENT ILLNESS: This is a pleasant 81-year-old female who presented to the emergency department 2 days ago with complaints of GI bleed. Patient sta octavio she had some loose bowel movements with cramping followed by blood in the toilet. She states the blood was bright red. She denied any nausea or vomiting, fever or chills associated with the cramping. Patient was recently admitted in September with complaints of weakness and dizziness. At that time she also had stated that she was having some abdominal cramping and loose stool. At times she had a hemoglobin of 5.2 and was transfused 2 units of blood. She underwent an EGD and colonoscopy by Dr. Sullivan on 10/07/2021. EGD showed a moderate hiatal hernia, erosions without evidence evidence of esophagitis or peptic ulcer disease. Colonoscopy revealed scattered sigmoid diverticulosis, and grade 2 internal hemorrhoids. The patient states she had the loose stools and cramping with bleeding for 2 days. States that she has had no further bleeding since Saturday. She denies any abdominal pain, nausea, or vomiting. Hemoglobin on admission was 10.6, repeat yesterday was 9.7. Today's is currently pending. He denies being on any anticoagulation. It does take a 325 mg aspirin daily. PAST MEDICAL HISTORY: Hypertension, 10/05/2021 ESBL E. coli urine PAST SURGICAL HISTORY: Appendectomy, cholecystectomy, colonoscopy/EGD on 10/07/2021 MEDICATIONS: See list. ALLERGIES: See list. SOCIAL HISTORY: No illicit drug use. REVIEW OF SYSTEMS: CONSTITUTIONAL: Denies fever or chills. HEENT: Denies blurred vision, vision changes, or eye pain. Denies hemoptysis CARDIOVASCULAR: Denies chest pain or pressure. RESPIRATORY: No shortness of breath. GASTROINTESTINAL: See HPI for pertinent findings HEMATOLOGIC: Denies bleeding disorders. GENITOURINARY: Denies any blood in urine or increased urinary frequency. SKIN: Denies pruitis. Denies rash. PHYSICAL EXAM: VITAL SIGNS: Reviewed GENERAL: Well-developed in no acute distress. HEENT: No sclera icterus. Extraocular movements grossly intact. Moist buccal mucosa. Head is atraumatic, normocephalic. No nasal drainage. ABDOMEN: Soft. Nondistended. Nontender. NEUROLOGIC: Alert and oriented. Cranial nerves II through XII grossly intact. LABORATORY DATA: WBC 6.5 hemoglobin 9.7 hematocrit 32 platelet count 170,000 Sodium 136 potassium 3.9 BUN 9 creatinine 0.74 glucose 103 [place] him 1.8 total protein 6.0 albumin 2.7 IMAGING: ASSESSMENT: 1. GI bleed. Patient underwent recent EGD and colonoscopy for similar complai nts on 10/07/2021 with no evidence of active bleed or old blood noted. 2. Abdominal cramping 3. Anemia 4. Grade 2 internal hemorrhoids PLAN: 1. Stool cultures, C. diff ordered 2. Patient may advance to full liquid diet 3. No plans at this time for any repeat endoscopic evaluation 4. Further recommendations forthcoming based on patient's clinical course Thank you for this consultation, we will continue to follow. The impression and plan of care has been dictated as directed. Dr. Brewster I performed a history and examination of this patient, discussed the same with the dictator. I agree with the dictator's note ,documented as a scribe. Any additional findings or plans will be noted. Past Medical History Past Medical History: Diabetes Mellitus, Hypertension Additional Past Medical History / Comment(s): FX LEFT WRIST, IN HALF CAST, colitis, History of Any Multi-Drug Resistant Organisms: ESBL Year Discovered:: 10/05/21 ESBL E. coli MDRO Source:: Urine Past Surgical History: Appendectomy, Cholecystectomy Additional Past Surgical History / Comment(s): colonoscopy ; Left ANkle Past Anesthesia/Blood Transfusion Reactions: No Reported Reaction Past Psychological History: No Psychological Hx Reported Smoking Status: Never smoker Past Alcohol Use History: None Reported Past Drug Use History: None Reported - Past Family History Brother(s) Family Medical History: Cancer Sister(s) Family Medical History: Cancer Medications and Allergies Home Medications Medication Instructions Recorded Confirmed Type RX: Atorvastatin [Lipitor] 10 mg PO HS 07/04/17 11/25/21 History RX: Dicyclomine [Bentyl] 10 mg PO TID PRN 07/04/17 11/25/21 History RX: Metoprolol Tartrate [Lopressor] 50 mg PO BID 07/04/17 11/25/21 History RX: amLODIPine BESYLATE/BENAZEPRIL 1 cap PO DAILY 07/04/17 11/25/21 History [Lotrel 5-20 MG] RX: Ergocalciferol [Vitamin D2 1,250 mcg PO WORKMAN 10/05/21 11/25/21 History (1250 Mcg = 18900 Iu)] Aspirin EC [Ecotrin] 325 mg PO DAILY PRN 11/25/21 11/25/21 History RX: Famotidine 10 mg PO BID 11/25/21 11/25/21 History Allergies Allergy/AdvReac Type Severity Reaction Status Date / Time Penicillins Allergy Swelling Verified 11/25/21 17:12 Sulfa (Sulfonamide Allergy Swelling Verified 11/25/21 17:12 Antibiotics) Surgical - Exam Vital Signs Temp Pulse Resp BP Pulse Ox 97.8 F 70 18 148/65 98 11/25/21 16:18 11/25/21 16:18 11/25/21 16:18 11/25/21 16:18 11/25/21 16:18 Results - Labs 11/26/21 20:55 11/27/21 04:29 Abnormal Lab Results - Last 24 Hours (Table) 11/26/21 11/26/21 Range/Units 16:10 20:55 RBC 3.76 L (3.80-5.40) m/uL Hgb 9.6 L 9.7 L (11.4-16.0) gm/dL Hct 30.8 L 32.7 L (34.0-46.0) % MCH 24.5 L (25.0-35.0) pg MCHC 29.7 L (31.0-37.0) g/dL RDW 21.2 H 21.7 H (11.5-15.5) % Microbiology - Last 24 Hours (Table) 11/26/21 04:35 Urine Culture - Preliminary Urine,Voided <Carlos Manuel Brewster - Last Filed: 11/27/21 18:51> History of Present Illness History of present illness: I have personally seen and examined the patient, reviewed the [employer]ER /PAs history, exam and MDM and agree with the assessment and plan as written. Based on total visit time, I have performed more than 50% of the visit. As above. Patient had abdominal cramps associated with bright red blood per rectum. Recent endoscopy results from September noted. Continue full liquids for now. Follow hemoglobin. Follow stool cultures. We'll follow with you Surgical - Exam Vital Signs Temp Pulse Resp BP Pulse Ox 97.8 F 70 18 148/65 98 11/25/21 16:18 11/25/21 16:18 11/25/21 16:18 11/25/21 16:18 11/25/21 16:18 Results - Labs 11/27/21 04:29 11/27/21 04:29 Abnormal Lab Results - Last 24 Hours (Table) 11/26/21 11/27/21 11/27/21 Range/Units 20:55 04:29 04:29 RBC 3.71 L (4.10-5.20) X 10*6/uL Hgb 9.7 L 8.9 L (11.4-16.0) gm/dL Hct 32.7 L 29.6 L (34.0-46.0) % MCV 79.8 L (80.0-97.0) fL MCH 24.5 L 24.0 L (25.0-35.0) pg MCHC 29.7 L 30.1 L (31.0-37.0) g/dL RDW 21.7 H 24.0 H (11.5-15.5) % Eosinophils # 0.41 H (0.04-0.35) X 10*3/uL Sodium 136 L (137-145) mmol/L Chloride 111 H (98-107) mmol/L Carbon Dioxide 21 L (22-30) mmol/L Glucose 103 H (74-99) mg/dL Total Protein 6.0 L (6.3-8.2) g/dL Albumin 2.7 L (3.5-5.0) g/dL Microbiology - Last 24 Hours (Table) 11/26/21 04:35 Urine Culture - Preliminary Urine,Voided Gram Neg Bacilli Diabetes panel 11/27/21 Range/Units 04:29 Sodium 136 L (137-145) mmol/L Potassium 3.9 (3.5-5.1) mmol/L Chloride 111 H (98-107) mmol/L Carbon Dioxide 21 L (22-30) mmol/L BUN 9 (7-17) mg/dL Creatinine 0.74 (0.52-1.04) mg/dL Glucose 103 H (74-99) mg/dL Calcium 8.4 (8.4-10.2) mg/dL AST 25 (14-36) U/L ALT 9 (4-34) U/L Alkaline Phosphatase 91 (38-126) U/L Total Protein 6.0 L (6.3-8.2) g/dL Albumin 2.7 L (3.5-5.0) g/dL Calcium panel 11/27/21 Range/Units 04:29 Calcium 8.4 (8.4-10.2) mg/dL Albumin 2.7 L (3.5-5.0) g/dL Pituitary panel 11/27/21 Range/Units 04:29 Sodium 136 L (137-145) mmol/L Potassium 3.9 (3.5-5.1) mmol/L Chloride 111 H (98-107) mmol/L Carbon Dioxide 21 L (22-30) mmol/L BUN 9 (7-17) mg/dL Creatinine 0.74 (0.52-1.04) mg/dL Glucose 103 H (74-99) mg/dL Calcium 8.4 (8.4-10.2) mg/dL Adrenal panel 11/27/21 Range/Units 04:29 Sodium 136 L (137-145) mmol/L Potassium 3.9 (3.5-5.1) mmol/L Chloride 111 H (98-107) mmol/L Carbon Dioxide 21 L (22-30) mmol/L BUN 9 (7-17) mg/dL Creatinine 0.74 (0.52-1.04) mg/dL Glucose 103 H (74-99) mg/dL Calcium 8.4 (8.4-10.2) mg/dL Total Bilirubin 0.4 (0.2-1.3) mg/dL AST 25 (14-36) U/L ALT 9 (4-34) U/L Alkaline Phosphatase 91 (38-126) U/L Total Protein 6.0 L (6.3-8.2) g/dL Albumin 2.7 L (3.5-5.0) g/dL
[2021-11-27 13:53] LABS: Basophils # (A) 0.04 X 10*3/uL (0.00-0.10); Basophils % (A) 0.6 %; Eosinophils # (A) 0.41 X 10*3/uL (0.04-0.35); Eosinophils % (A) 6.3 %; HCT 29.6 % (37.2-46.3); HGB 8.9 g/dL (12.0-15.0); Immature Grans, Automated 0.3 %; Lymphocytes # (A) 2.07 X 10*3/uL (0.90-5.00); Lymphocytes % (A) 31.9 %; MCHC 30.1 g/dL (32.0-37.0); MCV 79.8 fL (80.0-97.0); Monocytes # (A) 0.74 X 10*3/uL (0.20-1.00); Monocytes % (A) 11.4 %; NRBC Per 100 WBC 0 /100 WBCS (0.0-0.0); Neutrophils % (A) 49.5 %; Platelet Count 161 X 10*3/uL (140-440); RBC 3.71 X 10*6/uL (4.10-5.20); WBC 6.48 X 10*3/uL (4.50-10.00)
[2021-11-27] MEDS: ERTAPENEM 1 GM in SODIUM CHLORIDE 0.9% 50 ML IVPB SCH (16:54)
[2021-11-27] MEDS ORDERED: MORPHINE SULFATE 2 MG/ML SYRINGE IVP PRN (19:25)
[2021-11-27] MEDS: ATORVASTATIN 10 MG TAB PO SCH (19:34)
[2021-11-27] MEDS: ACETAMINOPHEN TAB 325 MG TAB PO PRN (19:34)
--- NOTE | 2021-11-27 23:43 | P.PN ---
Subjective Progress Note Date: 11/27/21 Principal diagnosis: Urinary tract infection Patient is 81-year-old female with a past medical history significant for recurrent urinary tract infection, presenting to the hospital with the lower abdominal pain and bleeding per rectum and did have a positive UA concerning for symptomatic urinary tract infection. On today's evaluation that is 11/27/2021, patient denies having any fever or chills, patient still complaining of crampy lower abdominal pain and no further bleeding per rectum patient denies having any chest pain shortness of breath or cough no nausea no vomiting Objective - Vital Signs Vital signs: Vital Signs Temp 97.4 F L 11/27/21 08:06 Pulse 61 11/27/21 08:06 Resp 16 11/27/21 08:06 BP 147/72 11/27/21 08:06 Pulse Ox 99 11/27/21 08:06 Intake & Output 11/26/21 11/27/21 11/27/21 18:59 06:59 18:59 Intake Total 540 Balance 540 Intake: Oral 540 Other: # Voids 3 3 # Bowel Movements 1 - Exam GENERAL DESCRIPTION: An elderly female lying in bed in no distress RESPIRATORY SYSTEM: Unlabored breathing , decreased breath sounds at bases HEART: S1 S2 regular rate and rhythm , ABDOMEN: Soft , no tenderness EXTREMITIES: No edema fee - Labs CBC & Chem 7: 11/27/21 04:29 11/27/21 04:29 Labs: Abnormal Lab Results - Last 24 Hours (Table) 11/26/21 11/26/21 11/27/21 Range/Units 16:10 20:55 04:29 RBC 3.76 L 3.71 L (3.80-5.40) m/uL Hgb 9.6 L 9.7 L 8.9 L (11.4-16.0) gm/dL Hct 30.8 L 32.7 L 29.6 L (34.0-46.0) % MCV 79.8 L (80.0-97.0) fL MCH 24.5 L 24.0 L (25.0-35.0) pg MCHC 29.7 L 30.1 L (31.0-37.0) g/dL RDW 21.2 H 21.7 H 24.0 H (11.5-15.5) % Eosinophils # 0.41 H (0.04-0.35) X 10*3/uL Sodium (137-145) mmol/L Chloride (98-107) mmol/L Carbon Dioxide (22-30) mmol/L Glucose (74-99) mg/dL Total Protein (6.3-8.2) g/dL Albumin (3.5-5.0) g/dL 11/27/21 Range/Units 04:29 RBC (3.80-5.40) m/uL Hgb (11.4-16.0) gm/dL Hct (34.0-46.0) % MCV (80.0-97.0) fL MCH (25.0-35.0) pg MCHC (31.0-37.0) g/dL RDW (11.5-15.5) % Eosinophils # (0.04-0.35) X 10*3/uL Sodium 136 L (137-145) mmol/L Chloride 111 H (98-107) mmol/L Carbon Dioxide 21 L (22-30) mmol/L Glucose 103 H (74-99) mg/dL Total Protein 6.0 L (6.3-8.2) g/dL Albumin 2.7 L (3.5-5.0) g/dL Microbiology - Last 24 Hours (Table) 11/26/21 04:35 Urine Culture - Preliminary Urine,Voided Gram Neg Bacilli Assessment and Plan (1) UTI (urinary tract infection) Current Visit: No Status: Acute Code(s): N39.0 - URINARY TRACT INFECTION, SITE NOT SPECIFIED SNOMED Code(s): 41647590 Plan: Patient with 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 coli, we will discontinue Zyvox. Start the patient on Invanz 1 g daily while waiting for the cultures to finalize Time with Patient: Less than 30
[2021-11-28] MEDS: METOPROLOL TARTRATE 50 MG TAB PO SCH ×2 (07:21→19:55)
[2021-11-28] MEDS: PANTOPRAZOLE 40 MG TABLET PO SCH ×2 (07:21→16:49)
[2021-11-28] MEDS: ERTAPENEM 1 GM in SODIUM CHLORIDE 0.9% 50 ML IVPB SCH (07:21)
[2021-11-28] MEDS: amLODIPine 5 MG TAB PO SCH (07:21)
[2021-11-28] MEDS: lisinopriL 20 MG TAB PO SCH (07:22)
[2021-11-28] MEDS: SODIUM CHLORIDE 0.9% 1,000 ML IV SCH (09:07)
[2021-11-28 10:15] LABS: Magnesium 1.7 mg/dL (1.5-2.4)
[2021-11-28 10:19] LABS: African American GFR (CKD) 92.9 (60.0-200.0); Albumin 3.2 g/dL (3.8-4.9); Albumin/Globulin Ratio 1.19 (1.60-3.17); Anion Gap 11.5 mmol/L (10.00-18.00); BUN/Creat Ratio 8.57 Ratio (12.00-20.00); Calcium 8.4 mg/dL (8.7-10.3); Carbon Dioxide 20.5 mmol/L (20.0-27.5); Globulin 2.7 g/dL (1.6-3.3); Non-African American GFR(CKD) 80.1 (60.0-200.0); Potassium 3.9 mmol/L (3.5-5.5); Total Bilirubin 0.2 mg/dL (0.30-1.20); Total Protein 5.9 g/dL (6.2-8.2)
--- NOTE | 2021-11-28 10:26 | P.PN ---
<Trae Cha - Last Filed: 11/28/21 10:10> Subjective Progress Note Date: 11/28/21 Hospital course: Patient is a very pleasant 80-year-old female with a past medical history of h ypertension, hyperlipidemia, GERD, GI bleed with findings of grade II internal hemorrhoids per colonoscopy completed 10/10/21., recent VRE UTI and previous ESBL UTI. Patient presented to the emergency department on 11/25/21 with a chief complaint of hematochezia with reports of rectal bleeding accompanied by reports of dysuria, incontinence, urinary frequency, and urinary urgency. She was seen and fully evaluated in the emergency department. She was found to have a UTI and stable hemoglobin of 10.6. Patient started on IV antibiotic Linezolid for treatment of UTI secondary to recent VRE positive urine culture. 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 Urine culture resulting positive for ESBL E. coli. Antibiotic changed to ertapenem 1 g daily. Physical exam: Patient seen and fully evaluated at the bedside this morning. Patient resting comfortably in bed showing no signs of acute distress. Urine culture resulting positive for ESBL E. coli. Antibiotic changed to ertapenem 1 g daily. Order placed for PICC line placement as patient will need to be discharged on IV antibiotics. Patient continues to report improvement in this area but states continued urinary frequency, urgency, and incontinence. She denies any other complaints including fever, chills, headache, lightheadedness, chest pain, palpitations, shortness of breath, or abdominal pain. Patient tolerating full liquid diet, IV fluids discontinued at this time. Denies any further episodes of rectal bleeding. Awaiting morning labs to result. Patient to continue GI prophylaxis with Protonix 40 mg twice a day and SCDs for DVT prophylaxis. Vital signs reviewed and stable. General: Nontoxic, no distress and appears stated age. Derm: Skin warm and dry, normal coloration for ethnicity. Head: Atraumatic, normocephalic and symmetric. Eyes: EOMs intact, no lid lag, and anicteric sclera Mouth: no lip lesions, mucus membranes moist Cardiovascular: regular rate and rhythm with normal S1S2, no murmur, positive posterior tibial pulses bilaterally, and cap refill < 2 seconds. Lungs: Respirations even, regular, and unlabored on room air. Lungs CTA bilaterally, no rhonchi, no rales, no wheezing, and no accessory muscle usage. Abdominal: soft, nontender to palpation, no guarding, no appreciable organomegaly Ext: ROM intact. No gross muscle atrophy, no edema, no contractures Neuro: Speech clear, face symmetrical and CN II-XII grossly intact with no noted focal neuro deficits Psych: Alert and oriented to person, place, time, and situation. Appropriate and pleasant affect. Assessment and Plan of Care:. GI bleed with reports of hematochezia and history of grade II internal hemorrhoids -Consult general surgery, appreciate further recommendations. -Continue to monitor H&H and transfuse as needed for hemoglobin less than 7. -Protonix 40 mg twice daily. -Continue full diet pending further recommendations from general surgery. -Continued gentle hydration with 0.9% normal. -SCDs for DVT prophylaxis. ESBL E. coli UTI -Urine culture positive for ESBL -IV antibiotics ertapenem 1 g daily -Infectious disease following -Bladder management Hypertension -Monitor vital signs and continue daily medication regimen with amlodipine and metoprolol . Hyperlipidemia -Continue daily medication regimen with atorvastatin 10 mg nightly. GERD -GI prophylaxis with Protonix 40 mg IVP twice daily Previous ORIF of left ankle 08/02/21, patient reports chronic pain -Continue fall precautions and provide patient assistance as needed. -Symptomatic care and pain management as patient still reports occasional discomfort and left ankle. CODE STATUS: Full code DVT prophylaxis: SCDs Discussed with: Patient and RN Anticipated discharge date: Clinical course to determine Anticipated discharge place: Home A total of 45 minutes was spent on the care of this complex patient more than 50% of the time was spent in counseling and care coordination. Objective - Vital Signs Vital signs: Vital Signs Temp 98.4 F 11/28/21 00:50 Pulse 54 L 11/28/21 00:50 Resp 14 11/28/21 00:50 BP 129/71 11/28/21 00:50 Pulse Ox 98 11/28/21 00:50 Intake & Output 11/27/21 11/28/21 11/28/21 18:59 06:59 18:59 Other: # Voids 4 4 - Labs CBC & Chem 7: 11/27/21 04:29 11/27/21 04:29 Labs: Abnormal Lab Results - Last 24 Hours (Table) 11/27/21 11/27/21 Range/Units 04:29 04:29 RBC 3.71 L (4.10-5.20) X 10*6/uL Hgb 8.9 L (12.0-15.0) g/dL Hct 29.6 L (37.2-46.3) % MCV 79.8 L (80.0-97.0) fL MCH 24.0 L (27.0-32.0) pg MCHC 30.1 L (32.0-37.0) g/dL RDW 24.0 H (11.5-14.5) % Eosinophils # 0.41 H (0.04-0.35) X 10*3/uL Sodium 136 L (137-145) mmol/L Chloride 111 H (98-107) mmol/L Carbon Dioxide 21 L (22-30) mmol/L Glucose 103 H (74-99) mg/dL Total Protein 6.0 L (6.3-8.2) g/dL Albumin 2.7 L (3.5-5.0) g/dL Microbiology - Last 24 Hours (Table) 11/26/21 04:35 Urine Culture - Preliminary Urine,Voided Gram Neg Bacilli <Joni Tan - Last Filed: 11/28/21 14:18> Subjective Progress Note Date: 11/28/21 I reviewed the documentation as provided by the DAYANA above, who is the original author of this note. I agree with the documented assessment and plan, with the following changes: None Objective - Vital Signs Vital signs: Vital Signs Temp 97.6 F 11/28/21 08:00 Pulse 54 L 11/28/21 08:00 Resp 14 11/28/21 00:50 BP 146/67 11/28/21 08:00 Pulse Ox 98 11/28/21 08:00 Intake & Output 11/27/21 11/28/21 11/28/21 18:59 06:59 18:59 Other: # Voids 4 4 - Labs CBC & Chem 7: 11/28/21 05:50 11/28/21 05:50 Labs: Abnormal Lab Results - Last 24 Hours (Table) 11/28/21 11/28/21 Range/Units 05:50 05:50 RBC 3.81 L (4.10-5.20) X 10*6/uL Hgb 9.0 L (12.0-15.0) g/dL Hct 30.7 L (37.2-46.3) % MCH 23.6 L (27.0-32.0) pg MCHC 29.3 L (32.0-37.0) g/dL RDW 23.4 H (11.5-14.5) % BUN 6.0 L (9.0-27.0) mg/dL BUN/Creatinine Ratio 8.57 L (12.00-20.00) Ratio Calcium 8.4 L (8.7-10.3) mg/dL Total Bilirubin 0.20 L (0.30-1.20) mg/dL ALT 6 L (8-44) U/L Total Protein 5.9 L (6.2-8.2) g/dL Albumin 3.2 L (3.8-4.9) g/dL Albumin/Globulin Ratio 1.19 L (1.60-3.17) g/dL Microbiology - Last 24 Hours (Table) 11/26/21 04:35 Urine Culture - Final Urine,Voided Escherichia coli
[2021-11-28 10:36] LABS: HCT 30.7 % (37.2-46.3); MCH 23.6 pg (27.0-32.0); MCHC 29.3 g/dL (32.0-37.0); MCV 80.6 fL (80.0-97.0); NRBC Per 100 WBC 0 /100 WBCS (0.0-0.0); Platelet Count 155 X 10*3/uL (140-440); RBC 3.81 X 10*6/uL (4.10-5.20); RDW 23.4 % (11.5-14.5); WBC 5.84 X 10*3/uL (4.50-10.00)
--- NOTE | 2021-11-28 12:34 | P.PN ---
<Sujata Roberts - Last Filed: 11/28/21 12:25> Subjective Progress Note Date: 11/28/21 CHIEF COMPLAINT: GI bleed HISTORY OF PRESENT ILLNESS: Patient is seen and examined today as a follow-up. She states she has not had any further bowel movements since yesterday morning which she reports as a small bowel movement brown no blood did have some associated abdominal cramping. She denies any nausea or vomiting. She's been afebrile. Stool cultures and C. diff had not been collected as patient has not had adequate bowel movement. She is requesting increase of her diet. Hemoglobin stable at 9.0 PHYSICAL EXAM: VITAL SIGNS: Reviewed. GENERAL: Well-developed in no acute distress. HEENT: No sclera icterus. Extraocular movements grossly intact. Moist buccal mucosa. Head is atraumatic, normocephalic. ABDOMEN: Soft. Nondistended. Nontender. NEUROLOGIC: Alert and oriented. Cranial nerves II through XII grossly intact. ASSESSMENT: 1. GI bleed. Patient underwent recent EGD and colonoscopy for similar complaints on 10/07/2021 with no evidence of active bleed or old blood noted. 2. Abdominal cramping 3. Anemia 4. Grade 2 internal hemorrhoids 5. E. coli UTI PLAN: 1. Stool cultures, C. diff ordered, pending collection 2. Patient may advance to low-fat low fiber diet 3. No plans at this time for any repeat endoscopic evaluation 4. Follow hemoglobin 5. If patient has no further signs or symptoms of GI blood loss, patient can be cleared from general surgery for discharge Thank you for this consultation, we will continue to follow. The impression and plan of care has been dictated as directed. Dr. Brewster I performed a history and examination of this patient, discussed the same with the dictator. I agree with the dictator's note ,documented as a scribe. Any ad ditional findings or plans will be noted. Objective - Vital Signs Vital signs: Vital Signs Temp 97.6 F 11/28/21 08:00 Pulse 54 L 11/28/21 08:00 Resp 14 11/28/21 00:50 BP 146/67 11/28/21 08:00 Pulse Ox 98 11/28/21 08:00 Intake & Output 02/07/22 02/08/22 02/08/22 18:59 06:59 18:59 Other: # Voids 4 4 - Labs CBC & Chem 7: 11/28/21 05:50 11/28/21 05:50 Labs: Abnormal Lab Results - Last 24 Hours (Table) 11/27/21 11/27/21 Range/Units 04:29 04:29 RBC 3.71 L (4.10-5.20) X 10*6/uL Hgb 8.9 L (12.0-15.0) g/dL Hct 29.6 L (37.2-46.3) % MCV 79.8 L (80.0-97.0) fL MCH 24.0 L (27.0-32.0) pg MCHC 30.1 L (32.0-37.0) g/dL RDW 24.0 H (11.5-14.5) % Eosinophils # 0.41 H (0.04-0.35) X 10*3/uL Sodium 136 L (137-145) mmol/L Chloride 111 H (98-107) mmol/L Carbon Dioxide 21 L (22-30) mmol/L Glucose 103 H (74-99) mg/dL Total Protein 6.0 L (6.3-8.2) g/dL Albumin 2.7 L (3.5-5.0) g/dL Microbiology - Last 24 Hours (Table) 11/26/21 04:35 Urine Culture - Preliminary Urine,Voided Gram Neg Bacilli <Carlos Manuel Brewster - Last Filed: 11/28/21 16:36> Subjective I have personally seen and examined the patient, reviewed the [employer] /PAs history, exam and MDM and agree with the assessment and plan as written. Based on total visit time, I have performed more than 50% of the visit. No further bowel movements. Patient has had some abdominal cramps. Agree with regular diet. Monitor stools. Will follow. Objective - Vital Signs Vital signs: Vital Signs Temp 97.9 F 11/28/21 14:37 Pulse 84 11/28/21 14:37 Resp 17 11/28/21 14:37 BP 123/70 11/28/21 14:37 Pulse Ox 98 11/28/21 08:00 Intake & Output 11/27/21 11/28/21 11/28/21 18:59 06:59 18:59 Other: # Voids 4 4 - Labs CBC & Chem 7: 11/28/21 05:50 11/28/21 05:50 Labs: Abnormal Lab Results - Last 24 Hours (Table) 11/28/21 11/28/21 Range/Units 05:50 05:50 RBC 3.81 L (4.10-5.20) X 10*6/uL Hgb 9.0 L (12.0-15.0) g/dL Hct 30.7 L (37.2-46.3) % MCH 23.6 L (27.0-32.0) pg MCHC 29.3 L (32.0-37.0) g/dL RDW 23.4 H (11.5-14.5) % BUN 6.0 L (9.0-27.0) mg/dL BUN/Creatinine Ratio 8.57 L (12.00-20.00) Ratio Calcium 8.4 L (8.7-10.3) mg/dL Total Bilirubin 0.20 L (0.30-1.20) mg/dL ALT 6 L (8-44) U/L Total Protein 5.9 L (6.2-8.2) g/dL Albumin 3.2 L (3.8-4.9) g/dL Albumin/Globulin Ratio 1.19 L (1.60-3.17) g/dL Microbiology - Last 24 Hours (Table) 11/26/21 04:35 Urine Culture - Final Urine,Voided Escherichia coli
[2021-11-28] MEDS ORDERED: LIDOCAINE 1% INJ 10MG/ML (20 ML MDV) ONE (13:47)
[2021-11-28] MEDS ORDERED: LIDOCAINE 1% INJ 10MG/ML (20 ML MDV) SQ ONE (14:11)
[2021-11-28] MEDS: ACETAMINOPHEN TAB 325 MG TAB PO PRN (16:49)
[2021-11-28] MEDS: ATORVASTATIN 10 MG TAB PO SCH (19:55)
[2021-11-28] MEDS ORDERED: MELATONIN 3 MG TABLET PO SCH (21:00)
--- NOTE | 2021-11-28 23:43 | P.PN ---
Subjective Progress Note Date: 11/28/21 Principal diagnosis: Urinary tract infection Patient is 81-year-old female with a past medical history significant for recurrent urinary tract infection, presenting to the hospital with the lower abdominal pain and bleeding per rectum and did have a positive UA concerning for symptomatic urinary tract infection. On today's evaluation that is 11/28/2021, patient remains to be afebrile, patient lower abdominal pain seemed to have decreased in intensity, and denies further bleeding per rectum patient denies having any chest pain shortness of breath or cough no nausea no vomiting Objective - Vital Signs Vital signs: Vital Signs Temp 97.6 F 11/28/21 08:00 Pulse 54 L 11/28/21 08:00 Resp 14 11/28/21 00:50 BP 146/67 11/28/21 08:00 Pulse Ox 98 11/28/21 08:00 Intake & Output 11/27/21 11/28/21 11/28/21 18:59 06:59 18:59 Other: # Voids 4 4 - Exam GENERAL DESCRIPTION: An elderly female lying in bed in no distress RESPIRATORY SYSTEM: Unlabored breathing , decreased breath sounds at bases HEART: S1 S2 regular rate and rhythm , ABDOMEN: Soft , no tenderness EXTREMITIES: No edema fee - Labs CBC & Chem 7: 11/28/21 05:50 11/28/21 05:50 Labs: Abnormal Lab Results - Last 24 Hours (Table) 11/27/21 11/27/21 11/28/21 Range/Units 04:29 04:29 05:50 RBC 3.71 L 3.81 L (4.10-5.20) X 10*6/uL Hgb 8.9 L 9.0 L (12.0-15.0) g/dL Hct 29.6 L 30.7 L (37.2-46.3) % MCV 79.8 L (80.0-97.0) fL MCH 24.0 L 23.6 L (27.0-32.0) pg MCHC 30.1 L 29.3 L (32.0-37.0) g/dL RDW 24.0 H 23.4 H (11.5-14.5) % Eosinophils # 0.41 H (0.04-0.35) X 10*3/uL Sodium 136 L (137-145) mmol/L Chloride 111 H (98-107) mmol/L Carbon Dioxide 21 L (22-30) mmol/L BUN (9.0-27.0) mg/dL BUN/Creatinine Ratio (12.00-20.00) Ratio Glucose 103 H (74-99) mg/dL Calcium (8.7-10.3) mg/dL Total Bilirubin (0.30-1.20) mg/dL ALT (8-44) U/L Total Protein 6.0 L (6.3-8.2) g/dL Albumin 2.7 L (3.5-5.0) g/dL Albumin/Globulin Ratio (1.60-3.17) g/dL 11/28/21 Range/Units 05:50 RBC (4.10-5.20) X 10*6/uL Hgb (12.0-15.0) g/dL Hct (37.2-46.3) % MCV (80.0-97.0) fL MCH (27.0-32.0) pg MCHC (32.0-37.0) g/dL RDW (11.5-14.5) % Eosinophils # (0.04-0.35) X 10*3/uL Sodium (137-145) mmol/L Chloride (98-107) mmol/L Carbon Dioxide (22-30) mmol/L BUN 6.0 L (9.0-27.0) mg/dL BUN/Creatinine Ratio 8.57 L (12.00-20.00) Ratio Glucose (74-99) mg/dL Calcium 8.4 L (8.7-10.3) mg/dL Total Bilirubin 0.20 L (0.30-1.20) mg/dL ALT 6 L (8-44) U/L Total Protein 5.9 L (6.3-8.2) g/dL Albumin 3.2 L (3.5-5.0) g/dL Albumin/Globulin Ratio 1.19 L (1.60-3.17) g/dL Microbiology - Last 24 Hours (Table) 11/26/21 04:35 Urine Culture - Final Urine,Voided Escherichia coli Assessment and Plan (1) UTI (urinary tract infection) Current Visit: No Status: Acute Code(s): N39.0 - URINARY TRACT INFECTION, SITE NOT SPECIFIED SNOMED Code(s): 53071606 Plan: Patient with 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
[2021-11-29] MEDS: lisinopriL 20 MG TAB PO SCH (07:12)
[2021-11-29] MEDS: PANTOPRAZOLE 40 MG TABLET PO SCH (07:13)
[2021-11-29] MEDS: METOPROLOL TARTRATE 50 MG TAB PO SCH (07:13)
[2021-11-29] MEDS: ERTAPENEM 1 GM in SODIUM CHLORIDE 0.9% 50 ML IVPB SCH (07:13)
[2021-11-29] MEDS: amLODIPine 5 MG TAB PO SCH (07:13)
[2021-11-29 07:23] VITALS: PULSE 60; RESP 18
--- NOTE | 2021-11-29 10:58 | P.PN ---
<Sujata Roberts - Last Filed: 11/29/21 10:57> Subjective Progress Note Date: 11/29/21 CHIEF COMPLAINT: GI bleed HISTORY OF PRESENT ILLNESS: Patient is seen and examined today as a follow-up. She denies any abdominal pain or rectal bleeding She denies any nausea or vomiting. She's been afebrile. Stool cultures and C. diff had not been collected as patient has not had adequate bowel movement. She is tolerating her diet. PHYSICAL EXAM: VITAL SIGNS: Reviewed. GENERAL: Well-developed in no acute distress. HEENT: No sclera icterus. Extraocular movements grossly intact. Moist buccal mucosa. Head is atraumatic, normocephalic. ABDOMEN: Soft. Nondistended. Nontender. NEUROLOGIC: Alert and oriented. Cranial nerves II through XII grossly intact. ASSESSMENT: 1. GI bleed. Patient underwent recent EGD and colonoscopy for similar complaints on 10/07/2021 with no evidence of active bleed or old blood noted. 2. Abdominal cramping 3. Anemia 4. Grade 2 internal hemorrhoids 5. E. coli UTI PLAN: 1. Stool cultures, C. diff ordered, pending collection 2. Continue low-fat low fiber diet 3. No plans at this time for any repeat endoscopic evaluation 4. Follow hemoglobin 5. If patient has no further signs or symptoms of GI blood loss, patient can be cleared from general surgery for discharge Thank you for this consultation, we will continue to follow. The impression and plan of care has been dictated as directed. Dr. Brewster I performed a history and examination of this patient, discussed the same with the dictator. I agree with the dictator's note ,documented as a scribe. Any additional findings or plans will be noted. Objective - Vital Signs Vital signs: Vital Signs Temp 99.5 F 11/29/21 07:22 Pulse 60 11/29/21 07:22 Resp 18 11/29/21 07:22 BP 151/65 11/29/21 07:22 Pulse Ox 93 L 11/29/21 07:22 Intake & Output 11/28/21 11/29/21 11/29/21 18:59 06:59 18:59 Other: Voiding Method Bedside Commode # Voids 1 3 - Labs CBC & Chem 7: 11/28/21 05:50 11/28/21 05:50 Labs: Abnormal Lab Results - Last 24 Hours (Table) 11/28/21 11/28/21 Range/Units 05:50 05:50 RBC 3.81 L (4.10-5.20) X 10*6/uL Hgb 9.0 L (12.0-15.0) g/dL Hct 30.7 L (37.2-46.3) % MCH 23.6 L (27.0-32.0) pg MCHC 29.3 L (32.0-37.0) g/dL RDW 23.4 H (11.5-14.5) % BUN 6.0 L (9.0-27.0) mg/dL BUN/Creatinine Ratio 8.57 L (12.00-20.00) Ratio Calcium 8.4 L (8.7-10.3) mg/dL Total Bilirubin 0.20 L (0.30-1.20) mg/dL ALT 6 L (8-44) U/L Total Protein 5.9 L (6.2-8.2) g/dL Albumin 3.2 L (3.8-4.9) g/dL Albumin/Globulin Ratio 1.19 L (1.60-3.17) g/dL Microbiology - Last 24 Hours (Table) 11/26/21 04:35 Urine Culture - Final Urine,Voided Escherichia coli <Carlos Manuel Brewster - Last Filed: 11/29/21 12:25> Subjective As above. She has not had any bleeding. Hemoglobin is stable. We'll sign off. Please call if bleeding recurs. Objective - Vital Signs Vital signs: Vital Signs Temp 99.5 F 11/29/21 07:22 Pulse 60 11/29/21 07:22 Resp 18 11/29/21 07:22 BP 151/65 11/29/21 07:22 Pulse Ox 93 L 11/29/21 07:22 Intake & Output 11/28/21 11/29/21 11/29/21 18:59 06:59 18:59 Intake Total 90 Balance 90 Intake: Oral 90 Other: Voiding Method Bedside Commode # Voids 1 3 - Labs CBC & Chem 7: 11/28/21 05:50 11/28/21 05:50 Labs: Microbiology - Last 24 Hours (Table) 02/06/22 04:35 Urine Culture - Final Urine,Voided Escherichia coli
--- NOTE | 2021-11-29 14:00 | P.DS ---
Providers Date of admission: 11/26/21 14:33 Expected date of discharge: 11/29/21 Attending physician: Malka Woods MD Consults: 11/26/21 07:58 Consult Physician Routine Consulting Provider: Zofia Mckeon Consult Reason/Comments: UTI w/ recent hx of VRE Do you want consulting provider notified?: Yes 11/26/21 14:36 Consult Physician Routine Consulting Provider: Carlos Manuel Brewster Consult Reason/Comments: GI bleed recent colonoscopy 10/07/21 revealed grade II internal hemorrhoids Do you want consulting provider notified?: Yes Primary care physician: Sudhakar Ferreira MD Hospital Course: Hospital course: Patient is a very pleasant 80-year-old female with a past medical history of hypertension, hyperlipidemia, GERD, GI bleed with findings of grade II internal hemorrhoids per colonoscopy completed 10/10/21., recent VRE UTI and previous ESBL UTI. Patient presented to the emergency department on 11/25/21 with a chief complaint of hematochezia with reports of rectal bleeding accompanied by reports of dysuria, incontinence, urinary frequency, and urinary urgency. She was seen and fully evaluated in the emergency department. She was found to have a UTI and stable hemoglobin of 10.6. Patient started on IV antibiotic Linezolid for treatment of UTI secondary to recent VRE positive urine culture. 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 Urine culture resulting positive for ESBL E. coli. Antibiotic changed to ertapenem 1 g daily. Physical exam: Patient seen and fully evaluated at the bedside this morning. Patient resting comfortably in bed showing no signs of acute distress. Urine culture resulting positive for ESBL E. coli. Antibiotic changed to ertapenem 1 g daily. Order placed for PICC line placement as patient will need to be discharged on IV antibiotics. Patient continues to report improvement in this area but states continued urinary frequency, urgency, and incontinence. She denies any other complaints including fever, chills, headache, lightheadedness, chest pain, palpitations, shortness of breath, or abdominal pain. Patient tolerating full liquid diet, IV fluids discontinued at this time. Denies any further episodes of rectal bleeding. Awaiting morning labs to result. Patient to continue GI prophylaxis with Protonix 40 mg twice a day and SCDs for DVT prophylaxis. Detailed problem list: #GI bleed with reports of hematochezia and history of grade II internal hemorrhoids -Consult general surgery, appreciate further recommendations. -Continue to monitor H&H and transfuse as needed for hemoglobin less than 7. -Protonix 40 mg twice daily. -Continue full diet pending further recommendations from general surgery. #ESBL E. coli UTI -Urine culture positive for ESBL -IV antibiotics ertapenem 1 g daily -Infectious disease following #Hypertension -Monitor vital signs and continue daily medication regimen with amlodipine and metoprolol . #Hyperlipidemia -Continue daily medication regimen with atorvastatin 10 mg nightly. #GERD -GI prophylaxis with Protonix 40 mg IVP twice daily #Previous ORIF of left ankle 08/02/21, patient reports chronic pain -Continue fall precautions and provide patient assistance as needed. -Symptomatic care and pain management as patient still reports occasional discomfort and left ankle. CODE STATUS: Full code Assessment: Vital signs reviewed and stable. General: Nontoxic, no distress and appears stated age. Derm: Skin warm and dry, normal coloration for ethnicity. Head: Atraumatic, normocephalic and symmetric. Eyes: EOMs intact, no lid lag, and anicteric sclera Mouth: no lip lesions, mucus membranes moist Cardiovascular: regular rate and rhythm with normal S1S2, no murmur, positive posterior tibial pulses bilaterally, and cap refill < 2 seconds. Lungs: Respirations even, regular, and unlabored on room air. Lungs CTA bilaterally, no rhonchi, no rales, no wheezing, and no accessory muscle usage. Abdominal: soft, nontender to palpation, no guarding, no appreciable organomegaly Ext: ROM intact. No gross muscle atrophy, no edema, no contractures Neuro: Speech clear, face symmetrical and CN II-XII grossly intact with no noted focal neuro deficits Psych: Alert and oriented to person, place, time, and situation. Appropriate and pleasant affect. Patient Condition at Discharge: Stable Plan - Discharge Summary Discharge Rx Participant: Yes New Discharge Prescriptions: New Pantoprazole [Protonix] 40 mg PO AC-BID tab Ertapenem [INVanz] 1 gm IVPB DAILY each Continue amLODIPine BESYLATE/BENAZEPRIL [Lotrel 5-20 MG] 1 cap PO DAILY Metoprolol Tartrate [Lopressor] 50 mg PO BID Atorvastatin [Lipitor] 10 mg PO HS Ergocalciferol [Vitamin D2 (1250 Mcg = 89326 Iu)] 1,250 mcg PO WORKMAN Discontinued Dicyclomine [Bentyl] 10 mg PO TID PRN PRN Reason: ibs Aspirin EC [Ecotrin] 325 mg PO DAILY PRN PRN Reason: Pain Famotidine 10 mg PO BID Discharge Medication List Atorvastatin [Lipitor] 10 mg PO HS 07/04/17 [History] Metoprolol Tartrate [Lopressor] 50 mg PO BID 07/04/17 [History] amLODIPine BESYLATE/BENAZEPRIL [Lotrel 5-20 MG] 1 cap PO DAILY 07/04/17 [History] Ergocalciferol [Vitamin D2 (1250 Mcg = 48065 Iu)] 1,250 mcg PO WORKMAN 10/05/21 [History] Ertapenem [INVanz] 1 gm IVPB DAILY each 11/29/21 [Rx] Pantoprazole [Protonix] 40 mg PO AC-BID tab 11/29/21 [Rx] Follow up Appointment(s)/Referral(s): Cortez Cook NPC [REFERRING] - 1-2 Days [facility], [NON-STAFF] - Discharge Disposition: TRANSFER TO SNF/ECF
[2021-11-29 14:47] VITALS: BP 122/78; TEMP 97
== END 2021-11-29 15:34 | DRG 394 ==
LOC: EC 16:11 → 4SSUR 20:07 → OBSVTOIN 11-26 14:33
PROVIDERS: ADMIT Internal Medicine; ATTEND Internal Medicine
PROC: 02HV33Z Insertion of Infusion Device into Superior Vena Cava, Percutaneous Approach (ICD-10-PCS; principal; 2021-11-28 07:30)
DX: K64.1 Second degree hemorrhoids (principal); N39.0 Urinary tract infection, site not specified; Z16.12 Extended spectrum beta lactamase (ESBL) resistance; B96.20 Unspecified Escherichia coli [E. coli] as the cause of diseases classified elsewhere; Z20.822 Contact with and (suspected) exposure to COVID-19; D64.9 Anemia, unspecified; E11.9 Type 2 diabetes mellitus without complications; G89.29 Other chronic pain; E78.5 Hyperlipidemia, unspecified; I10 Essential (primary) hypertension; K44.9 Diaphragmatic hernia without obstruction or gangrene; K57.30 Diverticulosis of large intestine without perforation or abscess without bleeding; Z79.82 Long term (current) use of aspirin; Z79.899 Other long term (current) drug therapy; Z87.440 Personal history of urinary (tract) infections; Z88.0 Allergy status to penicillin; Z88.2 Allergy status to sulfonamides; Z90.49 Acquired absence of other specified parts of digestive tract
CPT/HCPCS: 36415; 36573; 80053; 81001; 83735; 85025; 85027; 85610; 85730; 86850; 86900; 86901; 87077; 87086; 87186; 87635; 99285

== ENCOUNTER → 2022-08-06 | Outpatient (CLI) | payer MEDICARE, BC ==
--- NOTE | 2022-08-06 13:22 | CT ---
EXAMINATION TYPE: CT iac wo con DATE OF EXAM: 08/06/2022 COMPARISON: CT brain March 25, 2019 HISTORY: hearing loss CT DLP: 150 mGycm. Automated Exposure Control for Dose Reduction was Utilized. TECHNIQUE: CT scan of internal auditory canal is performed without contrast, thin cut axial images ar e obtained, coronal reformatted images are also reviewed. FINDINGS: Patchy cerumen in the deep right extra auditory canal axial image 37 abutting the round win sumi is redemonstrated. Mastoid air cells show no evidence of abnormal opacification bilaterally. The middle ear ossicles are symmetric and unremarkable. There is no evidence of suspicious surroundi ng soft tissue density to suggest cholesteatoma. The scutum is preserved bilaterally. The cochlea and the semicircular canals are symmetric and unremarkable. Satisfactory superior bony co verage of the superior semicircular canals is present. Vestibular aqueduct and internal carotid deonna l appear within normal limits. Temporomandibular joints are maintained bilaterally. Minimal mucosal thickening involving anterior et hmoid sinuses. Nasal septum remains slightly deviated to right of midline. At least Mild bilateral fr ontal lobe atrophy redemonstrated. IMPRESSION: No significant abnormality seen to account for patient's symptoms of unspecified hearing loss.
== END | disposition home or self-care (01) ==
LOC: RADCTMAIN 11:24
PROVIDERS: ATTEND Otolaryngology
DX: H91.90 Unspecified hearing loss, unspecified ear (principal)
CPT/HCPCS: 70480

== ENCOUNTER → 2023-06-27 | Outpatient (CLI) | payer MEDICARE, BC ==
[2023-06-27 10:28] LABS: HCT 41.6 % (34.0-46.0); HGB 13.2 gm/dL (11.4-16.0); MCH 31.4 pg (25.0-35.0); MCHC 31.8 g/dL (31.0-37.0); Mean Platelet Volume 9.8; Platelet Count 165 k/uL (150-450); RBC 4.21 m/uL (3.80-5.40); RDW 13.2 % (11.5-15.5); WBC 6.7 k/uL (3.8-10.6)
[2023-06-27 11:51] LABS: ALT 21 U/L (4-34); AST 41 U/L (14-36); African American GFR (CKD) 84 (>60 ml/min/1.73 sqM); Albumin 3.7 g/dL (3.5-5.0); Alkaline Phosphatase 91 U/L (38-126); Anion Gap 8 mmol/L; Blood Urea Nitrogen 12 mg/dL (7-17); Calcium 9.7 mg/dL (8.4-10.2); Carbon Dioxide 29 mmol/L (22-30); Chloride 102 mmol/L (98-107); Globulin 3.7 g/dL; Glucose 228 mg/dL (74-99); Non-African American GFR(CKD) 73 (>60 ml/min/1.73 sqM); Potassium 4.5 mmol/L (3.5-5.1); Sodium 139 mmol/L (137-145); Total Bilirubin 0.6 mg/dL (0.2-1.3); Total Protein 7.4 g/dL (6.3-8.2)
[2023-06-27 13:16] LABS: Eosinophils # (M) 0.47 k/uL (0-0.7); Lymphocytes # (M) 1.07 k/uL (1.0-4.8); Monocytes # (M) 0.54 k/uL (0-1.0); Neutrophils # (M) 4.62 k/uL (1.3-7.7); Neutrophils % (M) 69 %; Nucleated Red Blood Cells 0 /100 WBC (0-0); RBC Morphology Normal; Total Cells Counted 100
[2023-06-27 16:22] LABS: Chol/HDL Ratio 2.17 Ratio; LDL Cholesterol,Calculated 61.8 mg/dL (0.0-131.0); VLDL Calculation 13.68 mg/dL (5.00-40.00)
[2023-06-27 18:41] LABS: Hepatitis C IgG Antibody Nonreactive
[2023-06-27 19:57] LABS: HIV 2 AB Non-Reactive (Non-Reactive); HIV AB P24 Non-Reactive (Non-Reactive); HIV P24 AG Non-Reactive (Non-Reactive)
--- NOTE | 2023-06-28 09:39 | CT ---
EXAMINATION TYPE: CT ChestAbdPelvis w con DATE OF EXAM: 06/27/2023 INDICATION: abnormal weight loss COMPARISON: 10/05/2021 CT DLP: 468.8 mGycm CONTRAST: Performed with Oral Contrast and with IV Contrast, patient injected with 100 mL of Isovue 300. TECHNIQUE: Axial images at 5 mm thick sections. Reconstructed images in the coronal plane. Delayed images through the kidneys. FINDINGS: CT CHEST: Portion of the thyroid visualized is normal. No suspicious lung nodules or focal infiltrates are present. Chronic pulmonary fibrosis is present bi laterally. No enlarged mediastinal or hilar adenopathy is evident. The ascending aorta diameter at the level of the main pulmonary artery is 3.8 cm. The main pulmonary artery diameter at the bifurcation is 2.3 cm. There are moderate size hiatal hernia is present with herniation of the stomach into the lower posterior thoracic region. The GE junction is above the diap hragm. CT ABDOMEN: Liver: Normal Spleen: Normal Pancreas: Normal Adrenal glands: The adrenal glands are normal. Gallbladder: Surgically absent Kidneys: No masses are evident. No hydronephrosis is present. There is a 2.4 cm cortical renal cyst anterior mid right kidney. There is a 1.8 cm cortical renal cyst superior anterolateral left kidney. There is a 1.1 cm cyst lateral right kidney Delayed images were obtained through the kidneys, which remain unremarkable. Aorta: Vascular calcification is within the aorta. There is some ectasia of the abdominal aorta. Gr eatest transverse dimension and distal abdominal aorta measures 2.3 cm. Inferior vena cava: Normal. CT PELVIS: Loops of bowel within the abdomen and pelvis are normal. There are loops of bowel which are incom pletely distended or lack oral contrast limiting their evaluation. Appendix: Not identified. No dilated tubular structure or inflammatory changes evident. Urinary bladder: There is mild diffuse wall thickening through the urinary bladder. Consider cystitis . Genitourinary structures: Uterus and ovaries appear appropriate for age. Osseous structures: No suspicious lytic or sclerotic lesions. IMPRESSION: 1. Pulmonary fibrosis worsening from 2020. 2. 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 3. Mild ectasia of the abdominal aorta. 4. Diffuse wall thickening through the urinary bladder. Consider cystitis. 5. Bilateral renal cysts
[2023-06-28 09:56] LABS: Albumin 3.9 d/dL (3.8-4.9); Protein, Total 7.2 d/dL (6.2-8.2)
[2023-06-29 11:15] LABS: Gamma Globulin 1.52 d/dL (0.70-1.50)
== END | disposition home or self-care (01) ==
LOC: RADCTMAIN 09:43
PROVIDERS: ATTEND Internal Medicine
DX: I77.811 Abdominal aortic ectasia (principal); J84.10 Pulmonary fibrosis, unspecified; N28.1 Cyst of kidney, acquired; N32.89 Other specified disorders of bladder; E11.9 Type 2 diabetes mellitus without complications; R63.4 Abnormal weight loss
CPT/HCPCS: 86803; 80061; 80053; 84443; 85027; 84165; 87390; 83036; 71260; 74177; 36415; Q9967

== ENCOUNTER → 2024-04-30 | Outpatient (CLI) | payer MEDICARE, BC ==
--- NOTE | 2024-04-30 21:18 | US ---
EXAMINATION TYPE: US kidneys/renal and bladder DATE OF EXAM: 04/30/2024 COMPARISON: CT 06/27/2023 CLINICAL INDICATION: Female, 83 years old with history of R31.29 OTHER MICROSCOPIC HEMATURIA; Hematur ia. Frequent urination. EXAM MEASUREMENTS: Right Kidney: 9.6 x 4.6 x 4.3 cm Left Kidney: 9.7 x 4.8 x 4.4 cm Right Kidney: -Anechoic area seen lower: 1.3 x 1.3 x 0.9 cm. -Complex area seen medially: 2.4 x 2.3 x 2.4 cm. Monitoring is recommended. *Hyperechoic focus seen at mid: 0.5 x 0.4 x 0.4 cm. Correlate for nonobstructing renal stone Left Kidney: -Anechoic area seen upper-medially: 1.8 x 1.6 x 1.6 cm. -Anechoic area seen upper-laterally: 1.9 x 1.4 x 1.6 cm. Bladder: Slightly limited due to patient's difficulty holding full bladder. Possible echogenic material seen within the bladder: 3.7 x 1.6 x 0.6 cm. Bilateral Jets seen: No, unable to properly evaluate due to artifact from movement. IMPRESSION: 1. Bilateral renal cysts. There is a complex cyst on the right kidney. Monitoring with follow-up exam in 6 months is recommended. 2. Nonobstructing right renal stone 3. Debris likely present within the urinary bladder.
== END | disposition home or self-care (01) ==
LOC: RADUSWWP 15:36
PROVIDERS: ATTEND Internal Medicine
DX: R31.29 Other microscopic hematuria (principal); N28.1 Cyst of kidney, acquired; N20.0 Calculus of kidney
CPT/HCPCS: 76770